=== PATIENT | female | born 1980 | race Caucasian/White ===

== ENCOUNTER 2024-11-27 20:15 | Emergency (ER) | payer OTHER, SELFPAY ==
--- NOTE | ~2024-11-27 | XR_ITS ---
EXAMINATION: XR chest 2V DATE: 11/27/2024 21:19 INDICATION: Shortness of breath. TECHNIQUE: Frontal and lateral views of the chest were obtained. COMPARISON: None. FINDINGS: There is mild atelectasis in left lower lung zone. No pleural effusion or pneumothorax. The heart size is normal. Surgical clips in the right upper quadrant are likely from cholecystectomy. IMPRESSION: 1. Mild atelectasis in left lower lung zone. Reviewed, dictated and finalized at location A. AT [facility]
[2024-11-27 20:20] VITALS: BP 179/100; PULSE 105; RESP 19; TEMP 36.2; O2SAT 99
--- NOTE | 2024-11-27 20:20 | ECG_ITS ---
Test Date: 2024-11-27 20:26:46 Measurements Intervals [place] Rate: 95 P: 40 GA: 163 QRS: 29 QRSD: 84 T: 39 QT: 342 QTc: 431 Interpretive Statements SINUS RHYTHM NORMAL ECG No previous ECG available for comparison Electronically Signed On 11-28-2024 07:03:46 TYPER by Jay Cotton D.O.
[2024-11-27 20:54] LABS: Basophils Absolute Auto 0.1 K/mm3 (0.0-0.1); Basophils Percent Auto 0.6 % (0.2-1.2); Eosinophils Absolute Auto 0.1 K/mm3 (0-0.3); Eosinophils Percent Auto 1.6 % (0-4.4); Hematocrit 34.7 % (37.0-47.0); Hemoglobin 10.5 g/dL (12.0-15.0); Immature Granulocyte Absolute 0.02 K/mm3 (0.00-0.031); Immature Granulocyte Percent A 0.2 % (0-0.5); Lymphocytes Absolute Auto 2.64 K/mm3 (0.9-3.2); Mean Corpuscular HGB Conc 30.3 g/dl (32-36); Mean Corpuscular Hemoglobin 23.3 pg (26-34); Mean Corpuscular Volume 77.1 fl (80-100); Mean Platelet Volume 9.9 fl (7.4-10.4); Monocytes Absolute Auto 0.6 K/mm3 (0.1-0.6); Monocytes Percent Auto 6.7 % (2.6-8.5); Neutrophils Absolute Auto 4.9 K/mm3 (1.3-6.7); Neutrophils Percent Auto 58.9 % (45.5-73.1); Platelet Count Result 261 k/mm3 (150-375); White Blood Count 8.2 K/mm3 (4.5-10.0)
[2024-11-27 21:07] LABS: Alanine Aminotransferase 18 U/L (6-35); Albumin Level 4.2 g/dL (3.5-5.1); Alkaline Phosphatase 113 U/L (38-126); Anion Gap 8 mmol/L (4-12); Aspartate Amino Transferase 19 U/L (14-36); Bilirubin,Total 0.4 mg/dL (0.2-1.3); Blood Urea Nitrogen 12 mg/dL (7-17); Calcium 9.5 mg/dL (8.4-10.2); Carbon Dioxide 28 mmol/L (22-30); Chloride 104 mmol/L (98-107); Estimated CRCL calculation 87 ml/min; Estimated Glomerular Filt Rate > 60; Glucose 127 mg/dL (65-110); Potassium 3.8 mmol/L (3.4-5.0); Sodium 140 mmol/L (137-145)
[2024-11-27 22:06] LABS: NT Pro B Type Natriuretic Pept 35 pg/mL (19.9-100)
[2024-11-27 22:24] VITALS: BP 156/90; PULSE 101; RESP 16; O2SAT 98
[2024-11-27 23:43] LABS: Influenza A QL RT-PCR Negative (Negative); Influenza B QL RT-PCR Negative (Negative); RSV RNA, RT-PCR Negative (Negative); SARS-CoV-2 RNA PCR Negative (Negative)
--- NOTE | 2024-11-28 00:15 | PC.NURSE ---
Report received from WALI Sauer. Assumed care of patient at this time.
--- NOTE | 2024-11-28 00:35 | ED.GENADULT ---
HPI - General Adult General Chief complaint: Shortness of Breath/Dyspnea Stated complaint: SOB Time Seen by Provider: 11/27/24 23:52 History of Present Illness HPI narrative: Patient is a 44-year-old female who presents emergency department this evening with multiple complaints. Patient states that for the past week she has been having a dry cough, shortness of breath, and noticed some lower extremity swelling. Patient is also complaining of hypertension and states that her blood pressure has been running high which is unusual for her. She admits that her blood pressure medication was recently adjusted, increased and she has been monitoring her blood pressure at home as instructed by her PCP, checking it twice daily. Currently denying any chest pain. Patient also denies any history of heart failure. No additional symptoms or concerns at this time. Related Data Allergies Allergy/AdvReac Type Severity Reaction Status Date / Time No Known Allergies Allergy Verified 11/27/24 20:20 Review of Systems Review of Systems: All systems are reviewed and are negative unless stated otherwise in the HPI. Exam Narrative: General: Alert, awake, afebrile, in no acute distress, obese. HEENT: PERRL, no rhinorrhea, no post nasal drip, oropharynx clear. Neck: Trachea midline, no JVD, no lymphadenopathy. Cardiovascular: Regular rate and rhythm, no murmurs, rubs or gallops, 1+ bilateral lower extremity pitting edema. Respiratory: Clear to auscultation bilaterally, no tachypnea, no wheezing, no rhonchi, no rubs, no respiratory distress. Abdomen: Soft, nontender, nondistended, no rebound, no guarding, no peritoneal signs. Musculoskeletal: No joint swelling or deformity, normal muscle tone. Skin: No rashes or petechia, no signs of infection. Psychiatric: Alert and oriented, normal behavior and judgment for situation. Neurological: Alert and oriented to person, place, and time. Follows all commands. No focal deficits, speech is clear and fluent. Course Vital Signs Vital signs: Vital Signs Temperature 97.1 F L 11/27/24 20:20 Pulse Rate 105 H 11/27/24 20:20 Respiratory Rate 19 11/27/24 20:20 Blood Pressure 179/100 H 11/27/24 20:20 Pulse Oximetry 99 11/27/24 20:20 Oxygen Delivery Room Air 11/27/24 20:20 Temperature 97.1 F L 11/27/24 20:20 Pulse Rate 101 H 11/27/24 22:24 Respiratory Rate 16 11/27/24 22:24 Blood Pressure 156/90 H 11/27/24 22:24 Pulse Oximetry 98 11/27/24 22:24 Oxygen Delivery Room Air 11/27/24 20:20 Medical Decision Making MDM Narrative Medical decision making narrative: The patient was evaluated by myself in the emergency department. History is obtained from patient who is an independent historian and physical exam was performed. External medical records were reviewed at this time. IV was established and pertinent tests were ordered. EKG was obtained which revealed sinus rhythm rate of 95 beats per minute. No ST changes, T wave inversions or evidence of acute ischemia. EKG was independently interpreted by me and is currently pending official cardiology read. Laboratory results obtained revealing no acute process. BNP was obtained and noted to be normal at 35. At this time patient was informed of these findings at bedside and recommended to wear compression stockings as this may help with her lower extremity edema as well as following up with her primary care physician and patient is agreeable. Imaging studies obtained included CXR which was independently interpreted by me revealing no acute cardiopulmonary process, which is pending final radiology interpretation. Differential diagnosis considerations include heart failure, lymphedema, DVT, venous insufficiency, acute viral syndrome, infectious process such as pneumonia. Comorbidities impacting this visit include history of hypertension. I have evaluated and discussed social determinants of health with the patient that could potentially impact subsequent diagnosis and treatment plans. On repeat assessment of the patient, reevaluation revealed that the patient is doing well and is in no acute distress. Patient symptoms remained stable since she arrived to our emergency department. Repeat vital signs were all reviewed and noted to be stable. Differential diagnosis and treatment plan were discussed with the patient at bedside. Patient agrees with discussion and after shared medical decision making agrees with discharge. All questions were answered to the patient's satisfaction. Patient will follow up with her PCP in 3-5 days. Patient was provided with strict return precautions and instructed to return to the emergency department if any new or worsening symptoms develop. The patient was discharged in stable condition. Vital Signs Vital Signs: Vital Signs Temperature 97.1 F L 11/27/24 20:20 Pulse Rate 105 H 11/27/24 20:20 Respiratory Rate 19 11/27/24 20:20 Blood Pressure 179/100 H 11/27/24 20:20 Pulse Oximetry 99 11/27/24 20:20 Oxygen Delivery Room Air 11/27/24 20:20 Temperature 97.1 F L 11/27/24 20:20 Pulse Rate 101 H 11/27/24 22:24 Respiratory Rate 16 11/27/24 22:24 Blood Pressure 156/90 H 11/27/24 22:24 Pulse Oximetry 98 11/27/24 22:24 Oxygen Delivery Room Air 11/27/24 20:20 Lab Data 11/27/24 20:45 11/27/24 20:45 Labs: Lab Results 11/27/24 11/27/24 Range/Units 20:45 23:02 WBC 8.2 (4.5-10.0) K/mm3 RBC 4.50 (4.2-5.4) M/mm3 Hgb 10.5 L (12.0-15.0) g/dL Hct 34.7 L (37.0-47.0) % MCV 77.1 L (80-100) fl MCH 23.3 L (26-34) pg MCHC 30.3 L (32-36) g/dl RDW 16.0 H (11.5-14.5) % Plt Count 261 (150-375) k/mm3 MPV 9.9 (7.4-10.4) fl Immature Gran % (Auto) 0.2 (0-0.5) % Neut % (Auto) 58.9 (45.5-73.1) % Lymph % (Auto) 32.0 (18.3-44.2) % Shackelford % (Auto) 6.7 (2.6-8.5) % Eos % (Auto) 1.6 (0-4.4) % Baso % (Auto) 0.6 (0.2-1.2) % Lymph # (Auto) 2.64 (0.9-3.2) K/mm3 [place]ackelford # (Auto) 0.6 (0.1-0.6) K/mm3 Eos # (Auto) 0.1 (0-0.3) K/mm3 Baso # (Auto) 0.1 (0.0-0.1) K/mm3 Abs Immat Gran (auto) 0.02 (0.00-0.031) K/mm3 Absolute Neuts (auto) 4.9 (1.3-6.7) K/mm3 Absolute Nucleated RBC 0.000 (0.0-0.012) K/mm3 Nucleated RBC % 0.0 (0.0-0.2) % Sodium 140 (137-145) mmol/L Potassium 3.8 (3.4-5.0) mmol/L Chloride 104 (98-107) mmol/L Carbon Dioxide 28 (22-30) mmol/L Anion Gap 8 (4-12) mmol/L BUN 12 (7-17) mg/dL Creatinine 0.89 (0.7-1.0) mg/dL Estim Creat Clear Calc 87 ml/min Estimated GFR > 60 (59 - ) Glucose 127 H (65-110) mg/dL Calcium 9.5 (8.4-10.2) mg/dL Total Bilirubin 0.4 (0.2-1.3) mg/dL AST 19 (14-36) U/L ALT 18 (6-35) U/L Alkaline Phosphatase 113 (38-126) U/L NT-Pro-B Natriuret Pep 35 (19.9-100) pg/mL Total Protein 7.0 (6.3-8.2) g/dL Albumin 4.2 (3.5-5.1) g/dL Influenza A (RT-PCR) Negative (Negative) Influenza B (RT-PCR) Negative (Negative) RSV (RT-PCR) Negative (Negative) SARS-CoV-2 RNA (RT-PCR) Negative (Negative) Discharge Plan Discharge Clinical Impression: Shortness of breath, URI (upper respiratory infection), Swelling of lower extremity Patient Disposition: Home, Self-Care Condition: Stable Instructions: Antibiotic Form, Upper Respiratory Infection (DC), Leg Edema (ED) Additional Instructions: Please follow-up with your family doctor within the next 3-5 days. You were recommended to try compression stocks to see if that helps with your lower extremity edema. Your family doctor may order an ultrasound of your lower extremity to rule out a DVT although this is unlikely given the bilateral nature of your symptoms. You were instructed to continue monitoring your blood pressure at home specially since her medication was recently adjusted. Return to the ED if any new or worsening symptoms develop. Patient Language: Greenlandic Follow-up/Referrals: Wil Nichols MD [Physician] - 3 Days UNKNOWN,DOCTOR [Primary Care Provider] - Time of Disposition: 00:34
[2024-11-28 00:48] VITALS: BP 153/89; PULSE 87; RESP 18; O2SAT 98
--- OUTSIDE RECORDS SUMMARY | 2024-11-28 00:50 | XMS_ITS ---
Author Organization [facility] Planning Address [address] [place] [id number] Care Team Providers Care Wrap Yarn Sorter Name Role Phone Maupin, Sydney Primary Care Provider [phone] REASON FOR VISIT medication refills Medications Medication SIG (Take, Route, Frequency, Duration) Notes Start Date End Date Status oxyBUTYnin Chloride ER 15 MG 1 tablet Orally every 12 hours for 30 days Active Elmiron 100 MG 1 capsule on an empt y stomach Orally every 8 hours for 30 days Active Valtrex 1 GM 1 tablet Orally Once a day for 30 days Active Problems Problem Type SNOMED Code ICD Code Onset Dates Problem Status W/U Status Risk Notes Problem Interstitial cystitis (622118600) Interstitial cystitis (N30.10) Active confirmed Encounters Encounter Location Date Provider Diagnosis [address] [phone] 07/03/2023 Sydney Martínez Herpes simplex B00.9 ; Urinary incontinence R32 and Interstitial cystitis N30.10 Assessments Encounter Date Diagnosis (ICD Code) Assessment Notes Treatment Notes Treatment Clinical Notes Section Notes 07/03/2023 Herpes simplex (ICD-10 - B00.9) 07/03/2023 Urinary incontinence (ICD-10 - R32) 07/03/2023 Interstitial cystitis (ICD-10 - N30.10) Plan Of Treatment Medication Medication Name Sig Start Date Stop Date Notes oxyBUTYnin Chloride ER 15 MG 1 tablet Or ally every 12 hours for 30 days Elmiron 100 MG 1 capsule on an empt y stomach Orally every 8 hours for 30 days Valtrex 1 GM 1 tablet Orally Once a day for 30 days Progress Notes * Michelle BRIGGS RDOB: 2 (42 yo F)Acc No.[id number]:07/03/2023 Patient: Michelle Ware :1980 A ge:42 Y S ex:Female Address:[address] [place] [id number] * Refills Refill Elmiron Capsule, 100 MG, Orally, 90 Capsule, 1 capsule on an empty stomach, every 8 hours, 30 days, Refills=5 Refill Valtrex Tablet, 1 GM, Orally, 30 Tablet, 1 tablet, Once a day, 30 days, Refills=5 Refill oxyBUTYnin Chloride ER Tablet Extended Release 24 Hour, 15 MG, Orally, 60 Tablet, 1 tablet, every 12 hours, 30 days, Refills=5 Subjective: * Chief Complaints: * M edication refills * Medical History: * Surgical History: * Hospitalization/Major Diagno stic Procedure: * Medications: Objective: Assessment: * Assessment: 1. U rinary incontinence - R32 2 . H erpes simplex - B00.9 (Primary) 3 . I nterstitial cystitis - N30.10 Plan: * Treatment: 2. U rinary incontinence Refill Elmiron Capsule, 100 MG, 1 capsule on an empty stomach, Orally, every 8 hours, 30 days, 90 Capsule, Refills 5; R efill oxyBUTYnin Chloride ER Tablet Extended Release 24 Hour, 15 MG, 1 tablet, Orally, every 12 hours, 30 days, 60 Tablet, Refills 5. * Procedure Codes: * true * Date: Generated for Jonnie koroma/Jose/Noemismitting on: 0 11/28/2024 12:50 AM DIVIDING MACHINE OPERATOR
--- OUTSIDE RECORDS SUMMARY | 2024-11-28 00:50 | XMS_ITS | Clinical Summary ---
Author Organization [facility] Address [address] [place] [id number] Care Team Providers Care Coating And Baking Operator Name Role Phone Telma Noel BLOCK MACHINE OPERATOR-C Primary Care Provider [phone] Allergies Active Allergy Reactions Criticality Noted Date Comments Noah Inhibitors Cough Medium 02/24/2014 Metronidazole Nausea And Vomiting 06/28/2024 Medications Medication Sig Dispensed Refills Start Date End Date Status aripiprazole (ABILIFY) 30 MG tablet Take 0.5 tablets (15 mg) by mouth daily Active estradiol (ESTRACE) 1 MG tablet Take 1 tablet (1 mg) by mouth daily Active estradiol (ESTRACE) 2 MG tablet TK ONE T PO ONCE DAILY Active oxyBUTYnin (DITROPAN-XL) 10 MG CR tablet TK 1 T PO ONCE D Active progesterone (PROMETRIUM) 100 MG capsule Take 1 capsule (100 mg) by mouth at bedtime Active valACYclovir (VALTREX) 1000 mg tablet Take 1 tablet (1,000 mg) by mouth daily Active valACYclovir (VALTREX) 500 MG tablet TK 1 T PO Q 24 H Active DULoxetine (CYMBALTA) 60 MG capsule Take 2 capsules (120 mg) by mouth daily Active busPIRone (BUSPAR) 15 MG tablet Take 1 tablet (15 mg) by mouth 2 times daily Active esomeprazole (NEXIUM) 20 MG capsule Take 1 capsule (20 mg) by mouth 2 times daily 60 capsule 2 5 01/18/20 25 Active amphetamine-dextr oamphetamine (ADDERALL) 20 MG tabletIndications :Attention deficit hyperactivity disorder (ADHD), predominantly inattentive type Take 1 tablet (20 mg) by mouth 2 times daily for 30 days 60 tablet 5 12/06/19 25 Active metoprolol succinate (TOPROL XL) 50 MG XL tabletIndications :Hypertension, unspecified type Take 1 tablet (50 mg) by mouth at bedtime for 30 days 30 tablet 5 12/23/19 25 Active amphetamine-dextr oamphetamine (ADDERALL) 20 MG tablet Take 1 tablet (20 mg) by mouth 2 times daily 11/05/19 25 Discontinued(Reo rder) ibuprofen (MOTRIN) 800 MG tablet 1 tablet with food or milk as needed Orally every 8 hrs for 5 days 11/15/19 25 Discontinued hydrOXYzine (VISTARIL) 25 MG capsule 1-2 capsule as needed Orally every 8 hrs 8 11/15/19 25 Discontinued Vitamin D, Ergocalciferol, [address] UNIT capsuleIndication s:Vitamin D Deficiency Take 1 capsule (50,000 Units) by mouth every 7 days Indications: Vitamin D Deficiency 5 capsule 2 4 11/08/19 25 cyanocobalamin 1000 MCG/ML injection Inject 1 mL (1,000 mcg) into the muscle every 30 days 1 mL 2 4 11/08/19 25 metoprolol tartrate (LOPRESSOR) 25 MG tabletIndications :Tachycardia,Anxi ety Take 0.5 tablets (12.5 mg) by mouth 2 times daily 30 tablet 2 4 11/15/19 25 Discontinued amoxicillin-clavu lanate (AUGMENTIN) 875-125 MG per tabletIndications :Acute Otitis Media Take 1 tablet by mouth 2 times daily for 5 days Indications: Acute Infection of the Middle Ear 10 tablet 5 11/10/19 25 metoprolol tartrate (LOPRESSOR) 25 MG tablet Take 0.5 tablets (12.5 mg) by mouth 2 times daily 11/22/19 25 Discontinued(Dis continued by MD) Hospital, Clinic, or Other Facility Administered Medication Ordered Dose Route Frequency Start Date End Date Status ondansetron (ZOFRAN) injection 4 mgIndications:Nausea 4 mg IM ONCE 11/15/2024 11/15/2024 Ende d Active Problems Problem Noted Date Diagnosed Date Sleep apnea-like behavior 09/17/2024 Mixed anxiety and depressive disorder 08/09/2024 Sacroiliac joint pain 08/09/2024 Attention deficit hyperactivity disorder (ADHD) 06/01/2024 Dyspnea on exertion 04/07/2024 Tachycardia 04/06/2024 High thyroid stimulating hormone (TSH) level Prediabetes 03/31/2024 Apnea 08/06/2019 Chronic interstitial cystitis 08/06/2019 Cobalamin deficiency 08/06/2019 Essential hypertension 08/06/2019 Fatigue 08/06/2019 Gastroesophageal reflux disease 08/06/2019 Genital herpes simplex 08/06/2019 Overview (08/09/2024): on Valacyclovir 500mg QD; follows with OBGYN Dr. Jauregui Malaise and fatigue 08/06/2019 Migraine 08/06/2019 Obesity 08/06/2019 Postmenopausal state 08/06/2019 Overview (08/09/2024): on Estradiol 1mg QDl; follows with OBNAE Jauregui Rheumatoid factor positive 08/06/2019 Skin sensation disturbance 08/06/2019 Vitamin D deficiency 08/06/2019 Encounters Date Type Department Care Team Description 11/22/2024 Orders Only [address] [phone] Telma Noel FNP-C Hypertension, unspecified type (Primary Dx) 11/20/2024 5:38 AM MACHINE II CUTTER - 11/20/2024 7:09 AM [facility] Emergency [facility] Emergency Department [address] [place] [address] Cesar Vaca MD Arm pain, musculoskeletal, right (Primary Dx); Elevated blood pressure reading Discharge Disposition: AMA 11/15/2024 9:45 AM MACHINE II CUTTER Office Visit [address] [phone] Telma Noel FNP-C Essential hypertension (Primary Dx); Tachycardia; Nausea; Fatigue, unspecified type 11/05/2024 9:15 AM MACHINE II CUTTER Office Visit [address] [phone] Telma oNel FNP-C At increased risk for exposure to influenza virus (Primary Dx); Non-recurrent acute serous otitis media of right ear; Upper respiratory infection, viral; Shortness of breath; Ear pain, bilateral; Cough, unspecified type 11/05/2024 Orders Only [facility] [address] [place] [phone] Telma Noel FNP-C Attention deficit hyperactivity disorder (ADHD), predominantly inattentive type (Primary Dx) 10/18/2024 Refill [facility] [address] [place] [phone] Allegra Silva APRN Medication Refill from Last 3 Months Immunizations Name Administration Dates Next Due DTP Immunization, IM 04/26/1987,01/01/19 84,04/24/1982,[birth year] Influenza =>65yo, High Dose, Preservative Free 06/14/2013 Influenza Quadrivalent, Pres ervative Free 07/09/2018 Influenza Split Virus 07/31/2015, 014,06/14/2013,2011,06/20/2011 Influenza Split Virus Preser vative Free 07/30/2017,06/27/2016,07/30/2015 MMR 05/09/1992,02/06/1983 OPV 04/26/1987, 4,04/24/1982,1981,1981 TD (Adult), Adsorbed 08/04/1997 Social History Tobacco Use Types Packs/Day Years Used Date Smoking Tobacco: Never Passive Smoke Exposure: Never Smokeless Tobacco: Never Tobacco Cessation:Counseling Given: Yes Alcohol Use Standard Drinks/Week Comments Not Currently 0 (1 standard drink = 0.6 oz pur e alcohol) [facility] Utilities Answer Date Recorded In the past 12 months has e Lollipuff, gas, oil, or water Rosalind threatened to shut off services in your home? No 11/20/2024 Humiliation, Afraid, Rape, and Kick questionnair e Answer Date Recorded Within the last year, have y ou been afraid of your partner or ex-partner? No 11/20/2024 Within the last year, have y ou been humiliated or emotionally abused in other ways by your partner or ex-partner? No Within the last year, have y ou been kicked, hit, slapped, or otherwise physically hurt by your partner or ex-partner? No 11/20/2024 Within the last year, have y ou been raped or forced to have any kind of sexual activity by your partner or ex-partner? No 11/20/2024 PHQ-2 Answer Date Recorded PHQ-2 Score 0 11/15/2024 Hunger Vital Sign Answer Date Recorded Within the past 12 months, y ou worried that your food would run out before you got the money to buy more. Never true 11/20/19 25 Within the past 12 months, t he food you bought just didn't last and you didn't have money to get more. Never true 11/20/2024 PRAPARE - Transportation Answer Date Re corded In the past 12 months, has l ack of transportation kept you from medical appointments or from getting medications? No 11/06 In the past 12 months, has l ack of transportation kept you from meetings, work, or from getting things needed for daily living? No 11/20/2024 Housing Stability Vital Sign Answer Jamison e Recorded In the last 12 months, was t here a time when you were not able to pay the mortgage or rent on time? No 11/20/2024 Number of Times Moved in the Last Year Not on fi le 11/20/2024 At any time in the past 12 m [facility], were you homeless or living in a fpc (including now)? No 11/20/2024 Alcohol Use Answer Date Recorded Frequency of Alcohol Consumption Not on file 05/29/2024 Average Number of Drinks Not on file 024 Frequency of Binge Drinking Not on file 05/07 Alcohol Use Status Not Currently 05/29/2024 Average alcohol consumption Not on file 05/07 Sex and Gender Information Value Date Recorded Sex Assigned at Not on file Gender Identity Not on file Sexual Orientation Not on file Last Filed Vital Signs Vital Sign Reading Time Taken Comments Blood Pressure 157/117 11/20/2024 5:07 AM MACHINE II CUTTER Pulse 91 11/20/2024 5:07 AM MACHINE II CUTTER Temperature 36.7 C (98 F) 11/20/2024 5:07 AM MACHINE II CUTTER Respiratory Rate 17 11/20/2024 5:07 AM MACHINE II CUTTER Oxygen Saturation 97% 11/20/2024 5:07 AM MACHINE II CUTTER Inhaled Oxygen Concentration - - Weight 124.7 kg (275 lb) 11/20/2024 5:07 AM MACHINE II CUTTER Height 154.9 cm (5' 1 ) 11/20/2024 5:07 AM MACHINE II CUTTER Body Mass Index 51.96 11/20/2024 5:07 AM MACHINE II CUTTER Plan of Treatment Health Maintenance Due Date Last Done Comments Influenza Vaccine 02/02/2025 07/09/2018, , 06/27/2016, Additional history exists Postponed from 05/06/2024 (Patient defers for now but may consider at later date) YEARLY WELLNESS EXAM 04/01/2025 04/01/2024 BMI Above/Below Normal Parameters 11/05/2025 11/05/2024 BREAST CANCER SCREENING 11/05/2025 Post poned from 2021 (Patient defers for now but may consider at later date) CERVICAL CANCER SCREENING 11/05/2025 Po stponed from 2002 (Patient defers for now but may consider at later date) HEPATITIS B VACCINES (1 of 3 - 19+ 3-dose series) 11/05/2025 Postponed from 2000 (Patient defers for now but may consider at later date) Hepatitis C Screening ages 18 to 79 once 11/05/2025 Postponed from 1981 (Patient defers for now but may consider at later date) DEPRESSION SCREENING 11/15/2025 11/15/2024, 08/09/20 24 Diabetes Screening 08/09/2027 08/09/2024, 03/30/2024 Zoster Vaccine (Recombinant Vaccine) (1 of 2) 2031 MMR VACCINES Discontinued 05/09/1992, 02/06/1983 ADULT TETANUS Discontinued 08/04/1997 COVID-19 Immunization Discontinued HEPATITIS A VACCINES Aged Out No long er eligible based on patient's age to complete this topic HIB VACCINES Aged Out No longer eligi ble based on patient's age to complete this topic HIV Screening Discontinued HPV VACCINES Aged Out No longer eligi ble based on patient's age to complete this topic IPV VACCINES Aged Out No longer eligi ble based on patient's age to complete this topic MENINGOCOCCAL VACCINE Aged Out No keshav teresa eligible based on patient's age to complete this topic Pneumococcal Vaccine: Peds(0 to 5 Years) & At-Risk Patients (6 to 64 Years) Aged Out No longer eligible based on patient's age to complete this topic ROTAVIRUS VACCINES Aged Out No longer eligible based on patient's age to complete this topic Varicella Vaccine Discontinued Procedures Procedure Name Priority Date/Time Associated Diagnosis Comments POCT INFLUENZA A/B Routine 11/05/2024 9: 43 AM MACHINE II CUTTER Shortness of breath Ear pain, bilateral Cough, unspecified type HEMOGLOBIN A1C Routine 08/09/2024 1:00 PM MACHINE II CUTTER Elevated glucose from Last 3 Months or Most Recently Relevant to Health Maintenance Results * POCT INFLUENZA A/B (11/05/2024 9:43 AM MACHINE II CUTTER) Influenza A Ab negative [facility] Influenza B Ab negative [facility] 11/05/2024 9:43 AM MACHINE II CUTTER Telma Noel BLOCK MACHINE OPERATOR-C POINT OF CARE TEST O RDERABLES [facility] [address] [place] [address], [facility] * (ABNORMAL) HEMOGLOBIN A1C (08/09/2024 1:00 PM MACHINE II CUTTER) Hemoglobin A1C 6.0 4 - 6 % [facility] Estimated Average Glucose 126(H) 68 - 114 MG/DL [facility] Blood 08/09/2024 1:00 PM MACHINE II CUTTER 08/11/2024 1:11 PM MACHINE II CUTTER Telma Noel BLOCK MACHINE OPERATOR-C CHEMISTRY ORDERABLES [facility] [address] [phone] from Last 3 Months or Most Recently Relevant to Health Maintenance Care Teams Coating And Baking Operator Relationship Specialty Start Date End Date Telma Noel FNP-C [address] [place], [place] [id number] PCP - General Nurse Practitioner-Family 08/23/24
--- OUTSIDE RECORDS SUMMARY | 2024-11-28 00:50 | XMS_ITS | Encounter Summary ---
Author Organization [facility] Address [address] [place] [address] Care Team Providers Care Fire Patrol Name Role Phone Love Shahana BARREL BUILDER-[facility] Primary Care Provider + Telma Noel BARREL BUILDER-[facility] Primary Care Provider [phone] Haley Valadez MD Unavailable [phone] Reason for Visit * Reason Onset Date Comments MEDICATION REFILL 05/20/2024 Encounter Details Date Type Department Care Team (Late st Contact Info) Description 05/20/2024 Refill [facility] [address] [place] [address] Adam Joe[facility] [address] [place] [address] MEDICATION REFILL Social History Tobacco Use Types Packs/Day Years Used Date Smoking Tobacco: Never Smokeless Tobacco: Never Alcohol Use Standard Drinks/Week Comments No 0 (1 standard drink = 0.6 oz pur e alcohol) PHQ-2 Answer Date Recorded PHQ2 TOTAL SCORE 0 07/28/2022 Sex and Gender Information Value Date Recorded Sex Assigned at Not on file Gender Identity Not on file Sexual Orientation Not on file documented as of this encounter Functional Status Functional Status Response Date of Assess ment Is person deaf or have serious hearing difficult y? No 05/13/2019 Is person blind or have serious difficulty seein g? No 05/13/2019 Does person have serious dif ficulty walking/climbing stairs? No 05/13/2019 Does person have difficulty dressing/bathing? No 05/13/2019 Does person have difficulty doing errands alone? No 05/13/2019 Cognitive Status Response Date of Assess ent Does person have difficulty concentrating/remembering/making decisions? No 05/13/2019 documented as of this encounter Plan of Treatment Upcoming Encounters Date Type Department Care Team (Late st Contact Info) Description 12/07/2024 2:30 PM MODEL MAKER SCALE Office Visit [facility] - Family Medicine [address] [place] [address] Haley Valadez MD [address] [place] [address] Kelsie Huffman DO [address] [place] [address] 12/15/2024 4:20 PM CDT Office Visit [facility] [address] [place] [address] Adam Joe, BARREL BUILDER-[employer] [address] [place] [address] 12/24/2024 8:00 AM CDT Appointment [facility] - Respiratory Therapy [address] [place], [place] [address] Haley Valadez MD [address] [place] [address] 12/24/2024 9:00 AM CDT Appointment [facility] Respiratory Therapy [address] [place], [place] [id number] Haley Valadez MD [address] [place] [address] 12/24/2024 10:30 AM CDT Appointment [facility] - CT Scan [address] [place] [address] Haley Valadez MD [address] [place] [address] 04/19/2025 10:30 AM CDT Office Visit [facility] V[facility] [address] [facility], [address] [place] [address] Aidan Mckeon MD [address] [facility] [address] [place] [address] documented as of this encounter Visit Diagnoses Diagnosis Major depression documented in this encounter Care Teams Fire Patrol Relationship Specialty Start Date End Date Shahana Aleman APRN-KILN CAR UNLOADER [address], [address] [place] [phone] PCP - General Nurse Practitioner Family 05/05/1909/09/24 Telma Noel APRN-CNP [address] [place] [address] PCP - General Nurse Practitioner Family 09/10/24 Haley Valadez MD [address] [place] [address] Physician Pulmonary Disease 09/17/24 documented as of this encounter
--- OUTSIDE RECORDS SUMMARY | 2024-11-28 00:50 | XMS_ITS | Encounter Summary ---
Author Organization [facility] Address [address] [place] [address] Care Team Providers Care Political Science Professor Name Role Phone Love Shahana LOCK CORNER MACHINE OPERATOR-[facility] Primary Care Provider + Telma Noel LOCK CORNER MACHINE OPERATOR-[facility] Primary Care Provider [phone] Haley Valadez MD Unavailable [phone] Encounter Details Date Type Department Care Team (Late st Contact Info) Description 06/01/2024 Telephone [facility] Behavioral Health [address] [place] [address] Adam Joe, [facility] [address] [place] [address] Social History Tobacco Use Types Packs/Day Years [...] No 05/13/2019 Cognitive Status Response Date of Assessm ent Does person have difficulty concentrating/remembering/making decisions? No 05/13/2019 documented as of this encounter Miscellaneous Notes * Telephone Encounter - Valentina Osei RN - 06/01/2024 10:05 AM CDT Michelle voiced understanding. Will call to see if any cancellations periodically. documented in this encounter Plan of Treatment Upcoming Encounters Date Type Department Care Team (Late st Contact Info) Description 12/07/2024 2:30 PM MOTIVATIONAL SPEAKER Office Visit [facility] - Family Medicine [address] [place] [phone] Haley Valadez MD 1 [place] [phone] Kelsie Huffman DO [address] [place] [address] 12/15/2024 4:20 PM CDT Office Visit [facility] Behavioral Health 2 [place] [address] Adam Jeo, LOCK CORNER MACHINE OPERATOR-FORMING AND ASSEMBLING SUPERVISOR [address] [place] [address] 12/24/2024 8:00 AM CDT Appointment [facility] Respiratory Therapy 1 [place], [place] [address] Haley Valadez MD [address] [place] [address] 12/24/2024 9:00 AM CDT Appointment [facility] Respiratory Therapy 1 [place], [place] [id number] Haley Valadez MD [address] [place] [address] 12/24/2024 10:30 AM CDT Appointment [facility] - CT Scan 1 [place] [address] Haley Valadez MD [address] [place] [address] 04/19/2025 10:30 AM CDT Office Visit [facility] Vascular Care [address] [facility] [place] [address] Aidan Mckeon MD [address] [facility] [address] [place] [address] documented as of this encounter Visit Diagnoses Not on filedocumented in this encounter Care Teams Political Science Professor Relationship Specialty Start Date End Date Shahana Aleman APRN-CNP [address], [address] [place] [address] PCP - General Nurse Practitioner Family 05/05/1909/09/24 Telma Noel APRN-CNP [address] [place] [address] PCP - General Nurse Practitioner Family 09/10/24 Haley Valadez MD [address] [place] [address] Physician Pulmonary Disease 09/17/24 documented as of this encounter
--- OUTSIDE RECORDS SUMMARY | 2024-11-28 00:50 | XMS_ITS ---
Author Organization [facility] Planning Address [address] [address] [address] [place] [address] Care Team Providers Care Joint Yarner Name Role Phone Sydney Martínez Primary Care Provider Allergies No Known Allergies REASON FOR VISIT Patient presents today for med f/u and flu shot Medications Medication SIG (Take, Route, Frequency, Duration) Notes Start Date End Date Status Invega 9 MG 1 tablet in the morn ing Orally Once a day 01/21/2019 Not-Taking Topamax 25 MG 1 tablet Orally Suze y for 30 days Active Vistaril 25 MG 1-2 capsule as neede d Orally every 8 hrs 06/18/2018 Not-Taking Ibuprofen 800 MG 1 tablet with food o r milk as needed Orally every 8 hrs for 5 days Not-Takin g Hydrocortisone Acetate 1 % 1 application - dispense 1 tube Externally every 12 hours for 14 days 06/02/2023 Not-Taking oxyBUTYnin Chloride ER 15 MG 1 tablet Orally twice daily Active Abilify 30 MG 1/2 tab Orally Once a day Active busPIRone HCl 30 MG 1/2 tab Orally Twice a day for 30 days 08/20/2018 Active Diclofenac Sodium 50 MG 1 tablet Orally every 8 hours as needed for 14 days 05/21/2023 Not-Taking DULoxetine HCl 60 MG 1 capsule Orally On ce a day for 30 days Not-Taking Estradiol 1 MG 1 tablet Orally Once a day Active Valtrex 1 GM 1 tablet Orally Once a day Active Progesterone 100 MG 1 capsule at bedtime Orally Once a day Active Cymbalta 60 MG 1 capsule Orally twi ce daily Active Adderall 20 MG 1 tablet Orally Twic e a day Active Ketorolac Tromethamine 60 MG/2ML 2ml Intramuscular once in office today for 1 days Not-Taking Oseltamivir Phosphate 75 MG 1 capsule Orally every 12 hours for 5 days 06/05/2023 Not-Taking predniSONE 20 MG 1 tablet Orally ever y 12 hours for 5 days 05/21/2023 Not-Taking Elmiron 100 MG 1 capsule on an empt y stomach Orally Three times a day Active Immunizations Vaccine Route Administration Date Status Comme nts Non VFC Fluarix Quad IM Intramuscular 07/03/2023 Administe red Social History Tobacco Use: Social History Observation Description Date Details (start date - stop date) Never Smoker NA - NA Tobacco Use/Smoking Question Answer Notes Are you a nonsmoker DAST-10 (2020 Edition) Question Answer Notes 1. Have you used drugs other than those required for medical reasons? No 2. Do you abuse more than one drug at a time? No 3. Are you always able to st op using drugs when you want to? Yes 4. Have you had blackouts or flashbacks as a result of drug use? No 5. Do you ever feel bad or guilty about your anila g use? No 6. Does your spouse (or pare nts) ever complain about your involvement with drugs? No 7. Have you neglected your f amily because of your use of drugs? No 8. Have you engaged in illeg al activities in order to obtain drugs? No 9. Have you ever experienced withdrawal symptoms (felt sick) when you stopped taking drugs? No 10. Have you had medical pro blems as a result of your drug use (e.g., memory loss, hepatitis, convulsions, bleeding etc.)? No Results: 0 Interpretation of Score: No problems reported Section Notes: Biological mother and adopti ve father were main caretakers throughout childhood. Good relationship with mother. Really good relationship with dad. Biological father has had no involvement in her life. 1 older brother, 1 younger brother, 1 younger sister. in 2008. Father of children are not involved in her children's lives. Pattern of involvement in relationships with significant others who are unfaithful to her. Pt. currently in relationship that she considers to be off and on. He is unfaithful to her but remains in the relationship despite stating he is bad for her. Problems Problem Type SNOMED Code ICD Code Onset Dates Problem Status W/U Status Risk Notes Problem Urinary incontinence (518973501) Urinary incontinence (R32) Active confirmed Vital Signs Temperature 97.1 degrees Fahrenheit 07/03/20 23 Blood pressure systolic 132 mm Hg 07/03/20 23 Blood pressure diastolic 80 mm Hg 023 Heart Rate 101 /min 07/03/2023 Respiratory Rate 20 /min 07/03/2023 Height 61.75 in 07/03/2023 Weight 248 lbs 07/03/2023 BMI 45.72 kg/m2 07/03/2023 Oximetry 95 % 07/03/2023 Height-cm 156.85 cm 07/03/2023 Weight-kg 112.49 kg 07/03/2023 Encounters Encounter Location Date Provider Diagnosis [address] [facility] [place] [address] 07/03/2023 Sydney Martínez Encounter for immunization Z23 ; Urinary incontinence R32 and BMI 45.0-49.9, adult Z68.42 Assessments Encounter Date Diagnosis (ICD Code) Assessment Notes Treatment Notes Treatment Clinical Notes Section Notes 07/03/2023 Encounter for immunization (ICD-10 - Z23) 07/03/2023 Urinary incontinence (ICD-10 - R32) Medications refilled I am not able to manage hormones so she will need to continue to see her GUTTER INSTALLER for this Discussed plan of care with patient, and she verbalized understanding Followup in 6 months. 07/03/2023 BMI 45.0-49.9, adult (ICD-10 - Z68.42) Plan Of Treatment Treatment Notes Assessment Notes Urinary incontinence Medications refilled I am not able to manage hormones so she will need to continue to see her GUTTER INSTALLER for this Discussed plan of care with patient, and she verbalized understanding Followup in 6 months. Next Appt Details Follow Up: 6 months, Reason: f/u chronic conditions Progress Notes * Michelle BRIGGS RDOB: 2 (42 yo F)Acc No.[id number]:07/03/2023 Progress Notes Patient: Yohannes munoz Michelle García Provider: OBIE Gomez :1980 A ge:42 Y S ex:Female Date:07/03/2023 Address:[address] [id number] Check Out:11:06 AM BATTER OUT Subjective: * Chief Complaints: * P atient presents today for med f/u and flu shot * HPI: D epression Screening: PHQ-2 (2015 Edition) L ittle interest or pleasure in doing things??Not at all F eeling down, depressed, or hopeless? N ot at all T otal Score 0 F abdulaziz Questionnaire: Denies : Is the patient sick (with an illness other than a cold)?. Denies : Fever greater than 100 degrees F in last 24 hours?.? Denies : Allergic to Chicken, eggs, feathers, dander or Thimerosal?. Denies : List food and medication allergies:. Denies : Patient ever had convulsions or neurological problems?. Denies : Has patient had reaction to influenza dose or hx of GBS?. Denies : or plan to become ?. I understand the possible side effects of influenza vaccine.?Yes. I consent to receiving the influenza vaccine. Y es. C onstitutional: Historian: Yohannes zarate. Patient presents today for medication refills. States she sees psychiatrist for mental health medications, and she sees GUTTER INSTALLER for hormones. * ROS: G eneral/Constitutional: Patient denies f atigue, fever, headache, body aches. ? R espiratory: Patient denies c ough, shortness of breath, wheezing. ? C ardiovascular: Patient denies c hest pain, dizziness, palpitations. ? G astrointestinal: Patient denies c hronic constipation, vomiting, abdominal pain, diarrhea, nausea. G enitourinary: Patient complaining of u rinary incontinence. ? S kin: Patient denies i tching, rash. N eurologic: Patient denies d izziness. * Medical History: * Surgical History: G allbladder 2013Tonsillectomy 3rd gradeHYSTERECTOMY(05562) 09/2014 * Hospitalization/Major Diagno stic Procedure: P sychiatric hospitalizations - [facility] in [facility] 2002Hysterectomy at [facility] 09/2014[facility] for anxiety/depression 05/2018Gallbladder removed at [address] 05/24/2018 * Family History: F ather: alive, family history unknown . M other: alive, thyroid disease. M aternal Grand Mother: thyroid disease. S iblings: family history unknown . * Social History: P [facility] Comprehensive Health Assessment : D o you have any social/cultural characteristics? S ocial Characteristics: Y es H ighest level of education: S [employer] C oncerns with daily living situations: N one S upport from family/friends: Y es P articipation in community activities: Y es C ultural Characteristics: N o C ommunication Barriers Are: N one Household/Enviromental Risk Factors A ny Patient/Family Concerns : Y es M ental Health Issues A nxiety, Bipolar Disorder, Depression S ubstance/Alcohol Abuse N one Assessment of Health Literacy U nderstands how to take medication Y es U nderstands risks/side effects of medication?Yes U nderstands Diagnosis and Treatment Plan Y es I s the patient able to afford their medication Y es D oes patient have an Advanced Directive? N o D ate Last Health Assessment Completed : 0 07/03/2023 T obacco Use: T obacco Use/Smoking A re you a n onsmoker D AST Form: D AST-10 (2020 Edition) 1 . Have you used drugs other than those required for medical reasons? N o 2 . Do you abuse more than one drug at a time??No 3 . Are you always able to stop using drugs when you want to? Y es 4 . Have you had blackouts or flashbacks as a result of drug use? N o 5 . Do you ever feel bad or guilty about your drug use? N o 6 . Does your spouse (or parents) ever complain about your involvement with drugs? N o 7 . Have you neglected your family because of your use of drugs? N o 8 . Have you engaged in illegal activities in order to obtain drugs? N o 9 . Have you ever experienced withdrawal symptoms (felt sick) when you stopped taking drugs? N o 1 0. Have you had medical problems as a result of your drug use (e.g., memory loss, hepatitis, convulsions, bleeding etc.)? N o R esults: 0 I nterpretation of Score: N o problems reported B iological mother and adoptive father were main caretakers throughout childhood. Good relationship with mother. Really good relationship with dad. Biological father has had no involvement in her life. 1 older brother, 1 younger brother, 1 younger sister. in 2008. Father of children are not involved in her children's lives. Pattern of involvement in relationships with significant others who are unfaithful to her. Pt. currently in relationship that she considers to be off and on. He is unfaithful to her but remains in the relationship despite stating he is bad for her. * Medications: T akingAbilify 30 MG Tablet 1/2 tab Orally Once a day Adderall 20 MG Tablet 1 tablet Orally Twice a day busPIRone HCl 30 MG Tablet 1/2 tab Orally Twice a day Cymbalta 60 MG Capsule Delayed Release Particles 1 capsule Orally twice daily Elmiron 100 MG Capsule 1 capsule on an empty stomach Orally Three times a day Estradiol 1 MG Tablet 1 tablet Orally Once a day oxyBUTYnin Chloride ER 15 MG Tablet Extended Release 24 Hour 1 tablet Orally twice daily Progesterone 100 MG Capsule 1 capsule at bedtime Orally Once a day Topamax 25 MG Tablet 1 tablet Orally Daily Valtrex 1 GM Tablet 1 tablet Orally Once a day Taking Abilify 30 MG Tablet 1/2 tab Orally Once a day Taking Adderall 20 MG Tablet 1 tablet Orally Twice a day Taking busPIRone HCl 30 MG Tablet 1/2 tab Orally Twice a day Taking Cymbalta 60 MG Capsule Delayed Release Particles 1 capsule Orally twice daily Taking Elmiron 100 MG Capsule 1 capsule on an empty stomach Orally Three times a day Taking Estradiol 1 MG Tablet 1 tablet Orally Once a day Taking oxyBUTYnin Chloride ER 15 MG Tablet Extended Release 24 Hour 1 tablet Orally twice daily Taking Progesterone 100 MG Capsule 1 capsule at bedtime Orally Once a day Taking Topamax 25 MG Tablet 1 tablet Orally Daily Taking Valtrex 1 GM Tablet 1 tablet Orally Once a day Not-Taking/PRNDiclofenac Sodium 50 MG Tablet Delayed Release 1 tablet Orally every 8 hours as needed DULoxetine HCl 60 MG Capsule Delayed Release Particles 1 capsule Orally Once a day Hydrocortisone Acetate 1 % Ointment 1 application - dispense 1 tube Externally every 12 hours Ibuprofen 800 MG Tablet 1 tablet with food or milk as needed Orally every 8 hrs Invega 9 MG Tablet Extended Release 24 Hour 1 tablet in the morning Orally Once a day Ketorolac Tromethamine 60 MG/2ML Solution 2ml Intramuscular once in office today Oseltamivir Phosphate 75 MG Capsule 1 capsule Orally every 12 hours predniSONE 20 MG Tablet 1 tablet Orally every 12 hours Vistaril 25 MG Capsule 1-2 capsule as needed Orally every 8 hrs Medication List reviewed and reconciled with the patientNot- Taking/PRN Diclofenac Sodium 50 MG Tablet Delayed Release 1 tablet Orally every 8 hours as needed Not-Taking/PRN DULoxetine HCl 60 MG Capsule Delayed Release Particles 1 capsule Orally Once a day Not-Taking/PRN Hydrocortisone Acetate 1 % Ointment 1 application - dispense 1 tube Externally every 12 hours Not-Taking/PRN Ibuprofen 800 MG Tablet 1 tablet with food or milk as needed Orally every 8 hrs Not-Taking/PRN Invega 9 MG Tablet Extended Release 24 Hour 1 tablet in the morning Orally Once a day Not-Taking/PRN Ketorolac Tromethamine 60 MG/2ML Solution 2ml Intramuscular once in office today Not-Taking/PRN Oseltamivir Phosphate 75 MG Capsule 1 capsule Orally every 12 hours Not-Taking/PRN predniSONE 20 MG Tablet 1 tablet Orally every 12 hours Not-Taking/PRN Vistaril 25 MG Capsule 1-2 capsule as needed Orally every 8 hrs Medication List reviewed and reconciled with the patient * Allergies: N .K.D.A.no[Allergies Verified] Objective: * Vitals: T emp:97.1F, HR:101/min, BP: 143/99 mm Hg,Repeat:132/80mm Hg, HT: 61.75 in, WT:248lbs, BMI:45.72Index, RR:20/min, Oxygen sat %:95%, Ht-cm: 156.85 cm, Wt-k.49 kg. * Examination: G eneral Examination: GENERAL APPEARANCE: alert, well hydrated, in no distress.? ORAL CAVITY: m ucosa moist. SKIN: warm and dry, good turgor, no rashes, no suspicious lesions. HEART: S1, S2 normal, regular rate and rhythm. LUNGS: c lear to auscultation bilaterally, good air movement, no wheezes, rales, rhonchi. ABDOMEN: bowel sounds present, soft, nontender, nondistended. PERIPHERAL PULSES: normal, 2+ radial. DENTAL EXAM: Assessment: * Assessment: 1. E ncounter for immunization - Z23 2 . U rinary incontinence - R32 (Primary) 3 .?BMI 45.0-49.9, adult - Z68.42 Plan: * Treatment: * Immunizations: Non VFC Fluarix Quad (Route: Intramuscular) given by Carmel Gresham LPN on Left Deltoid (Encounter for immunization) * Procedure Codes: 9 0686 Non VFC Fluarix [id number] IMMUNIZATION ADMIN * Preventive Medicine: CARE MANAGEMENT: P ROVIDER CARE PLAN: Does this patient require care plan management? N o Individual care plan provided: Y es Take meds as prescribed Care plan updated : PCM Preventive/Chronic Due : [facility]: Due for PAP: Y es hysterectomy in the past Due for Mammogram: Y es paperwork given for patient to schedule mammogram Due for Flu Vaccination: Y es done in Jun 2023 Due for Oral Health Exam Y es performed in the office Abnormal BMI Follow Up Y es counseled Depression Screening Due Y es done Counseling: C are goal follow-up plan: Exercise Counseling Provided- Y es Nutrition/Dietary Counseling provided?Yes BMI management provided Y es Above Normal BMI Follow-up G iving encouragement to exercise Oral health education provided : Y es Date : * Follow Up: 6 months (Reason: f/u chronic conditions) * Billing Information: * Visit Code: 99478 OFFICEOUTPATIENT VISIT, EST. * Procedure Codes: 76031 Non VFC Fluarix Quad. 10821 IMMUNIZATION ADMIN. * Sign off status: Completed Visit Status: C HK (Check Out) true * Provider: OBIE Gomez Date: 07/03/2023 Generated for Jonnie koroma/Jose/Carlyitting on: 11/28/2024 12:50 AM BATTER OUT History and Physical Notes * HPI (History of Present Illness) Category Sub-Category Detail Notes Category Not es Constitutional Historian: Self Patient prese nts today for medication refills. States she sees psychiatrist for mental health medications, and she sees GUTTER INSTALLER for hormones. Flu Questionnaire Is the patient sick (with an illness other than a cold)? Fever greater than 100 degrees F in last 24 hours? Allergic to Chicken, eggs, feathers, tamara kiara or Thimerosal? List food and medication allergies: Patient ever had convulsions or neurolog ical problems? Has patient had reaction to influenza do se or hx of GBS? I understand the possible side effects o f influenza vaccine. Yes I consent to receiving the influenza vac cine. Yes or plan to become ? Depression Screening PHQ-2 (2015 Edition) Little interest or pleasure in doing things?: Not at all Feeling down, depressed, or hopeless?: N ot at all Total Score: 0 Examination Category Sub-Category Detail Notes Category Not es General Examination GENERAL APPEARANCE: alert, w ell hydrated, in no distress EARS: NOSE: THROAT: NECK/THYROID: HEART: S1, S2 normal, regul ar rate and rhythm LUNGS: clear to auscultatio n bilaterally, good air movement, no wheezes, rales, rhonchi ABDOMEN: bowel sounds present , soft, nontender, nondistended SKIN: warm and dry,good tu rgor,no rashes, no suspicious lesions PERIPHERAL PULSES: normal, 2+ radial PSYCH: ORAL CAVITY: mucosa moist DENTAL EXAM: Active untreated decay:: No Referral to dentist needed:: No Currently on medication that affects the mouth:: No
--- OUTSIDE RECORDS SUMMARY | 2024-11-28 00:51 | XMS_ITS | Clinical Summary ---
Author Organization [facility] Address [address] [place] [id number] Care Team Providers Care Reaming Press Operator Name Role Phone Unavailable Primary Care Provider Unavailabl e Social History Tobacco Use Types Packs/Day Years Used Date Smoking Tobacco: Never Assessed Comments Unknown Sex and Gender Information Value Date Recorded Sex Assigned at Not on file Legal Sex Female 9:21 PM CDT Gender Identity Not on file Sexual Orientation Not on file Plan of Treatment Health Maintenance Due Date Last Done Comments Mammogram 1981 Pap Smear 1981 MMR Vaccines (1 of 1 - Stand juan manuel series) 1982 DTaP,Tdap,and Td Vaccines (1 - Tdap) 1988 Varicella Vaccines (1 of 2 - 13+ 2-dose series) 1994 Hepatitis B Vaccines (1 of 3 - 19+ 3-dose series) 2000 COVID-19 Vaccine ( - 2023-2 5 season) 2024 Influenza Vaccine (#1) 2024 RSV Vaccines and 60 Years or Older (1 - 1-dose 75+ series) 2056 AMB Pneumococcal 0-64 yrs Aged Out No longer eligible based on patient's age to complete this topic HIB Vaccines Aged Out No longer eligi ble based on patient's age to complete this topic HPV Vaccines Aged Out No longer eligi ble based on patient's age to complete this topic Hepatitis A Vaccines Aged Out No long er eligible based on patient's age to complete this topic IPV Vaccines Aged Out No longer eligi ble based on patient's age to complete this topic Meningococcal ACWY Vaccine Aged Out N o longer eligible based on patient's age to complete this topic Meningococcal B Vaccine Aged Out No l onger eligible based on patient's age to complete this topic RSV Vaccines <20 Months Aged Out No l onger eligible based on patient's age to complete this topic
--- OUTSIDE RECORDS SUMMARY | 2024-11-28 00:51 | XMS_ITS ---
Author Organization [facility] Planning Address [address] [address] [address] [place] [address] Care Team Providers Care Farm Management Teacher Name Role Phone Sydney Martínez Primary Care Provider Allergies No Known Allergies REASON FOR VISIT PT presents to the clinic with Headache, cough Medications Medication SIG (Take, Route, Frequency, Duration) Notes Start Date End Date Status Vistaril 25 MG 1-2 capsule as neede d Orally every 8 hrs 06/18/2018 Not-Taking Invega 9 MG 1 tablet in the morn ing Orally Once a day 01/21/2019 Not-Taking Oseltamivir Phosphate 75 MG 1 capsule Orally every 12 hours for 5 days 06/05/2023 Not-Taking predniSONE 20 MG 1 tablet Orally ever y 12 hours for 5 days 05/21/2023 Not-Taking Ketorolac Tromethamine 60 MG/2ML 2ml Intramuscular once in office today for 1 days Not-Taking Valtrex 1 GM 1 tablet Orally Once a day Active Diclofenac Sodium 50 MG 1 tablet Orally every 8 hours as needed for 14 days 05/21/2023 Not-Taking Ibuprofen 800 MG 1 tablet with food o r milk as needed Orally every 8 hrs for 5 days Not-Takin g DULoxetine HCl 60 MG 1 capsule Orally On ce a day for 30 days Not-Taking Hydrocortisone Acetate 1 % 1 application - dispense 1 tube Externally every 12 hours for 14 days 06/02/2023 Not-Taking Progesterone 100 MG 1 capsule at bedtime Orally Once a day Active Topamax 25 MG 1 tablet Orally Suze y for 30 days Active Elmiron 100 MG 1 capsule on an empt y stomach Orally Three times a day Active Estradiol 1 MG 1 tablet Orally Once a day Active oxyBUTYnin Chloride ER 15 MG 1 tablet Orally twice daily Active busPIRone HCl 30 MG 1/2 tab Orally Twice a day for 30 days 08/20/2018 Active Cymbalta 60 MG 1 capsule Orally twi ce daily Active Abilify 30 MG 1/2 tab Orally Once a day Active Adderall 20 MG 1 tablet Orally Twic e a day Active Social History Tobacco Use: Social History Observation Description Date Details (start date - stop date) Never Smoker NA - NA Tobacco Use/Smoking Question Answer Notes Are you a nonsmoker Alcohol Screen (Audit-C) Question Answer Notes Did you have a drink containing alcohol in the p ast year? No Points 0 Interpretation Negative Tobacco use other than smoking: Question Answer Notes Are you an other tobacco user? No DAST Question Answer Notes Total Score: 0 Interpretation: No problems reported DAST-10 (2020 Edition) Question Answer Notes 1. [...] despite stating he is bad for her. Vital Signs Temperature 96.1 degrees Fahrenheit 09/17/20 23 Blood pressure systolic 125 mm Hg 09/17/20 Blood pressure diastolic 85 mm Hg 023 Heart Rate 89 /min 09/17/2023 Respiratory Rate 20 /min 09/17/2023 Height 61.75 in 09/17/2023 Weight 255 lbs 09/17/2023 BMI 47.01 kg/m2 09/17/2023 Oximetry 96 % 09/17/2023 Height-cm 156.85 cm 09/17/2023 Weight-kg 115.67 kg 09/17/2023 Encounters Encounter Location Date Provider Diagnosis [facility] [address] [place] [address] 09/17/2023 Sydney Martínez Upper respiratory infection J06.9 Assessments Encounter Date Diagnosis (ICD Code) Assessment Notes Treatment Notes Treatment Clinical Notes Section Notes 09/17/2023 Upper respiratory infection (ICD-10 - J06.9) You have an upper respiratory infection which is most likely viral at this time. An antibiotic will not help at this time. Viruses typically last 10-14 days. Push PO fluids Get plenty of rest You can take Tylenol and/or Ibuprofen for fevers, aches, pains You may also take Zyrtec (an antihistamine) and Flonase nasal spray (a steroid nasal spray) to help with your sinus problems and post nasal drainage which is contributing to your cough, sore throat, congestion, and ear pain. You may also take over the counter cough medications like Robitussin. Vicks vapor rub to chest may be helpful for cough. Honey is helpful for sore throat and cough. Salt water gargles will be helpful for sore throat as well as throat lozenges and/or Cephacol spray. You will need to change your toothbrush. Do not share drinks with others. Good hand hygiene to avoid spreading germs to other. Run cool mist humidifer in your home. Discussed plan of care with patient, and patient verbalized understanding. Follow up within 1 week if symptoms worsen or do not improve. Go to the ER immediately if having difficulty swallowing, difficulty breathing, chest pain, fevers above 103 you are having difficulty controlling with Tylenol and/or Ibuprofen, not taking food or fluids well, unable to keep food or fluids down, going more than 6 hours without urinating. 09/17/2023 Other Plan Of Treatment Treatment Notes Assessment Notes Upper respiratory infection You have an upper respiratory infection which is most likely viral at this time. An antibiotic will not help at this time. Viruses typically last 10-14 days. Push PO fluids Get plenty of rest You can take Tylenol and/or Ibuprofen for fevers, aches, pains You may also take Zyrtec (an antihistamine) and Flonase nasal spray (a steroid nasal spray) to help with your sinus problems and post nasal drainage which is contributing to your cough, sore throat, congestion, and ear pain. You may also take over the counter cough medications like Robitussin. Vicks vapor rub to chest may be helpful for cough. Honey is helpful for sore throat and cough. Salt water gargles will be helpful for sore throat as well as throat lozenges and/or Cephacol spray. You will need to change your toothbrush. Do not share drinks with others. Good hand hygiene to avoid spreading germs to other. Run cool mist humidifer in your home. Discussed plan of care with patient, and patient verbalized understanding. Follow up within 1 week if symptoms worsen or do not improve. Go to the ER immediately if having difficulty swallowing, difficulty breathing, chest pain, fevers above 103 you are having difficulty controlling with Tylenol and/or Ibuprofen, not taking food or fluids well, unable to keep food or fluids down, going more than 6 hours without urinating. Next Appt Details Follow Up: 1 week if needed, Reason: f/u URI symptoms Progress Notes * Michelle BRIGGS RDOB: 2 (42 yo F)Acc No.[id number]:09/17/2023 Patient: Yohannes Michelle TOMLINSON Provider: OBIE Pike :1980 A ge:42 Y S ex:Female Date:09/17/2023 Address:[address] [place], [place] [id number] Check Out:12:05 PM PHARMACEUTICAL LABORATORY TECHNICIAN Subjective: * Chief Complaints: * P T presents to the clinic with Headache, cough * HPI: C onstitutional: Historian: Yohannes zarate. Patient present stoday for cough, headache, congestion that started this morning. Having body aches as well. Denies fevers. * ROS: G eneral/Constitutional: Patient denies c hills, fatigue, fever, lightheadedness.?Patient complaining of b linda aches. O phthalmologic: Patient denies b lurred vision, eye pain, discharge, loss of vision. E NT: Patient denies d ecreased hearing, difficulty swallowing.?Patient complaining of e ar pain, sinus pain, sore throat, nasal congestion. ? R espiratory: Patient denies shortness of breath, wheezing. P atient complaining of c ough. D enies A sthma. C ardiovascular: Patient denies p alpitations, dizziness, chest pain. ? G astrointestinal: Patient denies a bdominal pain, constipation, diarrhea, nausea,, vomiting. S kin: Patient denies i tching, rash. * Medical History: * Surgical History: G allbladder 2013Tonsillectomy 3rd gradeHYSTERECTOMY([id number]) 09/2014 * Hospitalization/[facility] Diagno stic [facility]: [facility] 2002[facility]sterectomy at [facility] 09/2014[facility] for anxiety/depression 05/2018Gallbladder removed at [address] 05/24/2018 * Family History: F ather: alive, family history unknown . M other: alive, thyroid disease. M aternal Grand Mother: thyroid disease. S iblings: family history unknown . * Social History: P [facility] Comprehensive Health Assessment : D o you have any social/cultural characteristics? S ocial Characteristics: Y es H ighest level of education: S [employer] C oncerns with daily living situations: N one S upport from family/friends: Y bianca P articipation in community activities: Y es [...] Use/Smoking A re you a n onsmoker Tobacco use other than smoking A re you an other tobacco user? N o D AST Form: D AST-10 (2020 Edition) [...] nterpretation of Score: N o problems reported D rugs/Alcohol: A lcohol Screen (Audit-C) D id you have a drink containing alcohol in the past year? N o P oints 0 I nterpretation N egative Caffeine I ntake: m ore than 4 cups per day Tea DAST T otal Score: 0 I nterpretation: N o problems reported M iscellaneous: C affeine: 2-3 cups per day. School Name/Grade Level: Some college. Children: 2 children, 10y/o and 7y/o. Domestic violence: none. Exercise: twice a week. Housing: homeowner. Legal problems: none. Living with: 2 children, but spends most of the time at her mother's house. Marital status: divorce once. Natural support system: mother, co-workers. Occupation: Works full-time, [employer] motor coach chauffeur. Sexual abuse: none. S elf-Management: E r Visit/Hospitalization: No . Pap Testing: Place of last pap smear:[facility] 2018, Not Applicable, Patient had a hysterectomy. Patient Care Team/Self Referrals: No . B iological mother and adoptive father were [...] N .K.D.A.no[Allergies Verified] Objective: * Vitals: T emp:96.1F, HR:89/min, BP:125/85mm Hg, HT: 61.75 in, WT:255lbs, BMI:47.01Index, RR:20/min, Oxygen sat %:96%, Ht-cm: 156.85 cm, Wt-k.67 kg. * Examination: G eneral Examination: GENERAL APPEARANCE: i n no acute distress, well developed, well nourished. HEAD: n ormocephalic, atraumatic. EYES: p upils equal, round, reactive to light and accommodation, conjunctiva clear. EARS: B OTH EARS, tympanic membrane dull. NOSE: n jaelyn patent. ORAL CAVITY: m ucosa moist. THROAT: t onsils not enlarged, erythemic, no exudate, ? post-nasal discharge present. NECK/THYROID: n lexi supple, full range of motion, no cervical lymphadenopathy. SKIN: good turgor, warm and dry , no rashes. HEART: n o murmurs, regular rate and rhythm, S1, S2 normal.? LUNGS: c lear to auscultation bilaterally, no wheezes, rales, rhonchi, good air movement. ABDOMEN: n ormal, bowel sounds present, soft, nontender, nondistended, no guarding or rigidity. DENTAL EXAM: Assessment: * Assessment: 1. U pper respiratory infection - J06.9 (Primary) Plan: * Treatment: Value Reference Range S ARS-CoV+SARS-CoV-2 (COVID-19) Ag [Presence] Not Detected * I nfluenza A virus Ag [Presence] in Nasopharynx by Rapid immunoassay Negative * I nfluenza B virus Ag [Presence] in Nasopharynx by Rapid immunoassay Negative ?LAB: Rapid Strep (Ordered for 09/17/2023) Notes:You have an upper respiratory infection which is most likely viral at this time. An antibiotic willnot help at this time. Viruses typically last 10-14 days. Push PO fluids Get plenty of rest You can take Tylenol and/or Ibuprofen for fevers, aches, pains You may also take Zyrtec (an antihistamine) and Flonase nasal spray (a steroid nasal spray) to helpwith your sinus problems and post nasal drainage which is contributing to your cough, sore throat, congestion, and ear pain. You may also take over the counter cough medications like Robitussin. Vicks vapor rub to chest may be helpful for cough. Honey is helpful for sore throat and cough. Salt water gargles will be helpful for sore throat as well as throat lozenges and/or Cephacol spray. You will need to change your toothbrush. Do not share drinks with others. Good hand hygiene to avoid spreading germs to other. Run cool mist humidifer in your home. Discussed plan of care with patient, and patient verbalized understanding. Follow up within 1 week if symptoms worsen or do not improve.Go to the ER immediately if having difficulty swallowing, difficulty breathing, chest pain, fevers above 103 you are having difficulty controlling with Tylenol and/or Ibuprofen, not taking food or fluids well, unable to keep food or fluids down, going more than 6 hours without urinating.?? * Procedure Codes: * Preventive Medicine: CARE MANAGEMENT: P ROVIDER CARE PLAN: Does this patient require care plan management? N o Individual care plan provided: Y es Take meds as prescribed Care plan updated : [facility] Preventive/Chronic Due : [facility]: Due for PAP: Y es hysterectomy in [...] Y es Date : * Follow Up: 1 week if needed (Reason: f/u URI symptoms) * Billing Information: * Visit Code: [id number] OFFICEOUTPATIENT VISIT, EST. * Procedure Codes: * MACEUTICAL LABORATORY TECHNICIAN Sign off status: Completed Visit Status: C HK (Check Out) true * Provider: OBIE Pike Date: 11/18/2022 Generated for Jonnie koroma/Jose/Carlyitting on: 0 11/28/2024 12:50 AM PHARMACEUTICAL LABORATORY TECHNICIAN History and Physical Notes * HPI (History of Present Illness) Category Sub-Category Detail Notes Category Not es Constitutional Historian: Self Patient prese for cough, headache, congestion that started this morning. Having body aches as well. Denies fevers. Examination Category Sub-Category Detail Notes Category Not es General Examination GENERAL APPEARANCE: in no ac absentee-shawnee distress, well developed, well nourished HEAD: normocephalic, atrau matic EYES: pupils equal, round, reactive to light and accommodation, conjunctiva clear EARS: BOTH EARS, tympanic membrane dull NOSE: nares patent THROAT: tonsils not enlarged , erythemic, no exudate, post-nasal discharge present NECK/THYROID: neck supple, full ra nge of motion, no cervical lymphadenopathy HEART: no murmurs, regular rate and rhythm, S1, S2 normal LUNGS: clear to auscultatio n bilaterally, no wheezes, rales, rhonchi, good air movement ABDOMEN: normal, bowel sounds present, soft, nontender, nondistended, no guarding or rigidity SKIN: good turgor, warm an d dry , no rashes ORAL CAVITY: mucosa moist DENTAL EXAM: Active untreated decay:: No Referral to dentist needed:: No Currently on medication that affects the mouth:: No
--- OUTSIDE RECORDS SUMMARY | 2024-11-28 00:51 | XMS_ITS | Patient Health Summary ---
Author Organization [facility] Address [address] [place] [address] Care Team Providers Care Check Embosser Name Role Phone BertTateTelmabernice PEOPLES-SUKI Primary Care Provider [phone] Haley Valadez MD Unavailable [phone] Note from [facility],non-owned Affiliates and Associated Physician Practices is amultiple site organization consisting of ambulatory clinics and hospital sitesin [place], [place], [place] and [place]. This disclosure is being madepursuant to the Care Everywhere program and may not contain all information available regarding this patient. Last updated 18.[facility] Allergies * Noah Inhibitors(Cough) -Medium Criticality * Metronidazole(Nausea and/or Vomiting) Medications * Be aware that medications may not be up to date on this document. Alwaysverify current medications with the patient. * ValACYclovir HCl (VALTREX PO) 1 tablet * oxybutynin (DITROPAN) 5 MG tablet Take 1 (one) tablet by mouth 2 times daily * estradiol (ESTRACE) 1 MG tablet Take 1 (one) tablet by mouth once daily * DULoxetine (Cymbalta) 60 MG capsule 1 (one) capsule 2 times daily * ARIPiprazole (Abilify) 15 MG tablet(Started 06/28/2024) Take 1 (one) tablet by mouth once daily Reasons: Major Depressive Disorder 5 refills by 06/28/2025 * busPIRone (Buspar) 15 MG tablet(Started 06/28/2024) Take 1 (one) tablet by mouth 2 times daily Reasons: Anxiety Disorder 5 refills by 06/28/2025 * esomeprazole (NexIUM) 20 MG capsule(Started 06/25/2024) Take 1 (one) capsule by mouth 2 times daily * metFORMIN ER 24hr (Glucophage XR) 500 MG tablet(Started 03/31/2024) Take 1 (one) tablet by mouth once daily * metoprolol succinate XL 24hr (Toprol XL) 50 MG tablet(Started 06/02/2024) Take 1 (one) tablet by mouth once daily * Progesterone 100 MG capsule Take 1 (one) capsule by mouth at bedtime * cyanocobalamin (Vitamin B-12) injection(Started 08/10/2024) INJECT ONE ML INTRAMUSCULARLY every 30 DAYS Active Problems Problem Noted Date Diagnosed Date Sleep apnea-like behavior 09/17/2024 Dyspnea on exertion 04/07/2024 Dysfunctional uterine bleeding 08/06/2019 Vaginitis and vulvovaginitis 08/06/2019 Chronic interstitial cystitis 08/06/2019 Chronic maxillary sinusitis 08/06/2019 Cobalamin deficiency 08/06/2019 Dysuria 08/06/2019 Essential hypertension 08/06/2019 Fatigue 08/06/2019 Gastroesophageal reflux disease 08/06/2019 Genital herpes simplex 08/06/2019 Malaise and fatigue 08/06/2019 Migraine 08/06/2019 Multiple joint pain 08/06/2019 Backache 08/06/2019 Headache 08/06/2019 Neck pain 08/06/2019 Obesity 08/06/2019 Palpitations 08/06/2019 Paronychia of finger 08/06/2019 Postmenopausal state 08/06/2019 Premenstrual tension syndrome 08/06/2019 Retention of urine 08/06/2019 Rheumatoid factor positive 08/06/2019 Skin sensation disturbance 08/06/2019 Trichomonal vulvovaginitis 08/06/2019 Urethral abscess 08/06/2019 Urge incontinence of urine 08/06/2019 Urinary tract infectious disease 08/06/2019 Vitamin D deficiency 08/06/2019 Resolved Problems Problem Noted Date Diagnosed Date Resolved Date Sacroiliac joint pain 08/09/20242023 Attention deficit hyperactiv ity disorder (ADHD) 06/01/2024 09/07/2024 Tachycardia 04/06/2024 09/07/2024 High thyroid stimulating hormone (TSH) level 09/07/2024 Prediabetes 03/31/2024 09/07/2024 Acute upper respiratory infection 08/06/2019 08/20/2019 Anxiety 08/06/2019 02/20/2023 Apnea 08/06/2019 09/17/2024 Acute maxillary sinusitis 08/06/2019 Major depression, single episode 08/06/2019 02/20/2023 Mixed anxiety and depressive disorder 08/06/2019 02/20/2023 Mixed bipolar I disorder 08/06/201907/2022 Moderate recurrent major depression 08/06/2019 02/20/2023 Otitis media 08/06/2019 10/15/2024 Pharyngitis 08/06/2019 08/20/2019 Severe episode of recurrent major depressive disorder, without psychotic features 05/10/2019 Immunizations * INFLUENZA VACCINE, TRIV. (AFLURIA, FLUZONE TRIVALENT; 6MO+) (IIV3)(Given 07/31/2015) * DTP, HISTORIC VACCINE(Given 04/26/1987, 01/02/1984, 04/24/1982, 02/09/1982, 1981) * FLU VACCINE TRI IIV3 SPLIT IM (FLUVIRIN)(Given 06/15/2014, 06/14/2013, 07/20/2012, 06/20/2011) * INFLUENZA VACCINE, QUADR. (FLUZONE; FLULAVAL; FLUARIX; AFLURIA QUADRIVALENT; 6MO+), 0.5 ML (IIV4)(Given 07/09/2018) * INFLUENZA VACCINE, TRIV. (FLUZONE; FLULAVAL; FLUARIX; AFLURIA TRIVALENT; 6MO+), 0.5 ML (IIV3)(Given 07/29/2017, 06/27/2016, 07/30/2015) * MMR VACCINE(Given 05/09/1992, 02/06/1983) * MODERNA SARS-COV-2 COVID-19 VACCINE 0.25ML(Given 10/29/2021) * POLIO OPV(Given 04/26/1987, 01/02/1984, 04/24/1982, 02/09/1982, 1981) * TD (AGE 8-ADULT)(Given 08/04/1997) Social History Tobacco Use Types Packs/Day Years Used Date Smoking Tobacco: Never Smokeless Tobacco: Never Tobacco Cessation:Counseling Given: Not Answered Alcohol Use Standard Drinks/Week Comments No 0 (1 standard drink = 0.6 oz pur e alcohol) PHQ-2 Answer Date Recorded PHQ2 TOTAL SCORE 0 07/28/2022 Sex and Gender Information Value Date Recorded Sex Assigned at Not on file Gender Identity Not on file Sexual Orientation Not on file Last Filed Vital Signs Vital Sign Reading Time Taken Comments Blood Pressure 117/82 11/15/2024 5:01 PM BEHAVIORAL SCIENCE CHAIR Pulse 84 11/15/2024 5:15 PM BEHAVIORAL SCIENCE CHAIR Temperature 36.7 C (98 F) 11/15/2024 1:51 PM BEHAVIORAL SCIENCE CHAIR Respiratory Rate 17 11/15/2024 5:15 PM BEHAVIORAL SCIENCE CHAIR Oxygen Saturation 100% 11/15/2024 5:15 PM BEHAVIORAL SCIENCE CHAIR Inhaled Oxygen Concentration 100% 06/24/2018 1 :33 PM CDT Weight 122.5 kg (270 lb) 11/15/2024 1:51 PM BEHAVIORAL SCIENCE CHAIR Height 152.4 cm (5') 11/15/2024 1:51 PM BEHAVIORAL SCIENCE CHAIR Body Mass Index 52.73 11/15/2024 1:51 PM BEHAVIORAL SCIENCE CHAIR Procedures * TROPONIN-I HIGH SENSITIVE REFLEX 1HOUR(Performed 11/15/2024) * EKG 12-LEAD(Performed 11/15/2024) Performed for Chest pain, unspecified type * TROPONIN-I HIGH SENSITIVE BASELINE + 1HR(Performed 11/15/2024) * COMPREHENSIVE METABOLIC PANEL(Performed 11/15/2024) * CBC W AUTO DIFFERENTIAL(Performed 11/15/2024) * NM MYOCARD PERF REST STRESS(Performed 10/07/2024) Performed for Shortness of breath, Tachycardia * STRESS TEST(Performed 10/07/2024) Performed for Shortness of breath, Tachycardia * ECHO COMPLETE(Performed 10/07/2024) Performed for Shortness of breath, Tachycardia * HOLTER MONITOR(Performed 09/19/2024) Performed for Shortness of breath, Tachycardia * EKG 12-LEAD(Performed 09/10/2024) Performed for Shortness of breath, Dizziness, Tachycardia, Chronic hypertension * COMPREHENSIVE METABOLIC PANEL(Performed 02/19/2023) Performed for High risk medications (not anticoagulants) long-term use * CBC W AUTO DIFFERENTIAL(Performed 02/19/2023) Performed for High risk medications (not anticoagulants) long-term use * TSH(Performed 02/19/2023) Performed for High risk medications (not anticoagulants) long-term use * LIPID PROFILE(Performed 02/19/2023) Performed for High risk medications (not anticoagulants) long-term use * HEMOGLOBIN A1C(Performed 02/19/2023) Performed for High risk medications (not anticoagulants) long-term use * STREP A SCREEN - POINT OF CARE (AMB) SMGS(Performed 07/28/2022) Performed for Acute pharyngitis, unspecified etiology * SARS-COV-2 (COVID-19) IN HOUSE(Performed 07/06/2021) Performed for Exposure to SARS-associated coronavirus * SARS-COV-2 (COVID-19) PANEL (SOIL)(Performed 07/06/2021) Performed for Exposure to SARS-associated coronavirus * LIPID PROFILE(Performed 11/03/2020) Performed for Routine general medical examination at a health care facility * TSH(Performed 11/03/2020) Performed for Routine general medical examination at a health care facility * COMPREHENSIVE METABOLIC PANEL(Performed 11/03/2020) Performed for Routine general medical examination at a health care facility * CBC W AUTO DIFFERENTIAL(Performed 11/03/2020) Performed for Routine general medical examination at a health care facility * SARS-COV-2 (COVID-19) IN HOUSE(Performed 09/05/2020) Performed for Exposure to SARS-associated coronavirus * SARS-COV-2 (COVID-19) PANEL (SOIL)(Performed 09/05/2020) Performed for Exposure to SARS-associated coronavirus * SARS-COV-2 (COVID-19) IN HOUSE(Performed 06/08/2020) Performed for Exposure to SARS-associated coronavirus * CULTURE URINE(Performed 08/06/2019) Performed for Urinary frequency, Pelvic pain in female, Recurrent UTI * URINALYSIS - POCT (IP) BEAKER INTERFACE(Performed 08/06/2019) Performed for Urinary frequency * URINALYSIS - POCT (IP) NOTIFICATION(Performed 08/06/2019) Performed for Urinary frequency * FINE NEEDLE ASPIRATION THYROID (ILL)(Performed 06/23/2019) Performed for Thyroid nodule * HEMOGLOBIN A1C(Performed 05/12/2019) * LIPID PROFILE(Performed 05/12/2019) * ALCOHOL ETHYL BLOOD(Performed 05/09/2019) * SALICYLATE LEVEL BLOOD(Performed 05/09/2019) * ACETAMINOPHEN LEVEL(Performed 05/09/2019) * TSH REFLEX FREE T4(Performed 05/09/2019) * COMPREHENSIVE METABOLIC PANEL(Performed 05/09/2019) * CBC W AUTO DIFFERENTIAL(Performed 05/09/2019) * DRUG ABUSE URINE SCREEN 10(Performed 05/09/2019) * URINALYSIS REFLEX MICROSCOPIC REFLEX CULTURE(Performed 05/09/2019) * HCG URINE QUALITATIVE(Performed 05/09/2019) * T4 FREE(Performed 05/05/2019) Performed for Thyrotoxicosis w/o crisis * T3 FREE(Performed 05/05/2019) Performed for Thyrotoxicosis w/o crisis * TSH(Performed 05/05/2019) Performed for Thyrotoxicosis w/o crisis * THYROID STIMULATING IMMUNOGLOBULIN (TSI)(Performed 02/09/2019) Performed for Thyrotoxicosis w/o crisis * T3 FREE(Performed 02/09/2019) Performed for Thyrotoxicosis w/o crisis * T4 FREE(Performed 02/09/2019) Performed for Thyrotoxicosis w/o crisis * TSH(Performed 02/09/2019) Performed for Thyrotoxicosis w/o crisis * CT ABDOMEN PELVIS WWO CONTRAST(Performed 06/24/2018) Performed for Abdominal pain, generalized * HCG URINE QUALITATIVE - POCT (IP) BEAKER - ILL(Performed 06/24/2018) * URINALYSIS REFLEX MICROSCOPIC REFLEX CULTURE(Performed 06/24/2018) * LIPASE BLOOD(Performed 06/24/2018) * COMPREHENSIVE METABOLIC PANEL(Performed 06/24/2018) * CBC W AUTO DIFFERENTIAL(Performed 06/24/2018) * TROPONIN I(Performed 04/23/2018) * EKG 12-LEAD(Performed 04/23/2018) Performed for Other chest pain, SOB (shortness of breath), Palpitations * TSH(Performed 04/23/2018) * COMPREHENSIVE METABOLIC PANEL(Performed 04/23/2018) * D-DIMER(Performed 04/23/2018) * CBC W AUTO DIFFERENTIAL(Performed 04/23/2018) * TROPONIN I(Performed 04/23/2018) * XR CHEST 2VW(Performed 04/23/2018) Performed for Other chest pain, SOB (shortness of breath), Palpitations * DRUG ABUSE URINE SCREEN 10(Performed 04/23/2018) * URINALYSIS REFLEX MICROSCOPIC REFLEX CULTURE(Performed 04/23/2018) * EKG 12-LEAD(Performed 03/25/2017) Performed for Acute gastritis without hemorrhage, unspecified gastritis type * URINALYSIS REFLEX MICROSCOPIC REFLEX CULTURE(Performed 03/25/2017) * TROPONIN I(Performed 03/25/2017) * AMYLASE BLOOD(Performed 03/25/2017) * LIPASE BLOOD(Performed 03/25/2017) * COMPREHENSIVE METABOLIC PANEL(Performed 03/25/2017) * CBC W AUTO DIFFERENTIAL(Performed 03/25/2017) * COMPREHENSIVE METABOLIC PANEL(Performed 08/10/2015) Performed for Headache(784.0), Viral syndrome * CBC W AUTO DIFFERENTIAL(Performed 08/10/2015) Performed for Headache(784.0), Viral syndrome * ACETAMINOPHEN LEVEL(Performed 05/01/2015) * TSH(Performed 05/01/2015) * SALICYLATE LEVEL BLOOD(Performed 05/01/2015) * ALCOHOL ETHYL BLOOD(Performed 05/01/2015) * COMPREHENSIVE METABOLIC PANEL(Performed 05/01/2015) * CBC W AUTO DIFFERENTIAL(Performed 05/01/2015) * TROPONIN I(Performed 05/01/2015) * XR CHEST 2VW(Performed 05/01/2015) Performed for Acute chest pain * DRUG ABUSE URINE SCREEN 10(Performed 05/01/2015) * URINALYSIS REFLEX TO MICROSCOPIC NO CULTURE(Performed 05/01/2015) * EKG 12-LEAD(Performed 05/01/2015) Performed for Acute chest pain * CARDIAC RHYTHM STRIP ORDER(Performed 09/27/2014) * COMPREHENSIVE METABOLIC PANEL(Performed 09/20/2014) Performed for Endometriosis * CBC W AUTO DIFFERENTIAL(Performed 09/20/2014) Performed for Endometriosis * GROSS + MICRO EXAM (ILL)(Performed 09/19/2014) * CYSTOSCOPY (FLEXIBLE/RIGID)(Performed 09/19/2014) Performed for Endometriosis, Chronic interstitial cystitis * ROBOTIC ASSISTED HYSTERECTOMY TOTAL(Performed 09/19/2014) Performed for Endometriosis, Chronic interstitial cystitis * TYPE + SCREEN PANEL(Performed 09/13/2014) Performed for Preoperative examination, unspecified * HCG BLOOD QUALITATIVE(Performed 09/13/2014) Performed for Preoperative examination, unspecified * COMPREHENSIVE METABOLIC PANEL(Performed 09/13/2014) Performed for Preoperative examination, unspecified * CBC W AUTO DIFFERENTIAL(Performed 09/13/2014) Performed for Preoperative examination, unspecified * GROSS + MICRO EXAM(Performed 05/11/2009) * GROSS + MICRO EXAM(Performed 10/14/2007) * GROSS + MICRO EXAM(Performed 10/09/2006) * GROSS + MICRO EXAM(Performed 08/23/2005) * GROSS + MICRO EXAM(Performed 06/05/2005) * GROSS + MICRO EXAM(Performed 07/04/2004) * GROSS + MICRO EXAM(Performed 10/14/2002) * GROSS + MICRO EXAM(Performed 06/09/2001) Results * TROPONIN-I HIGH SENSITIVE REFLEX 1HOUR (11/15/2024 4:45 PM BEHAVIORAL SCIENCE CHAIR) Pathologist [facility] Troponin I High Sensitive <3 <=14 ng/L 11/15/2024 5:20 PM BEHAVIORAL SCIENCE CHAIR [facility] Delta Troponin I HS 11/15/2024 5:20 PM BEHAVIORAL SCIENCE CHAIR [facility] Comment:Result exceeds linea rity range. A delta value is unable to be calculated. Blood BLOOD SPECIMEN / Unknown Venipuncture / Unknown 11/15/2024 4:45 PM BEHAVIORAL SCIENCE CHAIR 11/15/2024 4:50 PM BEHAVIORAL SCIENCE CHAIR Nesha AGUERO LAB - CERTIFICATION AND SELECTION SPECIALIST RY ORDERABLES [facility] [address] * EKG 12-LEAD (11/15/2024 3:46 PM BEHAVIORAL SCIENCE CHAIR) Only the most recent of5 resultswithin the time period is included. Pathologist [facility] Ventricular Rate 89 BPM [facility] Atrial Rate 89 BPM [facility] P-R Interval 156 ms [facility] QRS Duration ms 80 ms [facility] Q-T Interval ms 378 ms [facility] QTC Calculation (Bezet) 459 ms [facility] Calculated P Mercer 42 degrees [facility] Calculated R Mercer 32 degrees [facility] Calculated T Mercer 29 degrees [facility] Interpretation EKG Normal sinus rhythm Normal ECG When compared with ECG of 23-APR-2018 22:07, No significant change was found Confirmed by MD EMETERIO, GWEN ([id number]) on 11/18/2024 3:55:41 PM [facility] 11/15/2024 3:46 PM BEHAVIORAL SCIENCE CHAIR 11/18/2024 3:55 PM BEHAVIORAL SCIENCE CHAIR Nesha AGUERO ECG ORDERABLE S [facility] * TROPONIN-I HIGH SENSITIVE BASELINE + 1HR (11/15/2024 3:38 PM BEHAVIORAL SCIENCE CHAIR) [facility] Troponin I High Sensitive <3 <=14 ng/L 11/15/2024 4:08 PM BEHAVIORAL SCIENCE CHAIR [facility] Blood BLOOD SPECIMEN / Unknown Venipuncture / Unknown 11/15/2024 3:38 PM BEHAVIORAL SCIENCE CHAIR 11/15/2024 3:43 PM BEHAVIORAL SCIENCE CHAIR Nesha Crump APRN-SUKI LAB - CERTIFICATION AND SELECTION SPECIALIST RY ORDERABLES [facility] [address] * (ABNORMAL) CBC W AUTO DIFFERENTIAL (11/15/2024 3:38 PM BEHAVIORAL SCIENCE CHAIR) Only the most recent of11 resultswithin the time period is included. [facility] WBC 8.0 4.0 - 10.7 x10E9/L 11/15/2024 3:48 PM BEHAVIORAL SCIENCE CHAIR [facility] RBC Count 4.75 3.90 - 5.20 x10E12/L 11/15/2024 3:48 PM BEHAVIORAL SCIENCE CHAIR [facility] Hemoglobin 11.3(L) 11.9 - 15.8 g/dL 11/15/2024 3:48 PM BEHAVIORAL SCIENCE CHAIR [facility] Hematocrit 36.7 34.8 - 46.1 % 11/15/2024 3:48 PM BEHAVIORAL SCIENCE CHAIR [facility] MCV 77.3(L) 80.0 - 98.0 fL 11/15/2024 3:48 PM BEHAVIORAL SCIENCE CHAIR [facility] MCH 23.8(L) 26.7 - 33.6 pg 11/15/2024 3:48 PM BEHAVIORAL SCIENCE CHAIR [facility] MCHC 30.8(L) 31.7 - 36.3 g/dL 11/15/2024 3:48 PM BEHAVIORAL SCIENCE CHAIR [facility] RDW-CV 15.7(H) 11.3 - 14.8 % 11/15/2024 3:48 PM BEHAVIORAL SCIENCE CHAIR [facility] Platelet Count 281 150 - 420 x10E9/L 11/15/2024 3:48 PM BEHAVIORAL SCIENCE CHAIR [facility] MPV 9.7 7.8 - 11.4 fL 11/15/2024 3:48 PM BEHAVIORAL SCIENCE CHAIR [facility] Neutrophil % 61.2 41.0 - 74.0 % 11/15/2024 3:48 PM [facility] Lymphocyte % 30.5 17.0 - 47.0 % 11/15/2024 3:48 PM [facility] Monocyte % 6.0 3.0 - 11.0 % 11/15/2024 3:48 PM [facility] Eosinophil % 1.5 0.0 - 7.0 % 11/15/2024 3:48 PM [facility] Basophil % 0.4 0.0 - 1.6 % 11/15/2024 3:48 PM [facility] Immature Granulocytes % 0.4 0.0 - 1.0 % 11/15/2024 3:48 PM [facility] Neutrophil Absolute 4.91 1.60 - 7.50 x10E9/L 11/15/2024 3:48 PM [facility] Lymphocyte Absolute 2.45 1.00 - 4.40 x10E9/L 11/15/2024 3:48 PM [facility] Monocyte Absolute 0.48 0.15 - 1.00 x10E9/L 11/15/2024 3:48 PM [facility] Eosinophil Absolute 0.12 0.00 - 0.60 x10E9/L 11/15/2024 3:48 PM [facility] Basophil Absolute 0.03 0.00 - 0.13 x10E9/L 11/15/2024 3:48 PM [facility] Blood BLOOD SPECIMEN / Unknown Venipuncture / Unknown 11/15/2024 3:38 PM BEHAVIORAL SCIENCE CHAIR 11/15/2024 3:43 PM BEHAVIORAL SCIENCE CHAIR Nesha Crump CHEMICAL TANK WORKER-SURVEILLANCE INVESTIGATOR LAB - HEMATOL OGY ORDERABLES [facility] [address] [place], [place] [address] * (ABNORMAL) COMPREHENSIVE METABOLIC PANEL (11/15/2024 3:38 PM BEHAVIORAL SCIENCE CHAIR) Only the most recent of11 resultswithin the time period is included. [facility] Glucose 98 70 - 125 mg/dL 11/15/2024 4:08 PM [facility] Sodium 140 136 - 145 mmol/L 11/15/2024 4:08 PM [facility] Potassium 4.0 3.4 - 5.1 mmol/L 11/15/2024 4:08 PM [facility] Chloride 106 98 - 107 mmol/L 11/15/2024 4:08 PM [facility] CO2 27 22 - 29 mmol/L 11/15/2024 4:08 PM [facility] Calcium 9.88 8.4 - 10.2 mg/dL 11/15/2024 4:08 PM [facility] Anion Gap 7 6 - 16 mmol/L 11/15/2024 4:08 PM [facility] BUN 8.1(L) 9.8 - 20.1 mg/dL 11/15/2024 4:08 PM [facility] Creatinine 0.96 0.57 - 1.11 mg/dL 11/15/2024 4:08 PM [facility] Alkaline Phosphatase 111 40 - 150 U/L 11/15/2024 4:08 PM [facility] ALT 11 <=55 U/L 11/15/2024 4:08 PM [facility] AST 14 5 - 34 U/L 11/15/2024 4:08 PM [facility] Protein Total 7.2 6.4 - 8.3 gm/dL 11/15/2024 4:08 PM [facility] Albumin 3.6 3.4 - 4.8 gm/dL 11/15/2024 4:08 PM [facility] Globulin Total 3.6 2.6 - 4.0 gm/dL 11/15/2024 4:08 PM [facility] Albumin/Globulin Ratio 1.0 0.9 - 1.6 11/15/2024 4:08 PM [facility] Bilirubin Total 0.2 0.2 - 1.2 mg/dL 11/15/2024 4:08 PM [facility] eGFR 75(L) >90 mL/min/1.7 3m2 11/15/2024 4:08 PM [facility] Comment:The GFR result was c alculated using the updated CKD-EPI Creatinine Equation (2020). Blood BLOOD SPECIMEN / Unknown Venipuncture / Unknown 11/15/2024 3:38 PM BEHAVIORAL SCIENCE CHAIR 11/15/2024 3:43 PM BEHAVIORAL SCIENCE CHAIR Nesha Crump RICHELLE-SURVEILLANCE INVESTIGATOR LAB - CERTIFICATION AND SELECTION SPECIALIST RY ORDERABLES [facility] [address] [place] [address], [facility] * NM MYOCARD PERF REST STRESS (10/07/2024 12:29 PM BEHAVIORAL SCIENCE CHAIR) Anatomical Region Laterality Modality Chest Nuclear Medicine 10/07/2024 1:02 PM BEHAVIORAL SCIENCE CHAIR Impressions 2024 6:09 AM BEHAVIORAL SCIENCE CHAIR IMPRESSION: Normal myocardial perfusion scan. > Interpreting Provider: Marti Nava MD on 2024 6:09 AM Narrative 2024 6:09 AM BEHAVIORAL SCIENCE CHAIR PROCEDURE: NM MYOCARD PERF REST STRESS, DATE/TIME OF EXAM: 10/07/2024 12:29 PM, LOCATION [facility] INDICATION: R06.02: Shortness of breath R00.0: Tachycardia, unspecified ADDITIONAL CLINICAL INFORMATION: Ordering Provider Reason For Exam: Technologist Note: Additional: COMPARISON: None. RADIOPHARMACEUTICAL: Tc 99m Sestamibi 33.32 mCi administered at stress. Technetium 99m Sestamibi 9.85 mCi IV administered at rest. FINDINGS: Image quality is excellent without significant motion or adjacent bowel activity. There are no stress induced perfusion defects. There are no fixed perfusion defects. The left ventricular ejection fraction is normal at 71%. There are no regional wall motion abnormalities. Procedure Note Marti Nava MD - 2024 PROCEDURE: NM MYOCARD PERF REST STRESS, DATE/TIME OF EXAM: 2:29 PM, LOCATION [facility] INDICATION: R06.02: Shortness of breath R00.0: Tachycardia, unspecified ADDITIONAL CLINICAL INFORMATION: Ordering Provider Reason For Exam: Technologist Note: Additional: COMPARISON: None. RADIOPHARMACEUTICAL: Tc 99m Sestamibi 33.32 mCi administered at stress. Technetium 99m Sestamibi 9.85 mCi IV administered at rest. FINDINGS: Image quality is excellent without significant motion or adjacent bowel activity. There are no stress induced perfusion defects. There are no fixed perfusion defects. The left ventricular ejection fraction is normal at 71%. There are no regional wall motion abnormalities. IMPRESSION: Normal myocardial perfusion scan. > Interpreting Provider: Marti Nava MD on 2024 6:09 AM Gwen Mckeon MD NM ORDERABLES * STRESS TEST Treadmill (10/07/2024 11:48 AM BEHAVIORAL SCIENCE CHAIR) Predicted METS 9.2 METS SSM C V FUJI PACS Target HR 151 bpm SSM CV FUJ I PACS Max Age Predicted HR 178 bpm [facility] CV FUJI PACS ST Depression (mm) 0 mm S[facility] CV FUJI PACS Recovery ST Depression (mm) 0 mm SSM CV FUJI PACS Baseline HR 94 bpm SSM CV F UJI PACS Stress peak HR 118 bpm SSM C V FUJI PACS Max HR Percent 66 % SSM C V FUJI PACS Baseline BP 146/91 mmHg SSM CV F UJI PACS Post peak BP 172/111 mmHg SSM CV FUJI PACS Target HR Percent 78 % SSM CV FUJI PACS Anatomical Region Laterality Modality Ultrasound Narrative 2024 1:03 PM BEHAVIORAL SCIENCE CHAIR Stress: A pharmacological stress test was performed using regadenoson (0.4 mg). The patient reported nausea during the stress test. ECG: The ECG was negative for ischemia. Nuclear images reported under separate cover. No CP or pressure Stress Findings A pharmacological stress test was performed using regadenoson (0.4 mg). The patient reported nausea during the stress test. The patient reached the end of the protocol. A peak heart rate of 118 bpm (66% of max predicted heart rate) was achieved. Blood pressure demonstrated a hypertensive response and heart rate demonstrated a normal response to stress. The patient's resting blood pressure was 146/91 mmHg. The patient's peak stress blood pressure was 172/111 mmHg. ECG Resting ECG: Normal. Normal sinus rhythm. Stress ECG: No clinically relevant ST-segment deviation. Exhibits no arrhythmias. Recovery ECG: No clinically relevant ST-segment deviation. Exhibits no arrhythmias. The ECG was negative for ischemia. Nuclear images reported under separate cover. Gwen Mckeon MD CARDIAC SERVICES CUP ID * ECHO COMPLETE (10/07/2024 10:10 AM BEHAVIORAL SCIENCE CHAIR) LV EDV A2C 100 ml SSM CV FU JI PACS LV EDV A4C 82.2 ml SSM CV FU JI PACS LV ESV A2C 38.9 ml SSM CV FU JI PACS LV ESV A4C 29.3 ml SSM CV FU JI PACS IVSd 2D 0.8 cm SSM CV FUJ I PACS LVIDd 3.8 cm SSM CV FUJ I PACS LVIDs 2.8 cm SSM CV FUJ I PACS LVOT diam 2 cm SSM CV FUJ I PACS LVOT pk adam 111 cm/s SSM CV F UJI PACS LVPWd 0.8 cm SSM CV FUJ I PACS MV E' lateral adam 9.03 cm/s SSM CV FUJI PACS LV A2C EF 61.1 % SSM CV FUJ I PACS LV A4C EF 64.355 % SSM CV FUJ I PACS LV biplane EF 62.641 % SSM CV FUJI PACS LA vol BP 41.4 ml SSM CV FUJ I PACS LA size 2.6 cm SSM CV FUJ I PACS LA vol index 0.019 l/m SSM CV FUJI PACS AV pk adam 132 cm/s SSM CV FUJ I PACS Ascending aorta 2.9 cm SSM CV FUJI PACS IVC Diam Expiration 1.9 cm SSM CV FUJI PACS MV A pk adam 84 cm/s SSM CV F UJI PACS MV E pk adam 89.5 cm/s SSM CV F UJI PACS TAPSE 2.56 cm SSM CV FUJ I PACS TR pk adam 248 cm/s SSM CV FUJ I PACS Myocardial strain charge 2 unitless SSM CV FUJI [facility] Laterality Modality Ultrasound 10/07/2024 9:44 AM BEHAVIORAL SCIENCE CHAIR Narrative 10/20/2024 9:50 AM BEHAVIORAL SCIENCE CHAIR Summary * Left ventricular systolic function is normal with an estimated ejection fraction of 55-60% by visual estimate. * Right ventricle is normal in size with normal systolic function. * Aortic valve is not well visualized and possibly trileaflet with no stenosis, and no regurgitation. * Mitral valve is normal, with no stenosis, and trace regurgitation. Patient Info Name: Michelle Briggs Age: 43 years : 1980 Gender: Female Ht: 61 in Wt: 226 lb BSA: 2.16 m2 HR: 61 bpm BP: 140 / 79 mmHg Exam Date: 10/07/2024 9:44 AM Patient Status: O/P Study Site: [facility] Primary Location: [facility] EStudy Info Exam Type: ECHO COMPLETE Indications R06.02 - Shortness of breath R00.0 - Tachycardia Procedure(s) * A complete 2D, color Doppler, spectral Doppler, and M-Mode transthoracic echocardiogram was performed. Staff Referring Physician: Gwen Mckeon Ordering Provider: Gwen Mckeon Attending Physician: Gwen Mckeon Professional Development Director: Lilia Camacho [facility] Left Ventricle Left ventricle is normal in size, with normal systolic function, wall motion is normal, and diastolic function is normal. There is no increased left ventricular wall thickness. Left ventricular systolic function is normal with an estimated ejection fraction of 55-60% by visual estimate. Right Ventricle The right ventricle is normal in size. Right ventricular systolic function is normal. Left Atrium The left atrium is normal in size with a left atrial volume index of 19 ml/m2 by BP MOD. Right Atrium The right atrium is normal in size. Atrial Septum Interatrial septum not well visualized. Aortic Valve Aortic valve is not well visualized and possibly trileaflet with no stenosis, and no regurgitation. Pulmonic Valve The pulmonic valve is not well visualized. Mitral Valve Mitral valve is normal, with no stenosis, and trace regurgitation. Tricuspid Valve The pulmonary artery systolic pressure is normal, 33 mmHg. Tricuspid valve is not well visualized, with no stenosis, and trace regurgitation. Inferior Vena Cava The inferior vena cava is normal in size (< 2.1 cm). There is < 50% collapse of the IVC upon inspiration with an estimated right atrial pressure of 8 mmHg. Pulmonary Veins Pulmonary veins are not well visualized. Pericardium/Pleural There is no pericardial effusion. Aorta The aortic root at the sinus of Valsalva is normal in size. The ascending aorta is normal in size. Measurements Left Ventricular Outflow Tract Name Value Normal LVOT 2D LVOT Diameter 2.0 cm LVOT Area 3.1 cm2 LVOT Doppler LVOT Peak Velocity 1.1 m/s LVOT Peak Gradient 5 mmHg Mitral Valve Name Value Normal MV Doppler MV PHT 56 ms MV Area (PHT) 3.93 cm2 4.00-5.00 MV Diastolic Function MV E Peak Velocity 0.9 m/sec MV A Peak Velocity 0.8 m/sec MV E/A 1.1 MV Decel Time (PW) 190 ms MV Annular TDI MV Septal e' Velocity 8 cm/s >=8 MV E/e' (Septal) 11 <=8 MV Lateral e' Velocity 9 cm/s >=10 MV E/e' (Lateral) 10 <=8 MV e' Average 9 cm/s MV E/e' (Average) 10 Tricuspid Valve Name Value Normal TV Regurgitation Doppler TR Peak Velocity 2.5 m/s TR Peak Gradient 25 mmHg Estimated PAP/RSVP RA Pressure 8 mmHg <=5 PA Systolic Pressure 33 mmHg <35 RV Systolic Pressure 33 mmHg <36 Aorta Name Value Normal Ascending Aorta Ao Root Diameter (2D) 2.6 cm Ao Root Diam Index (2D) 1.2 cm/m2 Asc Ao Diameter 2.9 cm 1.9-3.5 Asc Ao Diameter Index 1.3 cm/m2 1.0-2.2 Venous Name Value Normal IVC/SVC IVC Diameter 1.9 cm <=2.1 Aortic Valve Name Value Normal AV Doppler AV Peak Velocity 1.32 m/s AV Peak Gradient 7 mmHg AV Area (Cont Eq Adam) 2.64 cm2 AV DI (Adam) 0.84 AV Regurgitation 2D LVOT Area 3.14 cm2 Ventricles Name Value Normal LV Dimensions 2D/MM IVS Diastolic Thickness (2D) 0.8 cm 0.6-0.9 LVID Diastole (2D) 3.8 cm 3.8-5.2 LVPW Diastolic Thickness (2D) 0.8 cm 0.6-0.9 LVID Systole (2D) 2.8 cm 2.2-3.5 LV Mass (2D Cubed) 86 g 67-162 LV Mass Index (2D Cubed) 40 g/m2 43-95 Relative Wall Thickness (2D) 0.42 <=0.42 LV Fractional Shortening/Ejection Fraction 2D/MM LV Fractional Shortening (2D) 24 % 27-45 LV EF (2D Teicholz) 52 % 54-74 LV Diastolic Volume (4C MOD) 82 ml LV EF (4C MOD) 64 % LV Diastolic Volume (2C MOD) 100 ml LV EF (2C MOD) 61 % LV Diastolic Volume (BP MOD) 98 ml 46-106 LV Diastolic Volume Index (BP MOD) 45 ml/m2 29-61 LV Systolic Volume (BP MOD) 37 ml 14-42 LV Systolic Volume Index (BP MOD) 17 ml/m2 8-24 LV EF (BP MOD) 63 % 54-74 LV Diastolic Length (4C) 7.6 cm LV Systolic Length (4C) 6.2 cm LV Stroke Volume (4C MOD) 53 ml RV Dimensions 2D/MM TAPSE 2.6 cm >=1.7 Atria Name Value Normal LA Dimensions LA Dimension (2D) 2.6 cm 2.7-3.8 LA Dimen Index (2D) 1.2 cm/m2 LA Volume (BP MOD) 41 ml LA Volume Index (BP MOD) 19 ml/m2 16-34 Report Signatures Finalized by Gwen Mckeon on 10/20/2024 09:50 AM Procedure Note Gwen Mckeon MD - 10/20/2024 Summary * Left ventricular systolic function is normal with an estimatedejection fraction of 55-60% by visual estimate. * Right ventricle is normal in size with normal systolic function. * Aortic valve is not well visualized and possibly trileaflet with no stenosis, and no regurgitation. * Mitral valve is normal, with no stenosis, and trace regurgitation. Patient Info Name: Michelle Briggs Age: 43 years : 1980 Gender: Female Ht: 61 in Wt: 226 lb BSA: 2.16 m2 HR: 61 bpm BP: 140 / 79 mmHg Exam Date: 10/07/2024 9:44 AM Patient Status: O/P Study Site: [facility] Primary Location: [facility] EStudy Info Exam Type: ECHO COMPLETE Indications R06.02 - Shortness of breath R00.0 - Tachycardia Procedure(s) * A complete 2D, color Doppler, spectral Doppler, and M-Modetransthoracic echocardiogram was performed. Staff Referring Physician: Gwen Mckeon Ordering Provider: Gwen Mckeon Attending Physician: Gwen Mckeon Professional Development Director: Lilia Camacho [facility] Left Ventricle Left ventricle is normal in size, with normal systolic function, wallmotion is normal, and diastolic function is normal. There is no increased left ventricular wall thickness. Left ventricular systolic function is normalwith an estimated ejection fraction of 55-60% by visual estimate. Right Ventricle The right ventricle is normal in size. Right ventricular systolicfunction is normal. Left Atrium The left atrium is normal in size with a left atrial volume index of19 ml/m2 by BP MOD. Right Atrium The right atrium is normal in size. Atrial Septum Interatrial septum not well visualized. Aortic Valve Aortic valve is not well visualized and possibly trileaflet with no stenosis, and no regurgitation. Pulmonic Valve The pulmonic valve is not well visualized. Mitral Valve Mitral valve is normal, with no stenosis, and trace regurgitation. Tricuspid Valve The pulmonary artery systolic pressure is normal, 33 mmHg. Tricuspidvalve is not well visualized, with no stenosis, and trace regurgitation. Inferior Vena Cava The inferior vena cava is normal in size (< 2.1 cm). There is < 50%collapse of the IVC upon inspiration with an estimated right atrial pressure of 8mmHg. Pulmonary Veins Pulmonary veins are not well visualized. Pericardium/Pleural There is no pericardial effusion. Aorta The aortic root at the sinus of Valsalva is normal in size. Theascending aorta is normal in size. Measurements Left Ventricular Outflow Tract Name Value Normal LVOT 2D LVOT Diameter 2.0 cm LVOT Area 3.1 cm2 LVOT Doppler LVOT Peak Velocity 1.1 m/s LVOT Peak Gradient 5 mmHg Mitral Valve Name Value Normal MV Doppler MV PHT 56 ms MV Area (PHT) 3.93 cm2 4.00-5.00 MV Diastolic Function MV E Peak Velocity 0.9 m/sec MV A Peak Velocity 0.8 m/sec MV E/A 1.1 MV Decel Time (PW) 190 ms MV Annular TDI MV Septal e' Velocity 8 cm/s >=8 MV E/e' (Septal) 11 <=8 MV Lateral e' Velocity 9 cm/s >=10 MV E/e' (Lateral) 10 <=8 MV e' Average 9 cm/s MV E/e' (Average) 10 Tricuspid Valve Name Value Normal TV Regurgitation Doppler TR Peak Velocity 2.5 m/s TR Peak Gradient 25 mmHg Estimated PAP/RSVP RA Pressure 8 mmHg <=5 PA Systolic Pressure 33 mmHg <35 RV Systolic Pressure 33 mmHg <36 Aorta Name Value Normal Ascending Aorta Ao Root Diameter (2D) 2.6 cm Ao Root Diam Index (2D) 1.2 cm/m2 Asc Ao Diameter 2.9 cm 1.9-3.5 Asc Ao Diameter Index 1.3 cm/m2 1.0-2.2 Venous Name Value Normal IVC/SVC IVC Diameter 1.9 cm <=2.1 Aortic Valve Name Value Normal AV Doppler AV Peak Velocity 1.32 m/s AV Peak Gradient 7 mmHg AV Area (Cont Eq Adam) 2.64 cm2 AV DI (Adam) 0.84 AV Regurgitation 2D LVOT Area 3.14 cm2 Ventricles Name Value Normal LV Dimensions 2D/MM IVS Diastolic Thickness (2D) 0.8 cm 0.6-0.9 LVID Diastole (2D) 3.8 cm 3.8-5.2 LVPW Diastolic Thickness (2D) 0.8 cm 0.6-0.9 LVID Systole (2D) 2.8 cm 2.2-3.5 LV Mass (2D Cubed) 86 g 67-162 LV Mass Index (2D Cubed) 40 g/m2 43-95 Relative Wall Thickness (2D) 0.42 <=0.42 LV Fractional Shortening/Ejection Fraction 2D/MM LV Fractional Shortening (2D) 24 % 27-45 LV EF (2D Teichlona) 52 % 54-74 LV Diastolic Volume (4C MOD) 82 ml LV EF (4C MOD) 64 % LV Diastolic Volume (2C MOD) 100 ml LV EF (2C MOD) 61 % LV Diastolic Volume (BP MOD) 98 ml 46-106 LV Diastolic Volume Index (BP MOD) 45 ml/m2 29-61 LV Systolic Volume (BP MOD) 37 ml 14-42 LV Systolic Volume Index (BP MOD) 17 ml/m2 8-24 LV EF (BP MOD) 63 % 54-74 LV Diastolic Length (4C) 7.6 cm LV Systolic Length (4C) 6.2 cm LV Stroke Volume (4C MOD) 53 ml RV Dimensions 2D/MM TAPSE 2.6 cm >=1.7 Atria Name Value Normal LA Dimensions LA Dimension (2D) 2.6 cm 2.7-3.8 LA Dimen Index (2D) 1.2 cm/m2 LA Volume (BP MOD) 41 ml LA Volume Index (BP MOD) 19 ml/m2 16-34 Report Signatures Finalized by Gwen Mckeon on 10/20/2024 09:50 AM Gwen Mckeon MD ECHO CUPID * HOLTER MONITOR (09/19/2024) Gwen Mckeon MD CARDIAC SERVICES ORD ERABLES * HEMOGLOBIN A1C (02/19/2023 12:14 PM CDT) Only the most recent of2 resultswithin the time period is included. Hemoglobin A1c 5.4 4.2 - 5.6 % 02/19/2023 6:57 PM CDT [facility] Estimated Average Glucose 108 mg/dL 02/19/2023 6:57 PM CDT [facility] Blood BLOOD SPECIMEN WITH EDTA / Unknown Venipuncture / Unknown 02/19/2023 12:14 PM CDT 02/19/2023 12:14 PM CDT Narrative [facility] - 02/19/2023 6:57 PM CDT HbA1c Interpretation: Normal: < 5.7% Pre-diabetes: 5.7-6.4% Diabetes: Equal to or greater than 6.5% Test results diagnostic of diabetes should be repeated for confirmation. Treatment target values recommended by ADA and other clinical organizations should be used to evaluate metabolic control in patients. This test should not replace glucose testing for patients with Type 1 diabetes, pediatric patients, or women. Falsely low HbA1c results may be observed in patients with clinical conditions that shorten erythrocyte life span or decrease mean erythrocyte age such as the presence of unstable hemoglobin variants, elevated hemoglobin F level or other causes of hemolytic anemia. HbA1c may not accurately reflect glycemic control when clinical conditions that affect erythrocyte survival are present. Severe Iron deficiency anemia may yield falsely high results. Hemoglobin A1c assay should not be used to diagnose or monitor diabetes in patients with malignancy, recent blood transfusion, chronic kidney or liver disease. This method may yield falsely low results when hemoglobin (HbF) exceeds 5% in the specimen. The [employer] assay for the measurement of HbA1c is a National Glycohemoglobin Standardization Program (NGSP) certified method. Adam Joe CHEMICAL TANK WORKER-SURVEILLANCE INVESTIGATOR LAB - CHEMISTR Y ORDERABLES Performing Organization Address City/State/[facility] Co de Phone Number [facility] [address] * TSH (02/19/2023 12:14 PM CDT) Only the most recent of6 resultswithin the time period is included. TSH 2.2809 0.35 - 4.94 uIU/mL 02/19/2023 7:38 PM CDT [facility] Blood BLOOD SPECIMEN / Unknown Venipuncture / Unknown 02/19/2023 12:14 PM CDT 02/19/2023 12:14 PM CDT Adam Garcia Heath CHEMICAL TANK WORKER-SURVEILLANCE INVESTIGATOR LAB - CHEMISTR Y ORDERABLES [facility] [address] [place] [address], [facility] * (ABNORMAL) LIPID PROFILE (02/19/2023 12:14 PM CDT) Only the most recent of3 resultswithin the time period is included. Cholesterol 201(H) <200 mg/dL 02/19/2023 7:13 PM CDT [facility] Triglycerides 104 <150 mg/dL 02/19/2023 7:13 PM CDT [facility] HDL Cholesterol 52 >40 mg/dL 3 7:13 PM CDT [facility] Chol HDL Ratio 3.9 1.0 - 6.0 02/19/2023 7:13 PM CDT [facility] LDL Calculated 128 65 - 130 mg/dL 02/19/2023 7:13 PM CDT [facility] VLDL Calculated 21 <=30 mg/dL 3 7:13 PM CDT [facility] Blood BLOOD SPECIMEN / Unknown Venipuncture / Unknown 02/19/2023 12:14 PM CDT 02/19/2023 12:14 PM CDT Narrative [facility] - 02/19/2023 7:13 PM CDT Lipid Profile Comment: CHOLESTEROL LEVEL..................CLINICAL INTERPRETATION LESS THAN 200 MG/DL..............................DESIRABLE 200-239 MG/DL..............................BORDERLINE HIGH GREATER THAN 240 MG/DL................................HIGH LDL-CHOLESTEROL LEVEL..............CLINICAL INTERPRETATION LESS THAN 100 MG/DL................................OPTIMAL 100-129 MG/DL.................................NEAR OPTIMAL GREATER THAN 160 MG/DL...........................HIGH RISK HDL RISK LEVEL GREATER THEN 60 MG/DL............................DECREASED 40-60 MG/DL........................................AVERAGE LESS THAN 40 MG/DL...............................INCREASED TRIGLYCERIDE LEVEL..................CLINICAL INTERPRETATION LESS THAN 150 MG/DL...............................DESIRABLE 150-199 MG/DL...............................BORDERLINE HIGH 200-499 MG/DL..........................................HIGH GREATER THAN 500..................................VERY HIGH THE NATIONAL CHOLESTEROL EDUCATION PROGRAM HAS SET THE ABOVE GUIDELINES (REFERANCE VALUES) FOR CHOLESTEROL AND HDL. RISK ASSOCIATED WITH CHOLESTEROL/HDL RATIOS RISK....................MALE RATIO.............FEMALE RATIO 1/2 AVERAGE.................<3.4.......................<3.3 LOW RISK.................... 4.0 ...................... 3.8 AVERAGE..................... 5.0 ...................... 4.5 2X AVERAGE.................. 9.5 ...................... 7.0 3X AVERAGE...................>23........................>11 Adam Joe CHEMICAL TANK WORKER-SURVEILLANCE INVESTIGATOR LAB - CHEMISTR Y ORDERABLES Performing Organization Address City/[facility] Co de Phone Number [facility] [address] [place] [address] * STREP A SCREEN - POINT OF CARE (AMB) [facility] (07/28/2022 9:13 AM CDT) [facility] Strep A Rapid POCT Negative Negative [facility] Strep A Rapid Screen Internal Control POCT Absent [facility] Throat ENTIRE THROAT (SURFACE REGION OF NECK) / Unknown 07/28/2022 9:13 AM CDT Bartolo HERR LAB - POINT OF CARE ORDERABLES Performing Organization Address City/[facility] Co de Phone Number [facility] [address] [phone] * SARS-COV-2 (COVID-19) INTERNAL (07/06/2021 12:57 PM CDT) Only the most recent of3 resultswithin the time period is included. [facility] COVID-19 PCR Not detected Not detected 07/07/2021 6:21 AM CDT [facility] Microbiology SPECIMEN FROM NASOPHARYNGEAL STRUCTURE / Unknown Collection / Unknown 07/06/2021 12:57 PM CDT 07/06/2021 12:57 PM CDT Narrative [facility] - 07/07/2021 6:21 AM CDT This nucleic acid amplification assay performance was validated by [facility]. This test has been authorized by the Food and Drug administration (FDA)under an Emergency Use Authorization (EUA). This test has been validated in accordance with the FDA's guidance document Policy for Diagnostic Testing in Laboratories Certified to perform High Complexity Testing under CLIA prior to Emergency Use Authorization for Coronavirus Disease-2019 during the Public Health Emergency issued on December 04, 2019. FDA independent review of this validation is pending. This test is only authorized for the duration of time the declaration that circumstances exist justifying the authorization of emergency use of in vitro diagnostic tests for detection of SARS-CoV-2 virus and/or diagnosis of COVID-19 infection under section 564(b)(1) of the Act, 21 U.S.C 360bbb-3 (b)(1), unless the authorization is terminated or revoked sooner. Fact Sheets for this EUA assay are available upon request. Licha Cadet DO LAB - MICROBIOLO GY ORDERABLES [facility] [address] [place] [phone] * CULTURE URINE (08/06/2019 4:44 PM CDT) Culture Urine No growth day 2 TESSIE 08/08/2019 6:53 AM [facility] Urine URINE SPECIMEN OBTAINED BY CLEAN CATCH PROCEDURE / Unknown Collection / Unknown 08/06/2019 4:44 PM CDT 08/06/2019 4:44 PM CDT Merle Kruse APRN-SURVEILLANCE INVESTIGATOR LAB - MICROBIOLOGY ORDERABLES [facility] [address] * (ABNORMAL) URINALYSIS - POCT (IP) BEAKER INTERFACE (08/06/2019 4:27 PM CDT) Color UA POCT Yellow Straw, Yellow, Light Yellow 08/06/2019 4:22 PM CDT [facility] Clarity UA POCT Cloudy(A) Clear 9 4:22 PM CDT [facility] Specific [place] UA POCT >=1.030 1.005 - 1.030 08/06/2019 4:22 PM CDT [facility] pH UA POCT 5.5 5.0 - 8.5 pH 08/06/2019 4:22 PM CDT [facility] Protein UA POCT Negative Negative 9 4:22 PM CDT [facility] Blood UA POCT Negative Negative, Trace-lysed, Trace-intact 08/06/2019 4:22 PM CDT [facility] Leukocyte UA POCT Negative Negative 08/06/2019 4:22 PM CDT [facility] Nitrite UA POCT Negative Negative 9 4:22 PM CDT [facility] Glucose UA POCT Negative Negative 9 4:22 PM CDT [facility] Ketone UA POCT Negative Negative 08/06/2019 4:22 PM CDT [facility] Bilirubin UA POCT 1+(A) Negative 08/06/2019 4:22 PM CDT [facility] Urobilinogen UA POCT 0.2 0.2 - 1.0 EU/dL 08/06/2019 4:22 PM CDT [facility] Urine URINE / Unknown 08/06/2019 4 :27 PM CDT 08/06/2019 4:22 PM CDT [facility] Provider1 LAB - POINT OF CARE ORDERABLES [facility] [address] [place], [place] [id number] * URINALYSIS - POCT (IP) NOTIFICATION (08/06/2019 4:19 PM CDT) Comment Notification Label Only - See Separate Report 08/06/2019 5:30 PM CDT [facility] Urine URINE / Unknown 08/06/2019 4 :19 PM CDT 08/06/2019 4:19 PM CDT Jing Ayala CHEMICAL TANK WORKER-SURVEILLANCE INVESTIGATOR LAB - URINALYSI S ORDERABLES [facility] [address] * FINE NEEDLE ASPIRATION THYROID (ILL) (06/23/2019 3:15 PM CDT) Final Diagnosis THYROID, LEFT MID, FNA (1-3 PASSES) CYTOLOGY: - SPECIMEN ADEQUACY: ADEQUATE - BENIGN COLLOID NODULE TR/na 06/25/2019 9:27 AM [facility] Clinical History 1.8 x 0.9 x 1.8 cm, solid single nodule. INTRAOPERATIVE PATHOLOGIC DIAGNOSIS: LEFT MID THYROID, ULTRASOUND FINE NEEDLE ASPIRATION, PASSES #1-3: ADEQUATE. Interpreted by Lara Bai at 1530 hours. Verbally reported to Dr. Dee on site. 06/25/2019 9:27 AM [facility] Gross Description Received are 3 Diff-Quik and 3 Pap stained slides for cytologic evaluation. 06/25/2019 9:27 AM [facility] Disclaimer The performance characteristics of all immunohistochemical and indirect immunofluorescence stains (if any) cited in this report were determined by the Histopathology Laboratory of [facility]. Some of these tests were developed by our own laboratory and have not been cleared or approved by the US Food and Drug Administration. The FDA does not require this test to go through premarket FDA review. These tests are used for clinical purposes. They should not be regarded as investigational or for research. This laboratory is certified under the Clinical Laboratory Improvement Amendments (CLIA) as qualified to perform high complexity clinical laboratory testing. This case was interpreted by the [facility] Department of Pathology. When applicable, select reference laboratory testing is performed at the [facility] Pathology [facility], [address] [place] [id number]. 06/25/2019 9:27 AM [facility] Case Report Fine Needle Aspiration Report Case: [id number] Authorizing Provider: Jean Dee MD Collected: 06/23/2019 03:15 PM Ordering Location: [facility] Received: 06/23/2019 03:43 PM Pathologist: Benjamin Nowak MD Specimen: Needle Aspirate, Left mid thyroid 06/25/2019 9:27 AM CDT [facility] Embedded Images 06/25/2019 9:27 AM CDT AM [facility] Pathology/Cytolo gy FINE NEEDLE ASPIRATION BIOPSY - ACTION / Unknown 06/23/2019 3:15 PM CDT 06/23/2019 3:43 PM CDT Jean Dee MD LAB - PATHOLOGY/CYTO LOGY ORDERABLES [facility] [address] * TSH REFLEX FREE T4 (05/09/2019 8:35 PM CDT) TSH 3.8859 0.35 - 4.94 uIU/mL 05/09/2019 9:27 PM CDT [facility] Blood BLOOD SPECIMEN / Unknown Venipuncture / Unknown 05/09/2019 8:35 PM CDT 05/09/2019 8:39 PM CDT Kong Hernández MD LAB - CHEMISTRY DANIA CARSON Performing Organization Address City/[facility]/ZIP Co de Phone Number [facility] [address] * ALCOHOL ETHYL BLOOD (05/09/2019 8:35 PM CDT) Only the most recent of2 resultswithin the time period is included. Ethanol <10.00 <10 mg/dL 05/09/2019 9:08 PM CDT [facility] Blood BLOOD SPECIMEN / Unknown Venipuncture / Unknown 05/09/2019 8:35 PM CDT 05/09/2019 8:39 PM CDT Narrative [facility] - 05/09/2019 9:08 PM CDT For Medical Use Only Kong Hernández MD LAB - CHEMISTRY DANIA CARSON Performing Organization Address [facility] Co de Phone Number [facility] [address] * (ABNORMAL) SALICYLATE LEVEL BLOOD (05/09/2019 8:35 PM CDT) Only the most recent of2 resultswithin the time period is included. Salicylate <5.0(L) 15.0 - 30.0 mg/dL 05/09/2019 9:08 PM CDT [facility] Blood BLOOD SPECIMEN / Unknown Venipuncture / Unknown 05/09/2019 8:35 PM CDT 05/09/2019 8:39 PM CDT Kong Hernández MD LAB - CHEMISTRY DANIA CARSON Performing Organization Address [facility] de Phone Number [facility] [address] * (ABNORMAL) ACETAMINOPHEN LEVEL (05/09/2019 8:35 PM CDT) Only the most recent of2 resultswithin the time period is included. Acetaminophen <0.6(L) 10.0 - 30.0 ug/mL 05/09/2019 9:08 PM CDT [facility] Blood BLOOD SPECIMEN / Unknown Venipuncture / Unknown 05/09/2019 8:35 PM CDT 05/09/2019 8:39 PM CDT Narrative [facility] - 05/09/2019 9:08 PM CDT Significantly reduced Acetaminophen recovery has been demonstrated in situations where testing has been performed immediately after introduction of N- acetylcysteine (NAC). Kong Hernández MD LAB - CHEMISTRY DANIA CARSON Performing Organization Address [facility] Co de Phone Number [facility] [address] * DRUG ABUSE URINE SCREEN 10 (05/09/2019 7:48 PM CDT) Only the most recent of3 resultswithin the time period is included. Amphetamines Screen Urine Negative Negative 05/09/2019 8:20 PM CDT [facility] Barbiturates Screen Urine Negative Negative 05/09/2019 8:20 PM CDT [facility] Benzodiazepines Screen Urine Negative Negative 05/09/2019 8:20 PM CDT [facility] Cannabinoids Screen Urine Negative Negative 05/09/2019 8:20 PM CDT [facility] Cocaine Screen Urine Negative Negative 05/09/2019 8:20 PM CDT [facility] Methadone Screen Urine Negative Negative 05/09/2019 8:20 PM CDT [facility] Opiate Screen Urine Negative Negative 05/09 8:20 PM CDT [facility] Phencyclidine Screen Urine Negative Negative 05/09/2019 8:20 PM CDT [facility] Tricyclics Screen Urine Negative Negative 05/09/2019 8:20 PM CDT [facility] Methamphetamine Screen Urine Negative Negative 05/09/2019 8:20 PM CDT [facility] Buprenorphine Screen Urine Negative Negative 05/09/2019 8:20 PM CDT [facility] Oxycodone Screen Urine Negative Negative 05/09/2019 8:20 PM CDT [facility] Propoxyphene Screen Urine Negative Negative 05/09/2019 8:20 PM CDT [facility] Urine URINE / Unknown Collection / Unknown 05/09/2019 7:48 PM CDT 05/09/2019 8:07 PM CDT Narrative [facility] - 05/09/2019 8:20 PM CDT This is a presumptive/unconfirmed test for medical treatment purposes only. Clinical consideration and professional judgment should be applied when using presumptive results. If confirmatory testing, such as gas chromatography-mass spectrometry (GC/MS), of any positive results of this test is required, please notify the laboratory within 7 days of collection. This test is intended only for monitoring or management of patients. It is not intended for use in job-related and/or legal-related purposes. The cutoff value for each analyte is: Barbiturates.....200 ng/mL Benzodiazepines......150 ng/mL Cocaine..........150 ng/mL Opiates..............100 ng/mL Phencyclidine.....25 ng/mL Tricyclics...........300 ng/mL Cannabinoid.......50 ng/mL Amphetamines.........500 ng/mL Methadone........200 ng/mL Methamphetamines.....500 ng/mL Buprenorphine.....10 ng/mL Oxycodone............100 ng/mL Propoxyphene.....300 ng/mL Kong Hernández MD LAB - URINE CHEMISTR Y ORDERABLES [facility] [address] [place], [place] [address] * (ABNORMAL) URINALYSIS REFLEX MICROSCOPIC REFLEX CULTURE (05/09/2019 7:48 PM CDT) Only the most recent of4 resultswithin the time period is included. Color UA Yellow Straw, Yellow 05/09/2019 8:12 PM CDT [facility] Clarity UA Cloudy(A) Clear 05/09/2019 8:12 PM CDT [facility] Glucose UA Negative Negative 05/09/2019 8:12 PM CDT [facility] Bilirubin UA Negative Negative 05/09/2019 8:12 PM CDT [facility] Ketone UA Negative Negative 05/09/2019 8:12 PM CDT [facility] Specific [place] UA 1.024 1.005 - 1.030 05/09/2019 8:12 PM CDT [facility] Blood UA Negative Negative 05/09/2019 8:12 PM CDT [facility] pH UA 5.0 5.0 - 8.0 pH 05/09/2019 8:12 PM CDT [facility] Protein UA Negative Negative 05/09/2019 8:12 PM CDT [facility] Urobilinogen UA Negative Negative mg/dL 05/09/2019 8:12 PM CDT [facility] Nitrite UA Negative Negative 05/09/2019 8:12 PM CDT [facility] Leukocyte UA Negative Negative 05/09/2019 8:12 PM CDT [facility] Urine Microscopy Urine microscopy not indicated 05/09/2019 8:12 PM CDT [facility] Reflex Status Culture not indicated 05/09/2019 8:12 PM CDT [facility] Urine URINE SPECIMEN OBTAINED BY CLEAN CATCH PROCEDURE / Unknown Collection / Unknown 05/09/2019 7:48 PM CDT 05/09/2019 8:07 PM CDT Narrative [facility] - 05/09/2019 8:12 PM CDT Kong Hernández MD LAB - URINALYSIS ORD DELORES Performing Organization Address [facility] Co de Phone Number [facility] [address] * HCG URINE QUALITATIVE (05/09/2019 7:48 PM CDT) hCG Qualitative Urine Negative Negative 05/09/2019 8:12 PM CDT [facility] Specific [place] UA 1.024 1.005 - 1.030 05/09/2019 8:12 PM CDT [facility] Urine URINE / Unknown Collection / Unknown 05/09/2019 7:48 PM CDT 05/09/2019 8:07 PM CDT Kong Hernández MD LAB - URINALYSIS ORD DELORES Performing Organization Address [facility] Phone Number [facility] [address] * T3 FREE (05/05/2019 1:08 PM CDT) Only the most recent of2 resultswithin the time period is included. Pathologist [facility] T3 Free 2.6 2.4 - 4.2 pg/mL 05/07/2019 9:25 PM CDT [facility] ([facility]) Comment: REFERENCE INTERVAL: Triiodothyronine, Free (Free T3) Access complete set of age- and/or gender-specific reference intervals for this test in the [facility] Test Directory ([facility]). Performed by [employer], [address] [place] [address],[place] [address] [email or web address], Gurwinder Howard MD, Lab. Director Blood BLOOD SPECIMEN / Unknown Lab Venipuncture / Unknown 05/05/2019 1:08 PM CDT 05/05/2019 1:23 PM CDT Jean Dee MD LAB - CHEMISTRY DANIA CARSON Performing Organization Address [facility] Co de Phone Number [facility]) [address] [place] [address], [facility] * T4 FREE (05/05/2019 1:08 PM CDT) Only the most recent of2 resultswithin the time period is included. T4 Free 0.79 0.71 - 1.48 ng/dL 05/05/2019 2:02 PM CDT [facility] Blood BLOOD SPECIMEN / Unknown Lab Venipuncture / Unknown 05/05/2019 1:08 PM CDT 05/05/2019 1:23 PM CDT Jean Dee MD LAB - CHEMISTRY DANIA CARSON Performing Organization Address [facility] de Phone Number [facility] [address] * THYROID STIMULATING IMMUNOGLOBULIN (TSI) (02/09/2019 10:44 AM CDT) Pathologist [facility] Thyroid Stimulating Immunoglobulin 95 <=122 % 02/14/2019 11:32 AM CDT [facility] ([facility]) Comment: INTERPRETIVE INFORMATION: Thyroid Stimulating Immunoglobulin Negative - 122 percent basal activity or less Positive - 123 percent basal activity or greater Positive results (123 percent or greater) are consistent with Graves disease but do not always correlate with the presence and severity of hyperthyroidism. Antibodies to the thyroid stimulating hormone receptor (TSHR) may be stimulating, blocking, or neutral. Stimulating antibodies mimic the action of TSH and may cause hyperthyroidism (Graves disease). This test determines the net effect of all TSHR antibody types present in the serum specimen. Test developed and characteristics determined by [employer]. See Compliance Statement B: [employer] Performed by [employer] [facility] [employer], [address] [place] [address] [email or web address], Gurwinder Howard MD, Lab. Director Blood BLOOD SPECIMEN / Unknown Venipuncture / Unknown 02/09/2019 10:44 AM CDT 02/09/2019 10:52 AM CDT Jean Dee MD LAB - CHEMISTRY DANIA CARSON Performing Organization Address City/[facility] Co de Phone Number [facility] ([facility]) [address] [place] [address], [facility] * CT ABDOMEN AND PELVIS W [place] IV CONT [id number] (06/24/2018 5:24 PM CDT) Anatomical Region Laterality Modality Abdomen, Pelvis Computed Tomogra phy 06/24/2018 5:27 PM CDT Impressions 06/24/2018 5:42 PM CDT 1. No fistulization extending from the rectum. 2. Surgical changes including hysterectomy and cholecystectomy and possible appendectomy. No gross acute abnormality. Edited by Yen Armstrong on 06/24/2018 5:36 PM Narrative 06/24/2018 5:42 PM CDT IMAGING STUDIES: CT ABDOMEN PELVIS WWO CONTRAST DATE: 06/24/2018 5:24 PM HISTORY: Abnormal physical exam earlier same date with possible right-sided vaginal wall defect with concern for possible rectovaginal fistulization. COMPARISON: No comparisons. CONTRAST: 89 mL Isovue-300 IV contrast administered. Pre and arterial phase images obtained as well as 5 and 10 minute directed images through the lower pelvis following the administration of rectal contrast as well. A small amount of oral contrast also administered. Radiation dose reduction technique was utilized. FINDINGS: The lower chest appears normal. In the abdomen and pelvis, cholecystectomy clips noted. Liver, pancreas, spleen, stomach, aorta, adrenal glands, kidneys, visualized ureters, and urinary bladder appear normal. On delayed supine and right lateral decubitus images extending out to 10 minutes postrectal contrast administration, no fistulization observed. The bowel gas pattern is nonobstructive with no free air or free fluid. Patient status post hysterectomy. The appendix is not seen but no grossly inflamed appendix present. No definite lymphadenopathy. A tiny 10 mm size umbilical hernia present with only herniated omental fat. Bones and extraperitoneal soft tissues appear intact. Procedure Note Brent Coronado MD - 06/24/2018 IMAGING STUDIES: CT ABDOMEN PELVIS WWO CONTRAST DATE: 06/24/2018 5:24 PM HISTORY: Abnormal physical exam earlier same date with possible right-sided vaginal wall defect with concern for possible rectovaginal fistulization. COMPARISON: No comparisons. CONTRAST: 89 mL Isovue-300 IV contrast administered. Pre and arterial phase images obtained as well as 5 and 10 minute directed images through the lower pelvis following the administration of rectal contrast as well. A small amount of oral contrast also administered. Radiation dose reduction technique was utilized. FINDINGS: The lower chest appears normal. In the abdomen and pelvis, cholecystectomy clips noted. Liver, pancreas, spleen, stomach, aorta, adrenal glands, kidneys, visualized ureters, and urinary bladder appear normal. On delayed supine and right lateral decubitus images extending out to 10 minutes postrectal contrast administration, no fistulization observed. The bowel gas pattern is nonobstructive with no free air or free fluid. Patient status post hysterectomy. The appendix is not seen but no grossly inflamed appendix present. No definite lymphadenopathy. A tiny 10 mm size umbilical hernia present with only herniated omental fat. Bones and extraperitoneal soft tissues appear intact. IMPRESSION 1. No fistulization extending from the rectum. 2. Surgical changes including hysterectomy and cholecystectomy and possible appendectomy. No gross acute abnormality. Edited by Yen Armstrong on 06/24/2018 5:[address] ORDERABLES * HCG URINE QUALITATIVE - POCT (IP) BEAKER - ILL (06/24/2018 4:05 PM CDT) Pathologist [facility] HCG Qual Urine Negative Negative [facility] Lot # [id number] [facility] Expiration Date 2019-12-04 [facility] QC Verified Yes Yes [facility] Urine URINE / Unknown 06/24/2018 4 :05 PM CDT Bartolo HERR LAB - POINT OF CARE ORDERABLES [facility] [address] [place], [place] [address] * LIPASE BLOOD (06/24/2018 3:32 PM CDT) Only the most recent of2 resultswithin the time period is included. Pathologist [facility] Lipase 17 8 - 78 U/L 06/24/2018 4:00 PM CDT [facility] Blood BLOOD SPECIMEN / Unknown Venipuncture / Unknown 06/24/2018 3:32 PM CDT 06/24/2018 3:40 PM CDT Bartolo HERR LAB - CHEMISTRY DANIA CARSON Performing Organization Address [facility]/ZIP Co de Phone Number [facility] [address] * TROPONIN I (04/23/2018 11:05 PM CDT) Only the most recent of4 resultswithin the time period is included. Troponin I <0.012 <=0.049 ng/mL 04/23/2018 11:40 PM CDT [facility] Blood BLOOD SPECIMEN / Unknown Venipuncture / Unknown 04/23/2018 11:05 PM CDT 04/23/2018 11:09 PM CDT Narrative [facility] - 04/23/2018 11:40 PM CDT Note: Diagnosis of myocardial infarction requires symptoms of ischemia or EKG changes of ischemia and Troponin I >99th percentile of normal with <10% coefficient of variation (CV) (0.05 ng/mL) Troponin should be drawn on initial assessment and 3-6 hours later as clinically indicated. Any condition resulting in myocardial cell damage can increase cardiac troponin levels. In addition to myocardial infarction, these include but are not limited to congestive heart failure, arrhythmia, myocarditis, and non-cardiac related causes such as pulmonary embolism, renal failure and sepsis. Phyllis Prater APRN-SURVEILLANCE INVESTIGATOR LAB - CHEMISTRY ORDERABLES Performing Organization Address [facility] Co de Phone Number [facility] [address] * D-DIMER (04/23/2018 9:18 PM CDT) D-Dimer 0.19 <0.5 mg/L FEU 04/23/2018 9:49 PM CDT [facility] Blood BLOOD SPECIMEN / Unknown Venipuncture / Unknown 04/23/2018 9:18 PM CDT 04/23/2018 9:32 PM CDT Narrative [facility] - 04/23/2018 9:49 PM CDT D-Dimer Note - [employer] D-Dimer assay should only be used in conjunction with an appropriate algorithm for diagnosis of deep vein thrombosis (DVT)/ venous thromboembolism (PE) and must be interpreted in combination with clinical probability. D-Dimer results of <0.50 mg/L FEU (exclusion cut-off level) is only useful to exclude diagnosis of DVT/PE in patients with low to moderate pretest probability. A very low percentage of patients with a distal venous thromboembolism (VTE) may yield a D- Dimer result below the cut-off value. An elevated D-Dimer result may indicate disseminated intravascular coagulation (DIC) in the appropriate clinical setting. Phyllis AGUERO LAB - COAGULATIO N ORDERABLES [facility] [address] [place] [address], [facility] * XR CHEST PA AND LATERAL (04/23/2018 8:58 PM CDT) Only the most recent of2 resultswithin the time period is included. Anatomical Region Laterality Modality Chest Radiographic Annamarie ging 04/24/2018 6:26 AM CDT Impressions 04/24/2018 6:26 AM CDT HISTORY: Other chest pain. COMPARISON: No comparison. FINDINGS: Two views of the chest show no evidence of pulmonary disease. The heart and mediastinum are within normal limits. The diaphragms are smooth and the costophrenic angles are clear. The lungs are radiographically clear. Bony thorax is normal. Prior cholecystectomy. IMPRESSION: The chest is within normal limits. Narrative 04/24/2018 6:26 AM CDT PROCEDURE: XR CHEST 2VW 04/24/2018 6:26 AM FINDINGS AND Procedure Note Marti Nava MD - 04/24/2018 PROCEDURE: XR CHEST 2VW 04/24/2018 6:26 AM FINDINGS AND IMPRESSION HISTORY: Other chest pain. COMPARISON: No comparison. FINDINGS: Two views of the chest show no evidence of pulmonary disease. The heart and mediastinum are within normal limits. The diaphragms are smooth and the costophrenic angles are clear. The lungs are radiographically clear. Bony thorax is normal. Prior cholecystectomy. IMPRESSION: The chest is within normal limits. Phyllis AGUERO DIAGNOSTIC IMAGI NG ORDERABLES * AMYLASE BLOOD (03/25/2017 6:55 PM CDT) Amylase 39 25 - 125 U/L 03/25/2017 8:33 PM CDT [facility] Blood BLOOD SPECIMEN / Unknown 03/25/2017 6:55 PM CDT 03/25/2017 7:02 PM CDT Larry Gonzalez MD LAB - CHEMISTRY DANIA CARSON [facility] [address] * URINALYSIS ROUTINE AUTO (05/01/2015 12:30 PM CDT) Color UA Yellow 05/01/2015 1:17 PM CDT [facility] Clarity UA Clear 05/01/2015 1:17 PM CDT [facility] Specific [place] UA 1.010 1.005 - 1.030 05/01/2015 1:17 PM CDT [facility] pH UA 6.0 5.0 - 8.0 pH 05/01/2015 1:17 PM CDT [facility] Protein UA Negative Negative 05/01/2015 1:17 PM CDT [facility] Blood UA Negative Negative 05/01/2015 1:17 PM CDT [facility] Leukocyte UA Negative Negative 05/01/2015 1:17 PM CDT [facility] Nitrite UA Negative Negative 05/01/2015 1:17 PM CDT [facility] Glucose UA Negative Negative 05/01/2015 1:17 PM CDT [facility] Ketone UA Negative Negative 05/01/2015 1:17 PM CDT [facility] Bilirubin UA Negative Negative 05/01/2015 1:17 PM CDT [facility] Urobilinogen UA 0.2 0.2 - 1.0 EU/dL 05/01/2015 1:17 PM CDT [facility] Urine Microscopy Urine microscopy not indicated 05/01/2015 1:17 PM CDT [facility] Urine URINE SPECIMEN OBTAINED BY CLEAN CATCH PROCEDURE / Unknown Collection / Unknown 05/01/2015 12:30 PM CDT 05/01/2015 12:45 PM CDT Merle Kruse CHEMICAL TANK WORKER-SUKI LAB - URINALYSIS OR DERABLES [facility] [address] [place] [address], [facility] * CARDIAC RHYTHM STRIP ORDER (09/27/2014 9:25 AM BEHAVIORAL SCIENCE CHAIR) Narrative 09/27/2014 9:25 AM BEHAVIORAL SCIENCE CHAIR Ordered by an unspecified provider. Scanned Document CARDIAC SERVICES ORD ERABLES * GROSS + MICRO EXAM (ILL) (09/19/2014 1:17 PM BEHAVIORAL SCIENCE CHAIR) Case Report Surgical Pathology Report Case: [id number] Authorizing Provider: Alan Jauregui MD Collected: 09/19/2014 01:17 PM Ordering Location: [facility] Received: 09/19/2014 02:41 PM Pathologist: Alan Beard MD Specimen: Uterus w BSO, uterus bilateral tubes and ovaries and cervix 09/20/2014 12:14 PM BEHAVIORAL SCIENCE CHAIR [facility] Final Diagnosis UTERUS, 71 GRAMS, LAPAROSCOPIC TOTAL HYSTERECTOMY: - CERVIX WITH SQUAMOUS METAPLASIA AND NABOTHIAN CYSTS. - ENDOMETRIUM WITH CHANGES OF PRIOR ABLATION. - MYOMETRIUM WITHOUT GROSS OR HISTOLOGIC ABNORMALITY. - SEROSA WITHOUT GROSS OR HISTOLOGIC ABNORMALITY. OVARIES AND FALLOPIAN TUBES, BILATERAL SALPINGO-OOPHORE CTOMY: - LEFT OVARY WITH A CENTRALLY HEMORRHAGIC CORPUS LUTEUM CYST, FOLLICULAR CYSTS AND FIBROCORTICAL ADHESIONS. - RIGHT OVARY WITH FOLLICULAR CYSTS AND FIBROCORTICAL ADHESIONS. - BILATERAL FALLOPIAN TUBES WITH CHANGES OF PRIOR INTERRUPTION. - NEGATIVE FOR MALIGNANCY. FARIDEH/monica 09/20/2014 12:14 PM BEHAVIORAL SCIENCE CHAIR [facility] Clinical History Collection Date: 09/19/2014 Preoperative Clinical Diagnosis: Endometriosis, Chronic interstitial cystitis. Operative Procedure: ROBOTIC ASSISTED LAPAROSCOPIC HYSTERECTOMY TOTAL, with bilateral salpingo-oophere ctomy, cystoscopy. Specimen Submitted: Uterus bilateral tubes and ovaries and cervix. Physician: Dr. Alan Jauregui 09/20/2014 12:14 PM BEHAVIORAL SCIENCE CHAIR [facility] Gross Description Received in formalin labeled Michelle Briggs and uterus bilateral tubes and ovaries and cervix , is a uterus with attached cervix and bilateral adnexa. The 71 gram uterus with attached cervix is 7.5 cm in height and 4.7 x 3.7 cm in greatest fundal dimensions. The cervix is 3.9 x 3.7 cm with a 1 cm os. The uterine serosa is pink-hardwick and unremarkable. When opened along lateral resection margins, the endometrial lining is scared and irregular, consistent with prior ablation. Endometrial and endocervical polyps are both absent. Cervical Nabothian cysts are present on sectioning. On sectioning, the uterine wall is up to 1.7 cm in thickness without discreet nodularities or hemorrhagic cystic change. The left fallopian tube contains changes of prior surgical interruption with a serosalized plastic interruption ring present. The tube is 4.5 cm in length and up to 0.7 cm in diameter. Sectioning is unremarkable. The 11 gram left ovary is 3.4 x 2.6 x 2.2 cm in greatest dimensions. On sectioning, the ovary is edematous and contains a centrally hemorrhagic luteal cyst and multiple additional cortical follicular cysts. Papillary areas are not identified. The right fallopian tube also contains a plastic white interruption ring. This tube is 5 cm in length with fimbria and up to 0.7 cm in diameter. Sectioning is unremarkable. The 6 gram right ovary is 2.7 x 2.1 x 1.9 cm in greatest dimensions. Numerous subcapsular follicular cysts are again present. Sections of anterior and posterior cervical transition zone are submitted in cassettes A1 and A2, respectively. Full thickness anterior endomyometrium with serosa is submitted in cassettes A3 and A4 with full thickness posterior tissue in cassettes A5 and A6. Left adnexa is submitted in cassettes A7 and A8 with right adnexa in cassettes A9 and A10. FARIDEH/monica 09/20/2014 12:14 PM BEHAVIORAL SCIENCE CHAIR [facility] Microscopic Description Microscopic examination is performed and substantiates the above diagnosis. 09/20/2014 12:14 PM BEHAVIORAL SCIENCE CHAIR [facility] Testing Performed By Performed by [facility] [address] 09/20/2014 12:14 PM BEHAVIORAL SCIENCE CHAIR [facility] Pathology/Cytolo gy HYSTERECTOMY AND BILATERAL SALPINGO-OOPHORECTOM Y SPECIMEN / Unknown 09/19/2014 1:17 PM BEHAVIORAL SCIENCE CHAIR 09/19/2014 2:41 PM BEHAVIORAL SCIENCE CHAIR Comment:617.9 Alan Jauregui MD LAB - PATHOLOGY/CYTO LOGY ORDERABLES [facility] [address] * TYPE + SCREEN PANEL (09/13/2014 4:12 PM BEHAVIORAL SCIENCE CHAIR) ABO O 09/13/2014 7:03 PM BEHAVIORAL SCIENCE CHAIR [facility] Rh Type Negative 09/13/2014 7:03 PM BEHAVIORAL SCIENCE CHAIR [facility] Antibody Screen Negative 09/13/2014 7:03 PM BEHAVIORAL SCIENCE CHAIR [facility] Miscellaneous samples (specimen) BLOOD SPECIMEN / Unknown 09/13/2014 4:12 PM BEHAVIORAL SCIENCE CHAIR 09/13/2014 4:22 PM BEHAVIORAL SCIENCE CHAIR Alan Jauregui MD LAB - BLOOD BANK ORD ERABLES Performing Organization Address City/[facility]/ZIP Co de Phone Number [facility] [address] * HCG BLOOD QUALITATIVE (09/13/2014 4:12 PM BEHAVIORAL SCIENCE CHAIR) HCG Qual Serum Negative Negative 09/13/2014 5:21 PM BEHAVIORAL SCIENCE CHAIR [facility] Blood BLOOD SPECIMEN / Unknown 09/13/2014 4:12 PM BEHAVIORAL SCIENCE CHAIR 09/13/2014 4:22 PM BEHAVIORAL SCIENCE CHAIR Alan Jauregui MD LAB - CHEMISTRY ORDE RABLES Performing Organization Address City/[facility]/ZIP Co de Phone Number [facility] [address] * GROSS + MICRO EXAM (05/11/2009 9:20 AM CDT) Only the most recent of8 resultswithin the time period is included. Result CASE NUMBER [id number] Comment: ORDERING PHYSICIAN LIBBY PRATER SPECIMEN TYPE Needle Biopsy-Left Breast Date of Surgery 05/11/2009 1034 Surgeon Sanjuanita PRATER SPECIMEN SOURCE Left breast biopsy. *Pre Op Dx Lump or mass in left breast. GROSS DESCRIPTION Received in formalin labeled left breast 3 00 needle core biopsy is a specimen consisting of multiple fragments of hardwick and red-brown to yellow needle biopsy segments all about 1 mm in diameter and up to about 7 mm in length. All submitted. Total volume of the specimen is less than 1 cc. Grossed by THOM LEVY M.D. *MICROSCOPIC EXAM Sections of the breast biopsy material show dense nodules composed of fibrous connective tissue. These compress and distort large glandular structures lined by benign epithelial cells. Read by THOM LEVY M.D. DIAGNOSIS BREAST, LEFT, NEEDLE BIOPSY - FIBROADENOMA. RELEASED BY THOM LEVY MD MISCELLANEOUS SAMPLES / Unknown 05/11/2009 9:20 AM CDT 05/11/2009 9:41 AM CDT Historical Provider LAB - PATHOLOGY/C YTOLOGY ORDERABLES Care Teams Check Embosser Relationship Specialty Start Date End Date Telma Noel APRN-SURVEILLANCE INVESTIGATOR [address] [place] [id number] PCP - General Nurse Practitioner Family 09/10/24 Haley Valadez MD [address] [place] [phone] Physician Pulmonary Disease 09/17/24
--- OUTSIDE RECORDS SUMMARY | 2024-11-28 00:51 | XMS_ITS | Referral Summary ---
Author Organization [facility] Address [address] [place] [address] Care Team Providers Care Mule Rider Name Role Phone BertLorenadenise AGUERO Primary Care Provider [phone] Haley Valadez MD Unavailable [phone] Source Comments [facility],non-owned Affiliates and Associated Physician Practices is amultiple site organization consisting of ambulatory clinics and hospital sitesin [place], [place], [place] and [place]. This disclosure is being madepursuant to the Care Everywhere program and may not contain all information available regarding this patient. Last updated 18.[facility] Encounters Date Type Department Care Team Description 11/16/2024 Telephone [facility] Heart & Vascular Care [address], [address] [place] [address] Diandra Gambino, RICHELLE-SUKI Question 11/15/2024 Travel 11/15/2024 3:29 PM HEALTH PROFESSIONAL - 11/15/2024 5:58 PM HEALTH PROFESSIONAL Emergency ER at [facility] [address] [place] [address] Nesha Crump, MORE Chest pain, unspecified type; Elevated blood pressure reading Discharge Disposition: Home or Self Care 11/05/2024 Refill [facility] Behavioral Health [address] [place] [address] Adam Joe, RICHELLE-SUKI Refill Request 10/29/2024 Telephone [facility] - Respiratory Therapy [address] [place] [address] Eve Carlson, TAMMI Preop Question (Pt. Stated, I have not had Covid. ) 10/18/2024 Telephone [facility] & Vascular Care [address], [address] [place] [address] Aidan Mckeon MD [facility] 10/15/2024 9:00 AM HEALTH PROFESSIONAL Office Visit [facility] Heart & Vascular [facility] [address], [facility] [address] [place] [address] Diandra Gambino, FISHING FLOATS ASSEMBLER-AUDIT CONTROL CLERK Shortness of breath (Primary Dx); Tachycardia; Dizziness; Chronic hypertension 10/13/[address] [facility] V[facility] [address], [facility] [address] [place] [address] Aidan Mckeon MD Results 2024 Travel 10/07/2024 8:59 AM HEALTH PROFESSIONAL Hospital Encounter [facility] - Nuclear Medicine [address] [place] [address] Aidan Mckeon MD Discharge Disposition: Home or Self Care 10/07/2024 9:00 AM HEALTH PROFESSIONAL - 10/07/2024 10:59 AM HEALTH PROFESSIONAL Hospital Encounter [facility] Cardiovascular Ultrasound [address] [place] [address] Aidan Mckeon MD Discharge Disposition: Home or Self Care 10/07/2024 11:00 AM HEALTH PROFESSIONAL - 10/07/2024 11:59 PM HEALTH PROFESSIONAL Hospital Encounter [facility] Cardiovascular Ultrasound [address] [place] [address] Aidan Mckeon MD Discharge Disposition: Home or Self Care 10/04/2024 Refill [facility] [address] [place] [address] Adam Joe APRN-AUDIT CONTROL CLERK MEDICATION REFILL 09/20/2024 Telephone [facility] Heart & Vascular [facility] [address], [facility] [address] [place] [address] Aidan Mckeon MD Results 09/20/[address] [facility] [address] [place] [address] Aidan Mckeon MD Shortness of breath; Tachycardia 09/17/[address] [facility] [address] [place] [address] Aidan Mckeon MD Abnormal Ekg 09/17/2024 8:20 AM HEALTH PROFESSIONAL Office Visit [facility] - Pulmonology [address] [place] [address] Haley Valadez MD Dyspnea on exertion (Primary Dx); Sleep apnea-like behavior 09/14/2024 Travel 09/10/[address] [facility] [address] [place] [address] Aidan Mckeon MD Shortness of breath; Dizziness; Tachycardia; Chronic hypertension 09/10/2024 Travel 09/10/2024 11:30 AM HEALTH PROFESSIONAL Office Visit [facility] [address] [place] [address] Aidan Mckeon MD Shortness of breath (Primary Dx); Dizziness; Tachycardia; Chronic hypertension from Last 3 Months Allergies Active Allergy Reactions Criticality Noted Date Comments Noah Inhibitors Cough Medium 02/24/2014 Metronidazole Nausea and/or Vomiting 06/28/2024 Medications * Be aware that medications may not be up to date on this document. Alwaysverify current medications with the patient. Medication Sig Dispensed Refills Start Date End Date Status ValACYclovir HCl (VALTREX PO) 1 tablet Active oxybutynin (DITROPAN) 5 MG tablet Take 1 (one) tablet by mouth 2 times daily Active estradiol (ESTRACE) 1 MG tablet Take 1 (one) tablet by mouth once daily Active DULoxetine (Cymbalta) 60 MG capsule 1 (one) capsule 2 times daily Active ARIPiprazole (Abilify) 15 MG tabletIndication s:Major Depressive Disorder Take 1 (one) tablet by mouth once daily Reasons: Major Depressive Disorder 30 tablet 5 06/28/2024 Active busPIRone (Buspar) 15 MG tabletIndication s:Anxiety Disorder Take 1 (one) tablet by mouth 2 times daily Reasons: Anxiety Disorder 60 tablet 5 06/28/2024 06/28/2025 Active esomeprazole (NexIUM) 20 MG capsule Take 1 (one) capsule by mouth 2 times daily 06/25/2024 Active metFORMIN ER 24hr (Glucophage XR) 500 MG tablet Take 1 (one) tablet by mouth once daily 03/31/2024 Active metoprolol succinate XL 24hr (Toprol XL) 50 MG tablet Take 1 (one) tablet by mouth once daily 06/02/2024 Active Progesterone 100 MG capsule Take 1 (one) capsule by mouth at bedtime Active cyanocobalamin (Vitamin B-12) injection INJECT ONE ML INTRAMUSCULARLY every 30 DAYS 08/10/2024 Active Active Problems Problem Noted Date Diagnosed Date Sleep apnea-like behavior 09/17/2024 Assessment & Plan (09/17/2024 11:06 PM HEALTH PROFESSIONAL): Referral placed to sleep medicine Counseled on weight loss Dyspnea on exertion 04/07/2024 Assessment & Plan (09/17/2024 11:06 PM HEALTH PROFESSIONAL): Overall, symptoms seem to be suggestive of exercise-induced asthma that has significantly gotten worse since her COVID-19 illness. Suspect there is a component of underlying EMMETT playing a role here as well. Certainly her weight is also a contributing factor Requesting complete pulmonary function testing, 6MWT, eosinophil and IgE levels, allergen panel Discussed with her empiric ICS/LABA therapy vs waiting for confirmatory diagnosis on above testing as to not cloud PFTs. Patient rather hold off for now to ensure accurate diagnosis made Referral placed sleep medicine Counseled on weight loss, currently on Ozempic Follow-up back in clinic in 8 weeks for re-evaluation. Depending on above workup and symptoms we will discuss starting maintenance inhaler regimen Dysfunctional uterine bleeding 08/06/2019 Vaginitis and vulvovaginitis 08/06/2019 Chronic interstitial cystitis 08/06/2019 Chronic maxillary sinusitis 08/06/2019 Cobalamin deficiency 08/06/2019 Dysuria 08/06/2019 Essential hypertension 08/06/2019 Fatigue 08/06/2019 Gastroesophageal reflux disease 08/06/2019 Genital herpes simplex 08/06/2019 Overview (09/07/2024): on Valacyclovir 500mg QD; follows with OBGYRochelle Jauregui Malaise and fatigue 08/06/2019 Migraine 08/06/2019 Multiple joint pain 08/06/2019 Backache 08/06/2019 Headache 08/06/2019 Neck pain 08/06/2019 Obesity 08/06/2019 Palpitations 08/06/2019 Paronychia of finger 08/06/2019 Postmenopausal state 08/06/2019 Overview (09/07/2024): on Estradiol 1mg QDl; follows with OBGYN Dr. Jauregui Premenstrual tension syndrome 08/06/2019 Retention of urine [...] 09/07/2024 High thyroid stimulating hormone (TSH) level 4 09/07/2024 Prediabetes 03/31/2024 09/07/2024 Acute upper respiratory infection 08/06/2019 08/20/2019 Anxiety 08/06/2019 02/20/2023 Apnea 08/06/2019 09/17/2024 Acute maxillary sinusitis 08/06/2019 Major depression, single episode 08/06/2019 02/20/2023 Mixed anxiety and depressive disorder 08/06/2019 02/20/2023 Mixed bipolar I disorder 08/06/201907/2022 Moderate recurrent major depression 08/06/2019 02/20/2023 Otitis media 08/06/2019 10/15/2024 Pharyngitis 08/06/2019 08/20/2019 Severe episode of recurrent major depressive disorder, without psychotic features 05/10/2019 Immunizations Name Administration Dates Next Due INFLUENZA VACCINE, TRIV. (AF LURIA, FLUZONE TRIVALENT; 6MO+) (IIV3) 07/31/2015 DTP, HISTORIC VACCINE 04/26/1987, 984,04/24/1982, 982,1981 FLU VACCINE TRI IIV3 SPLIT I M (FLUVIRIN) 06/15/2014,06/14/2013,07/20/2012, 011 INFLUENZA VACCINE, QUADR. (F LUZONE; FLULAVAL; FLUARIX; AFLURIA QUADRIVALENT; 6MO+), 0.5 ML (IIV4) 07/09/2018 INFLUENZA VACCINE, TRIV. (FL UZONE; FLULAVAL; FLUARIX; AFLURIA TRIVALENT; 6MO+), 0.5 ML (IIV3) 07/29/2017,06/27/2016,07/30/2015 MMR VACCINE 05/09/1992,02/06/1983 MODERNA SARS-COV-2 COVID-19 VACCINE 0.25ML 10/29/2021 POLIO OPV 04/26/1987, 4,04/24/1982, 982,1981 TD (AGE 8-ADULT) 08/04/1997 Social History Tobacco Use Types Packs/Day [...] Comments Blood Pressure 117/82 11/15/2024 5:01 PM HEALTH PROFESSIONAL Pulse 84 11/15/2024 5:15 PM HEALTH PROFESSIONAL Temperature 36.7 C (98 F) 11/15/2024 1:51 PM HEALTH PROFESSIONAL Respiratory Rate 17 11/15/2024 5:15 PM HEALTH PROFESSIONAL Oxygen Saturation 100% 11/15/2024 5:15 PM HEALTH PROFESSIONAL Inhaled Oxygen Concentration 100% 06/24/2018 1 :33 PM CDT Weight 122.5 kg (270 lb) 11/15/2024 1:51 PM HEALTH PROFESSIONAL Height 152.4 cm (5') 11/15/2024 1:51 PM HEALTH PROFESSIONAL Body Mass Index 52.73 11/15/2024 1:51 PM HEALTH PROFESSIONAL Functional Status Functional Status Response Date of [...] person have difficulty concentrating/remembering/making decisions? No 05/13/2019 Plan of Treatment Upcoming Encounters Date Type Department Care Team (Late st Contact Info) Description 12/07/2024 2:30 PM HEALTH PROFESSIONAL Office Visit [facility] Medical [facility] - Family Medicine [address] [place] [address] Haley Valadez MD [address] [place] [address] Kelsie Huffman DO [address] [place] [address] 12/15/2024 4:20 PM CDT Office Visit [facility] Behavioral Health [address] [place] [address] Adam Joe, FISHING FLOATS ASSEMBLER-AUDIT CONTROL CLERK [address] [place] [address] 12/24/2024 8:00 AM CDT Appointment [facility] - Respiratory Therapy [address] [place] [address] Haley Valadez MD [address] [place] [phone] 12/24/2024 9:00 AM CDT Appointment [facility] - Respiratory Therapy [address] [place] [address] Haley Valadez MD [address] [place] [phone] 12/24/2024 10:30 AM CDT Appointment [facility] - CT Scan [address] [place], [place] [address] Haley Valadez MD [address] [place] [phone] 04/19/2025 10:30 AM CDT Office Visit [facility] Heart & Vascular Care [address] [place], [place] [address] Aidan Mckeon MD [address] [place] [address] Procedures Procedure Name Priority Date/Time Associated Diagnosis Comments TROPONIN-I HIGH SENSITIVE REFLEX 1HOUR Timed 11/15/2024 4:45 PM HEALTH PROFESSIONAL EKG 12-LEAD STAT 11/15/2024 3:46 PM HEALTH PROFESSIONAL Chest pain, unspecified type TROPONIN-I HIGH SENSITIVE BASELINE + 1HR STAT 11/15/2024 3:38 PM HEALTH PROFESSIONAL COMPREHENSIVE METABOLIC PANEL STAT 11/15/2024 3:38 PM HEALTH PROFESSIONAL CBC W AUTO DIFFERENTIAL STAT 11/15/2024 3:38 PM HEALTH PROFESSIONAL NM MYOCARD PERF REST STRESS Routine 10/07/2024 12:29 PM HEALTH PROFESSIONAL Shortness of breath Tachycardia STRESS TEST Routine 10/07/2024 11:48 AM HEALTH PROFESSIONAL Shortness of breath Tachycardia ECHO COMPLETE Routine 10/07/2024 10:10 AM HEALTH PROFESSIONAL Shortness of breath Tachycardia HOLTER MONITOR Routine 09/19/2024 Shortness of breath Tachycardia EKG 12-LEAD Routine 09/10/2024 Shortness of breath Dizziness Tachycardia Chronic hypertension LIPID PROFILE Routine 02/19/2023 12:14 PM CDT High risk medications (not anticoagulants) long-term use from Last 3 Months or Most Recently Relevant to Health Maintenance Results * TROPONIN-I HIGH SENSITIVE REFLEX 1HOUR (11/15/2024 4:45 PM HEALTH PROFESSIONAL) Pathologist [facility] Troponin I High Sensitive <3 <=14 ng/L 11/15/2024 5:20 PM HEALTH PROFESSIONAL [facility] Delta Troponin I HS 11/15/2024 5:20 PM HEALTH PROFESSIONAL [facility] Comment:Result exceeds linea rity range. A delta value is unable to be calculated. Blood BLOOD SPECIMEN / Unknown Venipuncture / Unknown 11/15/2024 4:45 PM HEALTH PROFESSIONAL 11/15/2024 4:50 PM HEALTH PROFESSIONAL Nesha Denise Crump FISHING FLOATS ASSEMBLER-AUDIT CONTROL CLERK LAB - HOP SEPARATOR RY ORDERABLES Performing Organization Address City/State/[facility] Co de Phone Number [facility] [address] * EKG 12-LEAD (11/15/2024 3:46 PM HEALTH PROFESSIONAL) Only the most recent of2 resultswithin the time period is included. Ventricular Rate 89 BPM [facility] Atrial Rate 89 BPM [facility] P-R Interval 156 ms [facility] QRS Duration ms 80 ms [facility] Q-T Interval ms 378 ms [facility] QTC Calculation (Bezet) 459 ms [facility] Calculated P [place] 42 degrees [facility] Calculated R [place] 32 degrees [facility] Calculated T [place] 29 degrees [facility] Interpretation EKG Normal sinus rhythm Normal ECG When compared with ECG of 23-APR-2018 22:07, No significant change was found Confirmed by MD MCKEON WALTER ([id number]) on 11/18/2024 3:55:41 PM [facility] 11/15/2024 3:46 PM HEALTH PROFESSIONAL 11/18/2024 3:55 PM HEALTH PROFESSIONAL Nesha AGUERO ECG ORDERABLE S Performing Organization Address City/[facility]/ZIP Co de Phone Number [facility] * TROPONIN-I HIGH SENSITIVE BASELINE + 1HR (11/15/2024 3:38 PM HEALTH PROFESSIONAL) [facility] Troponin I High Sensitive <3 <=14 ng/L 11/15/2024 4:08 PM HEALTH PROFESSIONAL [facility] Blood BLOOD SPECIMEN / Unknown Venipuncture / Unknown 11/15/2024 3:38 PM HEALTH PROFESSIONAL 11/15/2024 3:43 PM HEALTH PROFESSIONAL Nesha AGUERO LAB - HOP SEPARATOR RY ORDERABLES Performing Organization Address City/[facility]/ZIP Co de Phone Number [facility] [address] * (ABNORMAL) CBC W AUTO DIFFERENTIAL (11/15/2024 3:38 PM HEALTH PROFESSIONAL) [facility] WBC 8.0 4.0 - 10.7 x10E9/L 11/15/2024 3:48 PM HEALTH PROFESSIONAL [facility] RBC Count 4.75 3.90 - 5.20 x10E12/L 11/15/2024 3:48 PM HEALTH PROFESSIONAL [facility] Hemoglobin 11.3(L) 11.9 - 15.8 g/dL 11/15/2024 3:48 PM HEALTH PROFESSIONAL [facility] Hematocrit 36.7 34.8 - 46.1 % 11/15/2024 3:48 PM HEALTH PROFESSIONAL [facility] MCV 77.3(L) 80.0 - 98.0 fL 11/15/2024 3:48 PM HEALTH PROFESSIONAL [facility] MCH 23.8(L) 26.7 - 33.6 pg 11/15/2024 3:48 PM HEALTH PROFESSIONAL [facility] MCHC 30.8(L) 31.7 - 36.3 g/dL 11/15/2024 3:48 PM [facility] RDW-CV 15.7(H) 11.3 - 14.8 % 11/15/2024 3:48 PM [facility] Platelet Count 281 150 - 420 x10E9/L 11/15/2024 3:48 PM [facility] MPV 9.7 7.8 - 11.4 fL 11/15/2024 3:48 PM [facility] Neutrophil % 61.2 41.0 - 74.0 % 11/15/2024 3:48 PM [facility] Lymphocyte % 30.5 17.0 - 47.0 % 11/15/2024 3:48 PM [facility] Monocyte % 6.0 3.0 - 11.0 % 11/15/2024 3:48 PM [facility] Eosinophil % 1.5 0.0 - 7.0 % 11/15/2024 3:48 PM [facility] Basophil % 0.4 0.0 - 1.6 % 11/15/2024 3:48 PM [facility] Immature Granulocytes % 0.4 0.0 - 1.0 % 11/15/2024 3:48 PM [facility] Neutrophil Absolute 4.91 1.60 - 7.50 x10E9/L 11/15/2024 3:48 PM [facility] Lymphocyte Absolute 2.45 1.00 - 4.40 x10E9/L 11/15/2024 3:48 PM [facility] Monocyte Absolute 0.48 0.15 - 1.00 x10E9/L 11/15/2024 3:48 PM [facility] Eosinophil Absolute 0.12 0.00 - 0.60 x10E9/L 11/15/2024 3:48 PM [facility] Basophil Absolute 0.03 0.00 - 0.13 x10E9/L 11/15/2024 3:48 PM [facility] Blood BLOOD SPECIMEN / Unknown Venipuncture / Unknown 11/15/2024 3:38 PM HEALTH PROFESSIONAL 11/15/2024 3:43 PM HEALTH PROFESSIONAL Nesha Crump FISHING FLOATS ASSEMBLER-AUDIT CONTROL CLERK LAB - HEMATOL OGY ORDERABLES [facility] [address] [place] [address], [place] * (ABNORMAL) COMPREHENSIVE METABOLIC PANEL (11/15/2024 3:38 PM [facility]) [facility] Glucose 98 70 - 125 mg/dL 11/15/2024 4:08 PM [facility] Sodium 140 136 - 145 mmol/L 11/15/2024 4:08 PM [facility] Potassium 4.0 3.4 - 5.1 mmol/L 11/15/2024 4:08 PM [facility] Chloride 106 98 - 107 mmol/L 11/15/2024 4:08 PM [facility] CO2 27 22 - 29 mmol/L 11/15/2024 4:08 PM [facility] Calcium 9.88 8.4 - 10.2 mg/dL 11/15/2024 4:08 PM [facility] Anion Gap 7 6 - 16 mmol/L 11/15/2024 4:08 PM [facility] BUN 8.1(L) 9.8 - 20.1 mg/dL 11/15/2024 4:08 PM [facility] Creatinine 0.96 0.57 - 1.11 mg/dL 11/15/2024 4:08 PM [facility] Alkaline Phosphatase 111 40 - 150 U/L 11/15/2024 4:08 PM [facility] ALT 11 <=55 U/L 11/15/2024 4:08 PM [facility] AST 14 5 - 34 U/L 11/15/2024 4:08 PM [facility] Protein Total 7.2 6.4 - 8.3 gm/dL 11/15/2024 4:08 PM [facility] Albumin 3.6 3.4 - 4.8 gm/dL 11/15/2024 4:08 PM [facility] Globulin Total 3.6 2.6 - 4.0 gm/dL 11/15/2024 4:08 PM [facility] Albumin/Globulin Ratio 1.0 0.9 - 1.6 11/15/2024 4:08 PM [facility] Bilirubin Total 0.2 0.2 - 1.2 mg/dL 11/15/2024 4:08 PM [facility] eGFR 75(L) >90 mL/min/1.7 3m2 11/15/2024 4:08 PM HEALTH PROFESSIONAL [facility] Comment:The GFR result was c alculated using the updated CKD-EPI Creatinine Equation (2020). Blood BLOOD SPECIMEN / Unknown Venipuncture / Unknown 11/15/2024 3:38 PM HEALTH PROFESSIONAL 11/15/2024 3:43 PM HEALTH PROFESSIONAL Nesha Crump FISHING FLOATS ASSEMBLER-AUDIT CONTROL CLERK LAB - HOP SEPARATOR RY ORDERABLES [facility] [address] [place], [place] [address] * NM MYOCARD PERF REST STRESS (10/07/2024 12:29 PM HEALTH PROFESSIONAL) Anatomical Region Laterality Modality Chest Nuclear Medicine 10/07/2024 1:02 PM HEALTH PROFESSIONAL Impressions 2024 6:09 AM HEALTH PROFESSIONAL IMPRESSION: Normal myocardial perfusion scan. > Interpreting Provider: Marti Nava MD on 2024 6:09 AM Narrative 2024 6:09 AM HEALTH PROFESSIONAL PROCEDURE: NM MYOCARD PERF REST STRESS, DATE/TIME OF EXAM: 10/07/2024 12:29 PM, LOCATION [facility] [place] INDICATION: R06.02: Shortness of breath R00.0: Tachycardia, [...] STRESS, DATE/TIME OF EXAM: 2:29 PM, LOCATION [facility] INDICATION: R06.02: Shortness of breath R00.0: Tachycardia, [...] Marti Nava MD on 2024 6:09 AM Aidan Mckeon MD NM ORDERABLES * STRESS TEST Treadmill (10/07/2024 11:48 AM HEALTH PROFESSIONAL) Predicted METS 9.2 METS [facility] V [...] Laterality Modality Ultrasound Narrative 2024 1:03 PM HEALTH PROFESSIONAL Stress: A pharmacological stress test was performed [...] ischemia. Nuclear images reported under separate cover. Aidan Mckeon MD CARDIAC SERVICES CUP ID * ECHO COMPLETE (10/07/2024 10:10 AM HEALTH PROFESSIONAL) LV EDV A2C 100 ml [facility] CV [...] Region Laterality Modality Ultrasound 10/07/2024 9:44 AM HEALTH PROFESSIONAL Narrative 10/20/2024 9:50 AM HEALTH PROFESSIONAL Summary * Left ventricular systolic function is [...] 9:44 AM Patient Status: O/P Study Site: [facility] Primary Location: [facility] EStudy Info Exam Type: ECHO COMPLETE Indications R06.02 - Shortness of breath R00.0 - Tachycardia Procedure(s) * A complete 2D, color Doppler, spectral Doppler, and M-Mode transthoracic echocardiogram was performed. Staff Referring Physician: Aidan Mckeon Ordering Provider: Aidan Mckeon Attending Physician: Aidan Mckeon Door Liner: Lilia Camacho [facility] Left Ventricle Left ventricle is normal in [...] 19 ml/m2 16-34 Report Signatures Finalized by Aidan Mckeon on 10/20/2024 09:50 AM Procedure Note Aidan Mckeon MD - 10/20/2024 Summary * Left [...] 9:44 AM Patient Status: O/P Study Site: [facility] Primary Location: [facility] EStudy Info Exam Type: ECHO COMPLETE Indications R06.02 - Shortness of breath R00.0 - Tachycardia Procedure(s) * A complete 2D, color Doppler, spectral Doppler, and M-Modetransthoracic echocardiogram was performed. Staff Referring Physician: Aidan Mckeon Ordering Provider: Aidan Mckeon Attending Physician: Aidan Mckeon Door Liner: Lilia Camacho [facility] Left Ventricle Left ventricle is normal in [...] (2D) 24 % 27-45 LV EF (2D Teichbhavyaz) 52 % 54-74 LV Diastolic Volume (4C [...] 19 ml/m2 16-34 Report Signatures Finalized by Aidan Mckeon on 10/20/2024 09:50 AM Aidan Mckeon MD ECHO CUPID * HOLTER MONITOR (09/19/2024) Aidan Mckeon MD CARDIAC SERVICES ORD ERABLES * (ABNORMAL) LIPID PROFILE (02/19/2023 12:14 PM CDT) Cholesterol 201(H) <200 mg/dL 02/19/2023 7:13 PM [...] 9.5 ...................... 7.0 3X AVERAGE...................>23........................>11 Adam Joe APRN-AUDIT CONTROL CLERK LAB - CHEMISTR Y ORDERABLES [facility] [address] [place], [place] [address] from Last 3 Months or Most Recently Relevant to Health Maintenance Advance Directives * Full Code (Latest Code Status on File) Date Activated Date Inactivated Comments 05/10/2019 3:58 PM 05/13/2019 11:39 AM * Full Code Date Activated Date Inactivated Comments 09/19/2014 4:44 PM 09/20/2014 1:35 PM Care Teams Mule Rider Relationship Specialty Start Date End Date Telma Noel APRN-CNP [address] [place] [address] PCP - General Nurse Practitioner Family 09/10/24 Haley Valadez MD [address] [place] [id number] Physician Pulmonary Disease 09/17/24
--- OUTSIDE RECORDS SUMMARY | 2024-11-28 00:51 | XMS_ITS | Data Portability ---
Author Organization [place] - [facility] Family Practice Address [address] [place] [address] Care Team Providers Care Computer Systems Design Analyst Name Role Phone PRIMO MILTON Primary Care Provider Assessment Encounter Date Assessment Date Assessment LastModified by Organization Details LastModified Time 04/01/2024 04/01/2024 Vel is a 43 year old female presenting to establish care. Patient is to get labs in 3 months, will call with results and further plan of care. [email or web address] Not available 04/01/2024 16:35:58 05/18/2024 05/18/2024 43 yo female enters with cough, sore throat, shortness of breath with exertion, chest discomfort with deep inspiration for the past 2 days. Patient denies vomiting and reports occasional mild diarrhea. No rashes of any kind. 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. [email or web address] Not available 05/18/2024 10:03:29 Plan of Treatment Reminders Order Date Submit Date Provider Last Modified By Organization Details Last Modified Time Details Appointments None recorded. Lab rapid SARS CoV 2 Ag, QL IA, respiratory specimen 2023 [facility], [address] [place] [address], [id number], 4 10:16:41 rapid flu (A+B) 2023 024 [facility], [address] [place] [address], [phone], 4 10:17:42 Referral None recorded. Procedures None recorded. Surgeries None recorded. Imaging MAMMO, screening, bilateral 2023 024 [facility] (Scheduling), [address], [place], [address], 4 04:27:15 Medication Orders Medrol (Catalino) 4 mg tablets in a dose pack 2023 [facility] [address], [place], [id number], 4 11:22:20 Zithromax Z-Catalino 250 mg tablet 2023 [facility] [address], [address] [place] [address], [id number], 4 11:22:20 Wegovy 0.25 mg/0.5 mL subcutaneou s pen injector 2023 [facility] 1 [facility] [address], [address] [place] [address], [id number], 4 09:16:32 esomeprazol e magnesium 20 mg tablet,amer[place] yed release 2023 T[facility] [address], [address], [place], [id number], 4 11:28:00 Patient TargetsNo targets recorded. Patient Instructions Encounter Date Encounter Id Patient Instructions Last Modified By Organization Details Last Modified Time 04/01/2024 [id number] advance directives: care instructions [email or web address] Not available 04/01/2024 16:51:57 INFLUENZA VACCIN E TD/TDAP PNEUMONIA VACCINE SHINGLES MAMMOGRAM: Last Mammogram __ DEXA SCAN CERVICAL SCREENING/PELVIC EXAMINATION COLORECTAL SCREENING: Last Colonoscopy DEPRESSION SCREENING BMI NUTRITION PHYSICAL ACTIVITY VISION ALCOHOL USE TOBACCO USE LUNG CANCER SCREENING SEXUALLY ACTIVE HEPATITIS C SCREENING GLUCOSE SCREENING LIPID SCREENING [email or web address] Not available 04/01/2024 15:57:53 Reason for Referral None Reported. Results Created Date Observation Date Name Description Value Unit Range Abnormal Flag Note LastModifiedBy Organization Detail LastModifiedTime 01/23/20 19 01/23/2019 vitam in D, 25-hy droxy , total , serum vitamin D, 25-hydroxy 25.1 NG/mL 30.0-1 00.0 low Vitam in D defic iency has been defin ed by the Insti tute of Medic ine and an Endoc rine Socie ty pract ice guide line as a level of serum 25-OH vitam in D less than 20 ng/mL (1,2) . The Endoc rine Socie ty went on to formerly [facility] er defin e vitam in D insuf ficie ncy as a level betwe en 21 and 29 ng/mL (2). 1. IOM (Inst itute of Medic ine). 2009. Kole ry refer ence intak es for calci um and D. Rony urbano [place]: The [facility] [employer] . 2. Surekha page MF, Ricarda sofia [place], Suly off-F mejiaar i ESTRADA, et al. Evalu ation , treat ment, and preve ntion of vitam in D defic iency : an Endoc rine Socie ty clini narciso pract ice guide line. JCEM. 2010; 96(7) :1911 -30. Perfo rmed at: [facility] [place] [address] Lab Direc tor: Nikos green PhD, Phone : [phone] Not Available [facility] (Lab) [address], [place], [address], 01/23/2019 08:14:28 01/23/20 19 01/22/2019 TSH, serum or plasm a TSH (thy stim horm) 0.015 mIU/m L 0.465- 4.68 critical low High doses of Bioti n can cause lower than expec maru value s. Great er than 10% bias may occur . Sugge st recol lecti on of test after the patie nt has disco ntinu ed bioti n for 7-10 days. Not Available [facility] (Lab) [address], [place], [address], 01/22/2019 16:06:48 01/23/20 19 01/22/2019 CMP, serum or plasm a CO2 (carbon dioxide) 26 mmol/ L 22-30 Not Available [facility] (Lab) [address], [place], [address], 01/22/2019 15:36:49 01/23/20 19 01/22/2019 CMP, serum or plasm a sodium (Na) 141 mmol/ L 136-14 5 Not Available [facility] (Lab) [address], [place], [address], 01/22/2019 15:36:49 01/23/20 19 01/22/2019 CMP, serum or plasm a potassium (K) 3.7 mmol/ L 3.5-5. 1 Not Available [facility] (Lab) [address], [place], [address], 01/22/2019 15:36:49 01/23/20 19 01/22/2019 CMP, serum or plasm a chloride 108 mmol/ L 98-107 high Not Available [facility] (Lab) [address], [place], [address], 01/22/2019 15:36:49 01/23/20 19 01/22/2019 CMP, serum or plasm a aniongap 10.7 mmol/ l 10-22 Not Available [facility] (Lab) [address], [place], [address], 01/22/2019 15:36:49 01/23/20 19 01/22/2019 CMP, serum or plasm a urea nitrogen (BUN) 9 mg/dL 7-17 Not Available [facility] (Lab) [address], [place], [address], 01/22/2019 15:36:49 01/23/20 19 01/22/2019 CMP, serum or plasm a creatinine, blood 0.90 mg/dL 0.52-1 .04 Not Available [facility] (Lab) [address], [place], [address], 01/22/2019 15:36:49 01/23/20 19 01/22/2019 CMP, serum or plasm a BUN/crea 10.0 7-25 Not Available [facility] (Lab) [address], [place], [address], 01/22/2019 15:36:49 01/23/2001/22/2019 CMP, serum or plasm a total protein 7.3 g/dL 6.3-8. 2 Not Available [facility] (Lab) [address], [place], [address], 01/22/2019 15:36:49 01/23/2001/22/2019 CMP, serum or plasm a albumin 4.1 g/dL 3.3-5. 0 Not Available [facility] (Lab) [address], [place], [address], 01/22/2019 15:36:49 01/23/2001/22/2019 CMP, serum or plasm a agratio 1.3 0.8-1. 80 Not Available [facility] (Lab) [address], [place], [address], 01/22/2019 15:36:49 01/23/2001/22/2019 CMP, serum or plasm a globulin 3.2 1.4-4. 8 Not Available [facility] (Lab) [address], [place], [address], 01/22/2019 15:36:49 01/23/2001/22/2019 CMP, serum or plasm a calcium,bloo d 9.2 mg/dL 8.4-10 .2 Not Available [facility] (Lab) [address], [place], [address], 01/22/2019 15:36:49 01/23/2001/22/2019 CMP, serum or plasm a bilirubin,to cesar 0.3 mg/dL 0.2-1. 3 Not Available [facility] (Lab) [address] , [place], [address], 01/22/2019 15:36:49 01/23/20 19 01/22/2019 CMP, serum or plasm a AST (SGOT) 14 U/L 14-36 Not Available [facility] (Lab) [address] [facility] [address] , [place], [address], 01/22/2019 15:36:49 01/23/20 19 01/22/2019 CMP, serum or plasm a ALT(SGPT) 23 U/L 13-69 Not Available [facility] (Lab) [address] [facility] [address] , [place], [address], 01/22/2019 15:36:49 01/23/20 19 01/22/2019 CMP, serum or plasm a alkaline phos 107 U/L 38-126 Not Available [facility] (Lab) [address] [facility] [address] , [place], [address], 01/22/2019 15:36:49 01/23/20 19 01/22/2019 CMP, serum or plasm a glucose blood 157 mg/dL 74-106 high Not Available [facility] (Lab) [address] , [place], [address], 01/22/2019 15:36:49 01/23/2001/22/2019 CMP, serum or plasm a est.glomerul ar filtration rate >60 60- Unit of Measu remen t for the Glome rular Filtr ation Rate (GFR) = mL/mi n/1.7 3m2 GFR is calcu lated based on [facility]ni [facility] (Afri can Ameri can or Non-A frica n Ameri can) and Sex from the [facility] shira trati on infor matio n. Refer ence Range s: [place] ge GFR for healt hy Adult s: > 60 mL/mi n/1.7 3m2 Chron ic Kidne y Disea se: 15 - 60 mL/mi n/1.7 3m2 Kidne y Failu re: < 15 mL/mi n/1.7 3m2 GFR is not recom luis d for patie nts great er than 70 years old. Refer ence Range s are not avail able for ages under 18 years . Patie nts <18 years of age will be resul maru with TNP (Test Not Perfo rmed) Not Available [facility] (Lab) [address], [place], [address], 01/22/2019 15:36:49 01/23/20 19 01/22/2019 CBC w/ auto diff MO% 5.3 % 0.0-15 .0 Not Available [facility] (Lab) [address], [place], [address], 01/22/2019 14:51:02 01/23/20 19 01/22/2019 CBC w/ auto diff white blood count 6.7 10*3/ uL 4.8-10 .8 Not Available [facility] (Lab) [address], [place], [address], 01/22/2019 14:51:02 01/23/20 19 01/22/2019 CBC w/ auto diff ne% 65.1 % 37-77 Not Available [facility] (Lab) [address], [place], [address], 01/22/2019 14:51:02 01/23/20 19 01/22/2019 CBC w/ auto diff ly% 26.9 % 24-44 Not Available [facility] (Lab) [address], [place], [address], 01/22/2019 14:51:02 01/23/20 19 01/22/2019 CBC w/ auto diff eo% 1.7 % 0.0-6. 0 Not Available [facility] (Lab) [address], [place], [address], 01/22/2019 14:51:02 04/19/20 19 01/22/2019 CBC w/ auto diff ba% 1.0 % 0.0-2. 0 Not Available [facility] (Lab) [address], [place], [address], 01/22/2019 14:51:02 01/23/20 19 01/22/2019 CBC w/ auto diff ne# 4.4 10*3_ /uL 1.8-7. 9 Not Available [facility] (Lab) [address], [place], [address], 01/22/2019 14:51:02 01/23/20 19 01/22/2019 CBC w/ auto diff ly# 1.8 10*3/ uL 1.1-4. 2 Not Available [facility] (Lab) [address], [place], [address], 01/22/2019 14:51:02 01/23/20 19 01/22/2019 CBC w/ auto diff MO# 0.4 10*3/ uL 0.1-1. 0 Not Available [facility] (Lab) [address], [place], [address], 01/22/2019 14:51:02 01/23/20 19 01/22/2019 CBC w/ auto diff eo# 0.1 10*3/ uL 0.0-0. 5 Not Available [facility] (Lab) [address], [place], [address], 01/22/2019 14:51:02 01/23/20 19 01/22/2019 CBC w/ auto diff ba# 0.1 10*3/ uL 0.0-0. 2 Not Available [facility] (Lab) [address], [place], [address], 01/22/2019 14:51:02 01/23/20 19 01/22/2019 CBC w/ auto diff rbccnt 4.82 10*6/ uL 4.20-5 .40 Not Available [facility] (Lab) [address], [place], [address], 01/22/2019 14:51:02 01/23/20 19 01/22/2019 CBC w/ auto diff hemoglobin 13.7 g/dL 12-16 Not Available [facility] (Lab) [address], [place], [address], 01/22/2019 14:51:02 01/23/20 19 01/22/2019 CBC w/ auto diff hematocrit 42.3 % 37.0-4 7.0 Not Available [facility] (Lab) [address], [place], [address], 01/22/2019 14:51:02 01/23/20 19 01/22/2019 CBC w/ auto diff MCV 87.7 fL 81-99 Not Available [facility] (Lab) [address], [place], [address], 01/22/2019 14:51:02 01/23/20 19 01/22/2019 CBC w/ auto diff MCH 28.5 pg 30.0-3 3.2 low Not Available [facility] (Lab) [address], [place], [address], 01/22/2019 14:51:02 01/23/20 19 01/22/2019 CBC w/ auto diff MCHC 32.5 g/dL 33.0-3 7.0 low Not Available [facility] (Lab) [address], [place], [address], 01/22/2019 14:51:02 01/23/20 19 01/22/2019 CBC w/ auto diff RDW 13.7 % 11.5-1 4.5 Not Available [facility] (Lab) [address], [place], [address], 01/22/2019 14:51:02 01/23/20 19 01/22/2019 CBC w/ auto diff auto. platelet count 204 10*3/ uL 130-40 0 Not Available [facility] (Lab) [address], [place], [address], 01/22/2019 14:51:02 01/23/20 19 01/22/2019 CBC w/ auto diff MPV 8.2 fL 7.4-10 .4 Not Available [facility] (Lab) [address], [place], [address], 01/22/2019 14:51:02 02/02/20 19 02/02/2019 T3, free, serum or plasm a triiodothyro nine,free,se rum 3.4 pg/mL 2.0-4. 4 [facility] [address] [place], [place] [id number] Lab Direc tor: Nikos green PhD, Phone : [phone] Not Available [facility] (Lab) [address], [place], [address], 02/02/2019 07:11:11 02/02/2002/02/2019 thyro id perox idase (tpo) Ab, serum thyroid peroxidase (tpo) Ab 9 IU/mL 0-34 [facility] [address] [place], [place] [id number] Lab Direc tor: Nikos green PhD, Phone : [phone] Not Available [facility] (Lab) [address], [place], [address], 02/02/2019 07:11:11 02/02/2002/02/2019 HbA1c (hemo globi n A1c), blood hemoglobin A1C 5.4 % 4.8-5. 6 . . Predi abete s: 5.7 - 6.4 Diabe randall: >6.4 Glyce chris contr ol for adult s with diabe randall: <7.0 [facility]: [facility] [address] [place] [address] Lab Direc tor: Nikos green PhD, Phone : [phone] Not Available [facility] (Lab) [address], [place], [address], 02/02/2019 06:10:17 02/02/20 19 02/01/2019 T4, free, serum free T4 1.27 NG/dL 0.78-2 .19 Not Available [facility] (Lab) [address], [place], [address], 02/01/2019 10:39:48 02/02/20 19 02/01/2019 TSH, serum or plasm a TSH (thy stim horm) 0.030 mIU/m L 0.465- 4.68 low High doses of Bioti n can cause lower than expec maru value s. Great er than 10% bias may occur . Tamra mcdaniel recol lecti on of test after the patie nt has disco ntinu ed bioti n for 7-10 days. Not Available [facility] (Lab) [address], [place], [address], 02/01/2019 10:39:07 07/25/20 19 07/25/2019 cultu re, urine cultur ===== ===== ===== ===== ===== ===== ===== ===== ===== ===== ===== ===== ===== ===== ===== ===== ===== ===== ===== ===== ===== ===== ===== ===== CULTU RE NO.: [id number] Exam Statu s: Final Exam Type: URINE CULTU RE ===== ===== ===== ===== ===== ===== ===== ===== ===== ===== ===== ===== ===== ===== ===== ===== ===== ===== ===== ===== ===== ===== ===== ===== Cultu re Repor t: Organ ism #01 Esche valerie a coli (escc ol) Antib iotic s escco l Achie vable Achie vable (01) Dosag e Serum Level Urine Level mcg/m l mcg/m l Ampic illin >=32 R 009M Cefaz nathaniel <=4 S 009M Tobra mycin <=1 S 009M Trime thopr im/Sullivan lfame <=20 S 009M Nitro furan toin <=16 S 009M Ampic illin /Sulb actam 16 I 009M Cefep brianna <=1 S 009M ESBL Neg - 009M Aztre onam <=1 S 009M Ceftr iaxon e <=1 S 009M Piper acill in/Ta zobac <=4 S 009M Levof loxac in <=0.1 2 S 009M Cefta zidim e <= 1 S 009M Ertap enem <=0.5 S 009M Genta micin <=1 S 009M Tigec yclin e <=0.5 S 009M Merop enem <=0.2 5 S 009M Not Available [facility] (Lab) [address] [facility] [address] , [place], [address], 07/27/2019 11:23:21 06/05/20 20 06/05/2020 pap test, thinp rep, cervi narciso Pap normal Not Available [facility] [address] [facility] [address], [place], [address], 04/01/2024 17:17:33 05/18/20 24 05/18/2024 rapid flu (A+B) influenza A negati ve negati ve normal Not Available [facility] [address] [place], [address], 05/18/2024 10:12:59 05/18/20 24 05/18/2024 rapid flu (A+B) influenza B negati ve negati ve normal Not Available [facility] [address] [place] [address], [address], 05/18/2024 10:12:59 05/18/20 24 05/18/2024 rapid flu (A+B) control accept able normal Not Available [facility] [address] [place] [address], [address], 05/18/2024 10:12:59 05/18/20 24 05/18/2024 rapid SARS CoV 2 Ag, QL IA, respi rator y speci men id now rapid sars cov 2 Ag negati ve negati ve normal Not Available [facility] [address] [place] [address], [address], 05/18/2024 10:12:40 06/15/20 24 06/15/2024 rapid SARS CoV 2 Ag, QL IA, respi rator y speci men id now rapid sars cov 2 Ag negati ve posit janna Not Available [facility] [address] , [place], [address], 06/15/2024 13:56:30 02/05/20 19 02/04/2019 US, head [facility] [address] [place] [id number] PATRIC Bliss REPORT ------ ------ ------ ------ ------ ------ ------ ------ ------ ------ ------ ---- NAME: VEL BRIGGS Room #: : 1980 Accoun t #: [id number] Bed #: Age: 38 Patien t Type: RAD Exam Date/T brianna: Sex: F 2017 08:36: 00 Order #: Access ion #: Exam Descri ption: [id number] US-HEA D-NECK SFT TISSUE Dictat ed by: Dl koroma Physic kenny: TATIANA THOMAS Attend ing Physic kenny: TATIANA THOMAS Primar y Care Physic kenny:TATIANA SALCEDO ------ ------ ------ ------ ------ ------ ------ ------ ------ ------ ------ ---- FINAL REPORT EXAM: THYROI D SONOGR AM DATE OF EXAMIN ATION: 02/05/20 19 8:36 hours COMPAR KEO: None. HISTOR Y: The patien t is38 years old with abnorm al thyroi d labs showin g hypoth yroidi sm. Irregu lar heartb eat. Clinic al workin g diagno sis of goiter . TECHNI QUE: Graysc manny and color- flow imagin g of the thyroi d was obtain ed. FINDIN GS: The isthmu s is 3.8 millim eters in thickn ess. Otherw ise unrema rkable . The right lobe of the thyroi d is estima maru at 4.1 x 1.5 x 1.5 centim eters in size. Echote xture isnorm al. No solid or cystic lesion s are identi fied. The left lobe of the thyroi d is estima maru at 4.0 x 1.3 x 1.8 centim eters in size. Echote xture is normal . There is a small 3 mm cyst in the mid lobe of the thyroi d. There is a solid mass lesion isoech oic to the remain kiara of the gland left mid thyroi d lobe 1.63 x 0.97 x 1.80 cm in size. Most likely an adenom a. Follow -up thyroi d sonogr am in six months recomm ended for stabil ity evalua tion. IMPRES PARESH: Single solid nodule left lobe of the thyroi d. Isoech oic to the remain kiara of the gland. Six-mo nth follow -up thyroi d sonogr am recomm ended. Page 1 of 2 [facility] [address] [place] [address] [phone] PATRIC Ruthy REPORT ------ ------ ------ ------ ------ ------ ------ ------ ------ ------ ------ ---- NAME: VEL BRIGGS Room #: : 1980 Accoun t #: [id number] Bed #: Age: 38 Patien t Type: RAD Exam Date/T brianna: Sex: F 2017 08:36: 00 Order #: Access ion #: Exam Descri ption: [id number] US-HEA D-NECK SFT TISSUE Dictat ed by: Dl Hernandez M.D. Orderi Physic kenny: TATIANA THOMAS Attend ing Physic kenny: TATIANA THOMAS [facility] Physic kenny:TATIANA SALCEDO ------ ------ ------ ------ ------ ------ ------ ------ ------ ------ ------ ---- FINAL REPORT Additi onal simple cyst left lobe of thyroi baltazar lomas on Workst ation ID: [id number] MMO Dictat ing Physic kenny: Dl lomas and electr onical ly signed by Dl Hernandez M.D. on 02/05/20 19 8:47 CC: TATIANA THOMAS, TATAINA ZAMORANO Page 2 of 2 [id number] [facility] (Imaging) [address], [place], [address], 01/22/2023 07:28:50 09/03/20 21 09/03/2021 XR, chest , 1 view No observ ation record ed. [id number] [facility] (Radiology) [address], [place], [address], 01/22/2023 07:28:50 09/04/20 21 09/04/2021 CT, angio gram, chest , w/o contr ast No observ ation record ed. [id number] [facility] (Radiology) [address], [place], [address], 01/22/2023 07:28:50 09/04/20 21 09/04/2021 XR, chest , 1 view No observ ation record ed. [id number] [place] [address] (Radiology) [address], [place], [address], 01/22/2023 07:28:50 06/18/20 22 06/18/2022 XR, chest No observ ation record ed. [id number] [place] [address] (Emergency Room) [address], [place], [address], 01/22/2023 07:28:50 04/05/20 24 04/05/2024 XR, chest No observ ation record ed. [email or web address] (Radiology) [address] , [place], [address], 04/06/2024 10:04:26 06/17/20 24 06/17/2024 XR, chest , 2 view No observ ation record ed. [address] (Sds) [address] , [place], [address], 06/17/2024 09:51:15 Result Notes None recorded. Problems Name Problem SNOMED Code Status Onset Date Resolution Date Notes Provider Name and Address Organization Details Recorded Time Apnea 9198287 Active Not Available [facility] 3 07:02:33 Rheumato id factor detected 845665697 Active Not Available [facility] 3 07:02:34 Sacroili ac joint pain 019908704 Completed Not Available [facility] 3 07:02:34 Mixed anxiety and depressi ve disorder 507950264 Active Not Available [facility] 3 07:02:34 Complain ing of - cough Completed Not Available [facility] 3 07:02:34 Genital herpes simplex 41359700 Active on Valacycl ovir 500mg QD; follows with OBGYN Dr. Jauregui Not Available [facility] 3 07:02:34 Multiple joint pain 28356199 Active RF elevated , on Naproxen 500mg BID prn Not Available [facility] 3 07:02:34 Postmeno pausal state 61492158 Active on Estradio l 1mg QDl; follows with OBGYN Dr. Jauregui Not Available [facility] 3 07:02:35 Prediabe randall 980614473 Active 2023 PRIMO MILTON NP [address] [place], [address] , [facility] 4 12:09:00 Thyroid stimulat ing hormone level above referenc e range 505691465 Active 2023 PRIMO MILTON NP [address] [place], [address] , [facility] 4 12:09:39 Vitamin D deficien cy 72917646 Active 2023 PRIMO MILTON NP [address] [place], [address] , [facility] 4 09:22:48 Gastroes ophageal reflux disease without esophagi tis 370998136 Active 2023 PRIMO MILTON NP [address] [place], [address] , [facility] 4 16:03:36 Tachycar jelly 6900211 Active 2023 PRIMO MILTON NP [address] [place], [address] , [facility] 4 11:10:21 Dyspnea on exertion 32632738 Active 2023 PRIMO MILTON NP [address] [place], [address] , [facility] 4 09:08:03 Acute urinary tract infectio n 435390745 Active 2023 PRIMO MILTON NP [address] [place], [address] , [facility] 4 11:05:50 Acute bronchit is 31829731 Active 2023 LOLITA SANCHEZ, [facility] [address] [place], [address] , [facility] 4 09:46:00 Anemia 951102827 Active 2023 PRIMO MILTON NP [address] [place], [address] , [facility] 4 10:24:34 Attentio n deficit hyperact ivity disorder 539024443 Active 2023 PRIMO MILTON NP [address] [place], [address] , [facility] 4 12:04:26 Sore throat 561820094 Active 2023 PRIMO MILTON NP [address] [place], [address] , [facility] 4 13:56:20 Backache 827798744 Active Not Available [facility] 3 16:24:28 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 Not Available [facility] 3 16:24:28 Chronic intersti tial cystitis 773743012 Active Not Available [facility] 3 16:24:28 Abdomina l pain 58520011 Active Not Available [facility] 3 16:24:28 Gastroes ophageal reflux disease 605521750 Active Not Available [facility] 3 16:24:28 Headache 09997248 Active Not Available [facility] 3 16:24:28 Hemorrha ge of rectum and anus 912591756 Active Not Available [facility] 3 16:24:29 Retentio n of urine 279754579 Active Not Available [facility] 3 16:24:29 Dizzines s and giddines s 112511118 Active Not Available [facility] 3 16:24:29 Malaise and fatigue 020947434 Active Not Available [facility] 3 16:24:29 Syncope and collapse 922769020 Active Not Available [facility] 3 16:24:29 Depressi ve disorder 83091765 Active Not Available [facility] 3 16:24:29 Chronic maxillar y sinusiti s 79304227 Active Not Available [facility] 3 16:24:29 Migraine 63090716 Active Not Available [facility] 3 16:24:29 Pharyngi tis [id number] Active Not Available [facility] 3 16:24:29 Obesity [id number] Active Not Available [facility] 3 16:24:29 Paronych ia of finger 564669748 Active Not Available [facility] 3 16:24:29 Dysuria 33487330 Active Not Available [facility] 3 16:24:29 Acute upper respirat ory infectio n 96224559 Active Not Available [facility] 3 16:24:29 [facility] hyperten paresh 68881501 Active Not Available [facility] 3 16:24:30 Acute cholecys titis 40402160 Active Not Available [facility] 3 16:24:30 Otitis media 51492177 Active Not Available [facility] 3 16:24:30 Urethral abscess 99566696 Active Not Available [facility] 3 16:24:30 Acute maxillar y sinusiti s 28457104 Active Not Available [facility] 3 16:24:30 Urinary tract infectio us disease 13294102 Active Not Available [facility] 3 16:24:30 Cholecys titis 09747144 Active Not Available [facility] 3 16:24:30 Palpitat ions 59991688 Active Not Available [facility] 3 16:24:30 Skin sensatio n disturba nce 50666146 Active Not Available [facility] 3 16:24:30 Trichomo nal vulvovag initis 28140761 Active Not Available [facility] 3 16:24:31 Neck pain 73629824 Active Not Available [facility] 3 16:24:31 Fatigue 05375177 Active Not Available [facility] 3 16:24:31 Urge incontin ence of urine 67182567 Active Not Available [facility] 3 16:24:31 Problem Notes None recorded. 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 Not Available [facility] 10/14/19 23 07:06:26 4 Hysterectomy completed Not Available [facility] 023 07:06:26 Imaging Results Imaging Date Name Status LastModified by Organiz ation Details LastModified Time 02/04/2019 US, head completed [id number] [place] [address] (Imaging) [address], [place], [address], 01/22/2023 07:28:50 09/03/2021 XR, chest, 1 view completed [id number] [address] [place] [address] (Radiology) [address], [place], [address], 01/22/2023 07:28:50 09/04/2021 CT, angiogram, chest, w/o contrast completed [id number] [address] [place] [address] (Radiology) [address], [place], [address], 01/22/2023 07:28:50 09/04/2021 XR, chest, 1 view completed [id number] [address] [place] [address] (Radiology) [address], [place], [address], 01/22/2023 07:28:50 06/18/2022 XR, chest completed [id number] 700 [facility] (Emergency Room) [address], [place], [address], 01/22/2023 07:28:50 04/05/2024 XR, chest completed [facility] (Radiology) [address], [place], [address], 04/06/2024 10:04:26 06/17/2024 XR, chest, 2 view completed [id number] [facility] (Sds) [address], [place], [address], 06/17/2024 09:51:15 Procedure Notes None recorded. Medical Equipment None Reported. Allergies Allergen ID Allergen Name Allergen Category Reaction Reaction Severity Criticality Documentation Date Start Date Code Code System Note Provider Name and Address Organization Details Recorded Time 02102 Product containin g angiotens in-conver ting enzyme inhibitor (product) medicatio n cough moderate Not available 10/12/20222013 84810 009 SNOMED [facility] 15:42:31 Medications Name Sig Start Date Stop Date Status Note LastModified by Organization Details LastModified Time Prescripti on - Prior Authorizat ion Request 05/18 completed Not Available Not Available Not Available cyclobenza aspen 10 mg tablet 04/01 completed Not Available Not Available Not Available amoxicilli n 500 mg capsule TK ONE C PO TID WF 04/01 completed Not Available Not Available Not Available fluconazol e 100 mg tablet TK ONE AND SS TS 150MG PO ONE DOSE active Not Available Not Available No t Available buspirone 5 mg tablet TAKE 2 TABLET BY MOUTH TWICE DAILY 04/01 completed Not Available Not Available Not Available bupropion HCl SR 150 mg tablet,12 hr sustained- release TAKE 1 TABLET(S ) BY MOUTH TWICE DAILY 07/30 completed Not Available Not Available Not Available oxybutynin chloride ER 15 mg tablet,ext ended release 24 hr TAKE ONE TABLET BY MOUTH TWICE DAILY active Not Available Not Available No t Available naproxen 375 mg tablet TAKE 1 TABLET BY MOUTH TWICE DAILY WITH MEALS FOR 14 DAYS 04/01 completed Not Available Not Available Not Available clindamyci n HCl 300 mg capsule TK 1 C PO BID FOR 7 DAYS active Not Available Not Available No t Available oxybutynin chloride ER 10 mg tablet,ext ended release 24 hr TK 1 T PO ONCE D 05/29 completed Not Available Not Available Not Available azithromyc in 250 mg tablet TAKE 2 TABLETS BY MOUTH ON DAY 1, THEN TAKE 1 TABLET DAILY ON DAYS 2-5 active Not Available Not Available No t Available fluconazol e 150 mg tablet Take 1 tablet every day by oral route for 1 day. active Not Available Not Available No t Available metoprolol succinate ER 50 mg tablet,ext ended release 24 hr Take 1 tablet every day by oral route as directed , for tachycar jelly. active Not Available Not Available No t Available valacyclov ir 1 gram tablet take 1 tablet BY MOUTH EVERY DAY active Not Available Not Available No t Available medroxypro gesterone 2.5 mg tablet TK ONE T PO ONCE DAILY 04/01 completed Not Available Not Available Not Available hydrocodon e 5 mg-acetami nophen 325 mg tablet 04/01 completed Not Available Not Available Not Available phenazopyr idine 200 mg tablet TK 1 T PO TID AFTER MEALS FOR 2 DAYS 04/01 completed Not Available Not Available Not Available metronidaz ole 0.75 % (37.5 mg/5 gram) vaginal gel I 1 APL VAGINALL Y QHS FOR 5 NTS 04/01 completed Not Available Not Available Not Available prednisone 20 mg tablet TK 1 T PO ONCE D FOR 5 DAYS active Not Available Not Available No t Available clonazepam 0.5 mg tablet TAKE 1 TABLET BY MOUTH TWICE DAILY NEEDED 04/01 completed Not Available Not Available Not Available metoprolol succinate ER 100 mg tablet,ext ended release 24 hr 04/01 completed Not Available Not Available Not Available sertraline 100 mg tablet Take 2 tablets every day by oral route. 07/30 completed Not Available Not Available Not Available Cleocin 100 mg vaginal suppositor y 04/01 completed Not Available Not Available Not Available metronidaz ole 250 mg tablet TK 1 T PO QID 04/01 completed Not Available Not Available Not Available Elmiron 100 mg capsule TAKE ONE CAPSULE BY MOUTH EVERY 8 HOURS ON AN EMPTY STOMACH active Not Available Not Available No t Available sumatripta n 50 mg tablet TAKE 1 TABLET BY MOUTH AT ONSET OF HEADACHE MAY REPEAT IN 2 HOURS MAX OF 4 TABLETS IN 24 HOURS 04/01 completed Not Available Not Available Not Available topiramate 25 mg tablet TAKE ONE TABLET BY MOUTH EVERY DAY FOR mood 04/01 completed Not Available Not Available Not Available phentermin e 37.5 mg tablet TAKE 1 TABLET BY MOUTH DAILY active Not Available Not Available No t Available divalproex 500 mg tablet,del ayed release One tablet at bedtime by mouth daily 10/07 completed Not Available Not Available Not Available valacyclov ir 500 mg tablet TK 1 T PO Q 24 H active Not Available Not Available No t Available sulfametho xazole 800 mg-trimeth oprim 160 mg tablet TK 1 T PO BID 04/01 completed Not Available Not Available Not Available tramadol 50 mg tablet 04/01 completed Not Available Not Available Not Available amoxicilli n 500 mg tablet Take 1 tablet 3 times a day by oral route with meals for 10 days. 06/24 completed Not Available Not Available Not Available propranolo l 10 mg tablet TAKE 1 TABLET BY MOUTH TWICE DAILY 04/01 completed Not Available Not Available Not Available alprazolam 0.25 mg tablet Take 1 tablet every day by oral route as needed. 05/27 completed Not Available Not Available Not Available estradiol 1 mg tablet TAKE ONE TABLET BY MOUTH EVERY DAY active Not Available Not Available No t Available sulfacetam shruti sodium 10 % eye drops INSTILL 1 TO 2 DROPS IN AFFECTED EYES EVERY 3 TO 4 HOURS FOR 5 DAYS active Not Available Not Available No t Available benzonatat e 100 mg capsule TK 1 C PO Q 8 H PRN 04/01 completed Not Available Not Available Not Available hydrocodon e 7.5 mg-acetami nophen 325 mg tablet TAKE 1 TABLET BY MOUTH SIX HOURS NEEDED FOR PAIN CONTROL 04/01 completed Not Available Not Available Not Available cephalexin 500 mg capsule 04/01 completed Not Available Not Available Not Available oseltamivi r 75 mg capsule TK 1 C PO ONCE DAILY FOR 10 DAYS 04/01 completed Not Available Not Available Not Available buspirone 30 mg tablet TAKE 1/2 TABLET BY MOUTH TWICE DAILY active Not Available Not Available No t Available ranitidine 150 mg tablet Take 1 tablet twice a day by oral route. 04/01 completed Not Available Not Available Not Available buspirone 10 mg tablet TAKE 1 TABLET THREE TIMES DAILY 05/18 completed Not Available Not Available Not Available dextroamph etamine-am phetamine 20 mg tablet TAKE ONE TABLET BY MOUTH TWICE DAILY active Not Available Not Available No t Available lisinopril 10 mg tablet TAKE 1 TABLET BY MOUTH EVERY DAY active Not Available Not Available No t Available divalproex ER 500 mg tablet,ext ended release 24 hr TAKE 1 TABLET BY MOUTH AT BEDTIME active Not Available Not Available No t Available polymyxin B sulfate 10,000 unit-trime thoprim 1 mg/mL eye drops INT 1 GTT IN OS Q 4 H WA FOR 7 DAYS 04/01 completed Not Available Not Available Not Available progestero ne micronized 200 mg capsule TK ONE C PO ONCE HS active Not Available Not Available No t Available oxybutynin chloride ER 5 mg tablet,ext ended release 24 hr TK 1 T PO ONCE A DAY 04/01 completed Not Available Not Available Not Available estradiol 2 mg tablet TK ONE T PO ONCE DAILY active Not Available Not Available No t Available hydrocodon e 5 mg-acetami nophen 500 mg tablet TK 1 T PO Q 4 H PRN active Not Available Not Available No t Available zolpidem 5 mg tablet TAKE 1 TABLET BY MOUTH AT BEDTIME 04/01 completed Not Available Not Available Not Available ergocalcif tammy (vitamin D2) 1,250 mcg (50,000 unit) capsule 05/18 completed Not Available Not Available Not Available irbesartan 150 mg tablet TAKE 1 TABLET BY MOUTH EVERY DAY 04/01 completed Not Available Not Available Not Available Ativan 0.5 mg tablet Take 1 tablet every day by oral route as needed. 2012 active as needed Not Available Not Available Not Available methylpred nisolone 4 mg tablets in a dose pack TAKE 6 TABLETS BY MOUTH ON DAY ONE, THEN DECREASE BY ONE TABLET DAILY UNTIL ALL TAKEN. TAKE WITH FOOD active Not Available Not Available No t Available albuterol sulfate HFA 90 mcg/actuat ion aerosol inhaler INHALE TWO PUFFS BY MOUTH EVERY 4 HOURS NEEDED FOR shortnes s of breath active Not Available Not Available No t Available oxybutynin chloride 5 mg tablet TAKE 1 TABLET BY MOUTH TWICE DAILY 04/01 completed Not Available Not Available Not Available ondansetro n 4 mg disintegra ting tablet active Not Available Not Available Not Available metformin ER 500 mg tablet,ext ended release 24 hr Take 1 tablet every day by oral route as directed for 30 days, for elevated a1c. active Not Available Not Available No t Available sertraline 50 mg tablet Take 1 tablet every day by oral route. 04/01 completed Not Available Not Available Not Available naproxen 500 mg tablet TK 1 T PO BID 04/01 completed Not Available Not Available Not Available progestero ne micronized 100 mg capsule TAKE ONE CAPSULE BY MOUTH AT BEDTIME active Not Available Not Available No t Available amoxicilli n 875 mg-potassi um clavulanat e 125 mg tablet Take 1 tablet every 12 hours by oral route for 10 days. 04/01 completed Not Available Not Available Not Available buspirone 15 mg tablet 04/01 completed Not Available Not Available Not Available tobramycin 0.3 %-dexameth asone 0.1 % eye drops,susp ension INSTILL 1 DROP INTO BOTH EYES FOUR TIMES A DAY 04/01 completed Not Available Not Available Not Available esomeprazo le magnesium 20 mg capsule,de layed release TAKE ONE CAPSULE BY MOUTH EVERY DAY active Not Available Not Available No t Available hydroxyzin e pamoate 25 mg capsule TAKE 1 CAPSULE BY MOUTH EVERY 8 HOURS NEEDED 04/01 completed Not Available Not Available Not Available Estrace 0.01% (0.1 mg/gram) vaginal cream 04/01 completed Not Available Not Available Not Available aripiprazo le 10 mg tablet Take 1 tablet every day by oral route. 04/01 completed Not Available Not Available Not Available aripiprazo le 30 mg tablet TAKE 1/2 TABLET BY MOUTH DAILY active Not Available Not Available No t Available Vitamin D3 25 mcg (1,000 unit) capsule Take 1 capsule every day by oral route. 01/27 completed Not Available Not Available Not Available Stress Formula with Zinc tablet TAKE 1 TABLET BY MOUTH DAILY 04/01 completed Not Available Not Available Not Available Premarin 0.3 mg tablet 04/01 completed Not Available Not Available Not Available aripiprazo le 5 mg tablet TAKE 1 TABLET EVERY DAY 05/18 completed Not Available Not Available Not Available bupropion HCl XL 150 mg 24 hr tablet, extended release TK 1 T PO QD 04/01 completed Not Available Not Available Not Available metoprolol tartrate 25 mg tablet TAKE ONE TABLET TWICE DAILY 04/01 completed Not Available Not Available Not Available topiramate 50 mg tablet TAKE 1 TABLET BY MOUTH AT BEDTIME 04/01 completed Not Available Not Available Not Available nitrofuran toin monohydrat e/macrocry stals 100 mg capsule TAKE ONE CAPSULE BY MOUTH EVERY TWELVE HOURS FOR FIVE DAYS 05/18 completed Not Available Not Available Not Available duloxetine 30 mg capsule,de layed release Take 1 capsule every day by oral route as directed . active Not Available Not Available No t Available duloxetine 60 mg capsule,de layed release Take 60 mg every day by oral route as directed . active Not Available Not Available No t Available Abilify 1/2 tab daily 01/27 completed Not Available Not Available Not Available oxybutynin 15 mg extended release 05/29 completed Not Available Not Available Not Available cholecalci ferol (vitamin D3) 1,250 mcg (50,000 unit) capsule Take 1 capsule every week by oral route as directed , for vitamin D deficien cy. 2023 active Not Available Not Available Not Avai lable Anecream 4 % topical APPLY EXTERNAL LY TO THE AFFECTED AREA THREE TIMES DAILY DIRECTED FOR 3 DAYS active Not Available Not Available No t Available Fluvirin 4856-4174 45 mcg (15 mcg x 3)/0.5 mL intramuscu lar suspension ADM 0.5ML UTD active Not Available Not Available No t Available Fluvirin 8998-1067 45 mcg (15 mcg x 3)/0.5 mL intramuscu lar suspension INJECT 0.5 ML INTRAMUS CULARLY DIRECTED . 04/01 completed Not Available Not Available Not Available Fluvirin 4764-9646 45 mcg (15 mcg x 3)/0.5 mL intramuscu lar suspension 04/01 completed Not Available Not Available Not Available Vitamin B12 1 tab daily 07/30 completed Not Available Not Available Not Available esomeprazo le magnesium 20 mg tablet,del ayed release Take 1 tablet twice a day by oral route as directed , for acid reflux. 2023 active Not Available Not Available Not Avai lable Fluvirin 2286-8879 45 mcg (15 mcg x 3)/0.5 mL intramuscu lar suspension ADM 0.5ML IM UTD 04/01 completed Not Available Not Available Not Available Fluvirin (PF) 45 mcg(15 mcg x3)/0.5 mL intramuscu lar syringe ADM 0.5ML IM UTD 04/01 completed Not Available Not Available Not Available Fluzone Quad (PF ) 60 mcg(15 mcgx4)/0.5 mL intramuscu lar syringe INJECT 0.5ML INTRAMUS CULAR FOR 1 DOSE 04/01 completed Not Available Not Available Not Available Wegovy 0.25 mg/0.5 mL subcutaneo us pen injector Take 0.25mg subcutan eously every week 2023 active Not Available Not Available Not Avai lable Vitals Date Recorded Body mass index (BMI) Body height Oxygen saturation Oxygen saturation in Arterial blood by Pulse oximetry Heart rate Body temperature Body weight Systolic blood pressure Diastolic blood pressure Provider Name and Address Organization Details Last Updated DateTime 9 44.6 kg/m2 154.94 cm 98 % 98 % 87 /min 97.2 [degF] 440128. 88 g 118 mm[Hg] 78 mm[Hg] Not Available [facility] 3 07:00:57 Date Recorded Body mass index (BMI) Body height Oxygen saturation Oxygen saturation in Arterial blood by Pulse oximetry Heart rate Respiratory rate Body temperature Body weight Systolic blood pressure Diastolic blood pressure Provider Name and Address Organization Details Last Updated DateTime 9 43.7 kg/m2 154.94 cm 99 % 99 % 104 /min 16 /min 97.6 [degF] 536169. 29 g 143 mm[Hg] 88 mm[Hg] Not Available [facility] 3 07:00:57 Date Recorded Body mass index (BMI) Body height Oxygen saturation Oxygen saturation in Arterial blood by Pulse oximetry Heart rate Body temperature Body weight Systolic blood pressure Diastolic blood pressure Provider Name and Address Organization Details Last Updated DateTime 9 42.8 kg/m2 154.94 cm 98 % 98 % 98 /min 96.8 [degF] 950808. 95 g 112 mm[Hg] 68 mm[Hg] Not Available [facility] 3 07:00:58 Date Recorded Body height Body mass index (BMI) Body weight Body temperature Heart rate Respiratory rate Oxygen saturation Oxygen saturation in Arterial blood by Pulse oximetry Pain severity - 0-10 verbal numeric rating [Score] - Reported Systolic blood pressure Diastolic blood pressure Provider Name and Address Organization Details Last Updated DateTime 4 157.48 cm 48.7 kg/m2 908197. 57 g 97.4 [degF] 99 /min 18 /min 98 % 98 % 0 132 mm[Hg] 94 mm[Hg] Carmel Gresham [facility] 4 15:55:51 Date Recorded Body height Body mass index (BMI) Body weight Body temperature Heart rate Respiratory rate Oxygen saturation Oxygen saturation in Arterial blood by Pulse oximetry Pain severity - 0-10 verbal numeric rating [Score] - Reported Systolic blood pressure Diastolic blood pressure Provider Name and Address Organization Details Last Updated DateTime 4 157.48 cm 48.7 kg/m2 651869. 97 g 98.3 [degF] 97 /min 20 /min 97 % 97 % 0 128 mm[Hg] 74 mm[Hg] Fei Boykin [facility] 4 09:15:05 Social History Question Answer Notes LastModified by Organizat ion Details LastModified Time Tobacco Smoking Status Never Smoker Not Available [facility] 10/14/2022 07:06:06 Do You Have An Advance Directive? No [id number] Information not available 10/14/2022 What Is Your Level Of Alcohol Consumption? None [id number] Information not available 10/14/2022 What Is Your Level Of Caffeine Consumption? Moderate [id number] Information not available 10/14/2022 How Much Tobacco Do You Chew? None MIGRATION.[id number] Information not available 10/14/2022 What Type Of Diet Are You Following? REGULAR [id number] Information not available 10/14/2022 Which Illicit Or Recreational Drugs Have You Used? Denies MIGRATION.[id number] Information not available 10/14/2022 Do You Or Have You Ever Used E-cigarettes Or Vape? 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 No MIGRATION.[id number] Information not available 10/14/2022 Are You In An Abusive/frighteni ng Relationship? No MIGRATION.[id number] Information not available 10/14/2022 Do You Feel Safe At Home Yes MIGRATION.[id number] Information not available 10/14/2022 Number Of Dairy Servings Per Day 1 [id number].[id number] Information not available 10/14/2022 What Was The Date Of Your Most Recent Tobacco Screening? 05/18/2024 [email or web address] Information not available 05/18/2024 Do You Or Have You Ever Used Smokeless Tobacco? Never Used Smokeless Tobacco MIGRATION.[id number] Information not available 10/14/2022 How Much Tobacco Do You Smoke? No MIGRATION.[id number] 3076 Information not available 10/14/2022 Do You Feel Stressed (tense, Restless, Nervous, Or Anxious, Or Unable To Sleep At Night)? [id number] Information not available 04/01/2024 Do You Use Any Illicit Or Recreational Drugs? No Information not available 04/01/2024 Do You Use Sunscreen Routinely? Yes MIGRATION.[id number] Information not available 10/14/2022 How Many Years Have You Smoked Tobacco? 0 MIGRATION.480575 0276 Information not available 10/14/2022 Do You Or Have You Ever Used Any Other Forms Of Tobacco Or Nicotine? No Information not available 04/01/2024 Sex: Unknown Functional Status Question Answer Note LastModified by Organizat ion Details LastModified Time What is your exercise level? Occasional [id number] Information not available 10/14/2022 Mental Status None recorded. Family History Relationship Description Onset Age of this Age Resolved Age Notes LastModified by Organization Details LastModified Time Mother Well adult [id number] Not available 10/14/2022 06:58:36 Father Well adult [id number] Not available 10/14/2022 06:58:36 Medical History Condition Response RHEUMATIC FEVER N PROSTATE N RADIATION / CHEMOTHERAPY N EYE PROBLEMS N CAROTID BLOCKAGE N BACK / NECK PROBLEMS Y BOWEL PROBLEMS N DEPRESSION (INCLUDING POST ) N FEMALE PROBLEMS / INFECTIONS N HAVE YOU BEEN HOSPITALIZED OR SEEN IN [facility] ER IN THE PAST YEAR ? N THYROID DISEASE N ATHEROSCLEROSIS N ULCERS N BREAST PROBLEMS N DIALYSIS N OBESITY Y ANEURYSM N OSTEOPOROSIS N URINARY/BLADDER/KIDNEY PROBLEMS N ARTHRITIS Y USE OF BLOOD THINNERS N SKIN PROBLEMS N GASTROINTESTINAL DISORDER N HEARTBURN / REFLUX N BLOOD CLOTS N HEPATITIS / LIVER DISEASE N ASTHMA N PULMONARY DISEASE N GOUT N SLEEP DISORDER N HERPES Y DEMENTIA N VASCULAR DISEASE N DIZZINESS N KIDNEY DISEASE N HYPERTENSION N CARDIAC ARRHYTHMIA N CANCER: SPECIFY N ANXIETY DISORDER Y PNEUMONIA N PULMONARY EMBOLISM N BRONCHITIS N TUBERCULOSIS N Gynecological History Statement/Question Response Date of Last Mammogram Date of Last Mammogram Date of LMP Menses Monthly N Date of Last Pap Current Control Method Hysterectom y Obstetrics History GPAL:G 0 P 0 0 0 0 Immunizations Vaccine Type Date Status Note Provider Nam e and Address Organization Details Recorded Time Influenza, high-dose, trivalent, PF 3 completed Carmel saldana, [facility] 04/01/2024 15:40:43 Influenza, split virus, trivalent, preservative 2 completed Not Available [facility] 10/12/2022 16:25:22 Influenza, split virus, trivalent, preservative 1 completed Not Available [facility] 10/12/2022 16:25:22 Influenza, split virus, trivalent, PF 7 completed Carmel saldana, [facility] 04/01/2024 15:40:43 Influenza, split virus, trivalent, preservative 5 completed Carmel Gresham null, [facility] 04/01/2024 15:40:43 Past Encounters Encounter ID Performer Location Encounter Start Date Encounter Closed Date Diagnosis/Indication Diagnosis SNOMED-CT Code Diagnosis ICD10 Code Diagnosis Note [id number] [facility] [address] [place] [address] 11/29/2015 00:00:00 11/29/2015 18:26:50 [id number] [facility] [address] [place] [address] 04/10/2016 00:00:00 04/10/2016 14:07:26 [id number] [facility] [address] [place] [address] 05/17/2016 00:00:00 05/17/2016 13:21:42 [id number] [facility] [address] [place] [address] 09/18/2016 00:00:00 09/18/2016 20:38:11 [id number] [facility] [address] [place] [address] 10/07/2017 00:00:00 10/07/2017 09:49:51 [id number] [facility] [address] [facility] [address] 12/04/2017 00:00:00 12/04/2017 18:20:20 [id number] [facility] [address] [facility] [address] 07/30/2018 00:00:00 07/30/2018 15:49:45 [id number] [facility] [facility] [address] [facility] [address] 01/27/2019 00:00:00 01/27/2019 16:21:19 [id number] [facility]. [facility] [address] [facility] [address] 02/08/2019 00:00:00 02/08/2019 17:41:08 [id number] [facility] [address] [facility] [address] 05/27/2019 00:00:00 05/27/2019 17:20:05 [id number] PRIMO MILTON NP [facility] [address] [facility] [address] 04/01/2024 15:37:56 04/01/2024 17:05:14 Body mass index 40+ - severely obese [id number] Z68.42 Patient believes her weight is causing her joint paint, difficulty with activities , and fatigueEnc ouraged patient to cut out teas and sodas and switch to waterEncou raged patient to prepare meals ahead of time since time is a factor and causing poor diet choicesExe rcising when possible, even if it is going on a walk on breaksPati ent was given samples of wegovy (4 pens) Adult heal th examination [id number] Z00.00 Labs prior to visit, reviewed with patientPRIYA chen le Vitamin D deficiency [id number] E55.9 Vitamin D: 21.4Patien t is to start Vitamin D 50,000unit s once weekly for [address] imulating hormone level above reference range [id number] R94.6 TSH 5.37Free T4 1.07Will recheck in 3 months, if abnormal again will begin levothyrox ine Prediabetes [id number] R7 3.03 Hemoglobin a1c 6.3Patient is to start metformin ER 500mg dailyWill check a1c again in 3 months Gastroesop hageal reflux disease without esophagitis [id number] K21.9 Patient has daily acid refluxShe says that nexium helps her symptoms and is requesting a refill Screening for malignant neoplasm of cervix [id number] Z12.4 Up to date. [place] [facility] [place] for malignant neoplasm of breast [id number] Z12.39 Pt has never had a mammogram, is agreeable, will order [id number] JOSEPH MEDINA DISP_CR [facility] [address] [place] [phone] 05/18/2024 09:00:55 05/18/2024 09:57:58 Acute bronchitis [id number] J20.9 Begin medication as directedfo llow up with regular doctor if not improved in 2 days Health Concerns Section Related Observation LastModified by Organization Carlos cool LastModified Time None Recorded Concern Status LastModified by Organization Details LastModified Time None Recorded Advance Directives Directive N: Payers Encounter Date Sequence Insurance Name Policy Number Policy Blake Covered Member ID Blake Member ID Guarantor Name 04/01/2024 1 [place] [employer] [place] [employer] Vel Briggs [id number] Vel Briggs 05/18/2024 1 [facility] DHSIMV Vel Briggs [id number] Vel García Briggs Notes Date Note Type Note Provider Name and Address Organization Details Recorded Time 04/01/2024 text/html Vel is a 43 year old female presenting to [facility]. Patient says she has concerns with her weight. She knows that she is overweight and she says that her weight just continues to gradually increase. She says that her joints are hurting, it is hard for her to do things, she gets out of breath easier, and she is always tired. Patient also is having daily acid reflux. She says that she was taking nexium before she changed insurances and it worked really well for her. Patient has no other concerns at this time. PRIMO MILTON NP [address] [place], [address], [facility] 04/01/2024 16:54:58 05/18/2024 text/html 43 yo female enters with cough, sore throat, shortness of breath with exertion, chest discomfort with deep inspiration for the past 2 days. Patient denies vomiting and reports occasional mild diarrhea. No rashes of any kind. 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. JOSEPH MEDINA [address] [place], [address], [facility] 05/18/2024 10:50:59 OBGyn Episode No OBEpisode recorded.
--- OUTSIDE RECORDS SUMMARY | 2024-11-28 00:51 | XMS_ITS | Clinical Summary ---
Author Organization [facility] Address [address] [place] [address] Care Team Providers Care Special Education Itinerant Teacher Name Role Phone Bert Telma PEOPLES-SUKI Primary Care Provider [phone] Haley Valadez MD Unavailable [phone] Source Comments [facility],non-owned Affiliates and Associated Physician Practices is amultiple site organization consisting of ambulatory clinics and hospital sitesin [place], [place], [place] and [place]. This disclosure is being madepursuant to the Care Everywhere program and may not contain all information available regarding this patient. Last updated 18.[facility] Allergies Active Allergy Reactions Criticality Noted Date [...] 09/17/2024 Assessment & Plan (09/17/2024 11:06 PM CUTTER ALUMINUM SHEET): Referral placed to sleep medicine Counseled on weight loss Dyspnea on exertion 04/07/2024 Assessment & Plan (09/17/2024 11:06 PM CUTTER ALUMINUM SHEET): Overall, symptoms seem to be suggestive of [...] (09/07/2024): on Valacyclovir 500mg QD; follows with OBGYN Dr. Asbery Malaise and fatigue 08/06/2019 Migraine 08/06/2019 Multiple joint pain 08/06/2019 Backache 08/06/2019 Headache 08/06/2019 Neck pain 08/06/2019 Obesity 08/06/2019 Palpitations 08/06/2019 Paronychia of finger 08/06/2019 Postmenopausal state 08/06/2019 Overview (09/07/2024): on Estradiol 1mg QDl; follows with OBGYRochelle Jauregui Premenstrual tension syndrome 08/06/2019 Retention of [...] major depressive disorder, without psychotic features 05/10/2019 Encounters Date Type Department Care Team Description 11/16/2024 Telephone [facility] Heart & Vascular Care [address], [address] [place] [address] Diandra Gambino, RECYCLING WORKER-CARE MANAGEMENT ASSISTANT Question 11/15/2024 3:29 PM [employer]TER [employer]IN[employer] SHEET - 11/15/2024 5:58 PM C[employer]TER ALUMINUM SHEET Emergency ER at [facility] 1 [place] [address] Nesha Crump, RECYCLING WORKER-CARE MANAGEMENT ASSISTANT Chest pain, unspecified type; Elevated blood pressure reading Discharge Disposition: Home or Self Care 11/15/2024 Travel 11/05/2024 Refill [facility] Health [address] [place] [address] Adam Joe, RECYCLING WORKER-CARE MANAGEMENT ASSISTANT Refill Request 10/29/2024 Telephone [facility] - Respiratory Therapy 1 [place] [address] Eve Carlson, CADD OPERATOR Preop Question (Pt. Stated, I have not had Covid. ) 10/18/2024 Telephone [facility] Heart & Vascular Care [address], [address] [place] [address] Gwen Mckeon MD General 10/15/2024 9:00 AM C[employer]INUM SHEET Office Visit [facility] Heart Vascular [facility] [address], [facility] [address] [place] [address] Diandra Gambino, RECYCLING WORKER-CARE MANAGEMENT ASSISTANT Shortness of breath (Primary Dx); Tachycardia; Dizziness; Chronic hypertension 10/13/2024 Telephone [facility] Heart Vascular [facility] [address], [facility] [address] [place] [address] Gwen Mckeon MD Results 2024 Travel 10/07/2024 11:00 AM [employer] SHE[employer] - 10/07/2024 11:59 PM [employer] SHE[employer] Hospital Encounter [facility] Cardiovascular Ultrasound [address] [place] [address] Gwen Mckeon MD Discharge Disposition: Home or Self Care 10/07/2024 9:00 AM C[employer]IN[employer] SHEET - 10/07/2024 10:59 AM [employer]UM SHE[employer] Hospital Encounter [facility] Cardiovascular Ultrasound 1 [place] [address] Gwen Mckeon MD Discharge Disposition: Home or Self Care 10/07/2024 8:59 AM C[employer] SHE[employer] Hospital Encounter [facility] - Nuclear Medicine 1 [place] [address] Gwen Mckeon MD Discharge Disposition: Home or Self Care 10/04/2024 Refill [facility] Health [address] [place] [address] Adam Joe, RECYCLING WORKER-CARE MANAGEMENT ASSISTANT MEDICATION REFILL 09/20/2024 Telephone [facility] Heart & Vascular Care [address], [facility] [address] [place] [address] Gwen Mckeon MD Results 09/20/2024 Orders Only [facility] Heart & Vascular Care [address], [facility] [address] [place] [address] Gwen Mckeon MD Shortness of breath; Tachycardia 09/17/2024 8:20 AM C[employer]TER [employer]INUM SHEET Office Visit [facility] Medical [facility] - Pulmonology [address], [address] [place] [address] Haley Valadez MD Dyspnea on exertion (Primary Dx); Sleep apnea-like behavior 09/17/2024 Telephone [facility] Heart & Vascular Care [address], [facility] [address] [place] [address] Gwen Mckeon MD Abnormal Ekg 09/14/2024 Travel 09/10/2024 11:30 AM C[employer]TER AL[employer]INUM SHEET Office Visit [facility] Heart & Vascular Care [address], [facility] [address] [place] [address] Gwen Mckeon MD Shortness of breath (Primary Dx); Dizziness; Tachycardia; Chronic hypertension 09/10/2024 Orders Only [facility] Heart & Vascular Care [address] [facility] [address], [facility] [address] [place] [address] Gwen Mckeon MD Shortness of breath; Dizziness; Tachycardia; Chronic hypertension 09/10/2024 Travel from Last 3 Months Immunizations Name Administration Dates Next Due INFLUENZA [...] Comments Blood Pressure 117/82 11/15/2024 5:01 PM [employer] Pulse 84 11/15/2024 5:15 PM [employer] SHE[employer] Temperature 36.7 C (98 F) 11/15/2024 1:51 PM [employer] SHE[employer] Respiratory Rate 17 11/15/2024 5:15 PM [employer] SHE[employer] Oxygen Saturation 100% 11/15/2024 5:15 PM [employer] Inhaled Oxygen Concentration 100% 06/24/2018 1 :33 PM CDT Weight 122.5 kg (270 lb) 11/15/2024 1:51 PM [employer] Height 152.4 cm (5') 11/15/2024 1:51 PM [employer] SHE[employer] Body Mass Index 52.73 11/15/2024 1:51 PM [employer] SHE[employer] Plan of Treatment Upcoming Encounters Date Type Department Care Team (Late st Contact Info) Description 12/07/2024 2:30 PM [employer] SHE[employer] Office Visit [facility] Medical [facility] - Family Medicine [address] [place] [address] Haley Valadez MD 1 [place] [address] Kelsie Huffman DO [facility] [place] [address] 12/15/2024 4:20 PM CDT Office Visit [facility] Behavioral Health 2 [place] [phone] Adam Joe, RECYCLING WORKER-CARE MANAGEMENT ASSISTANT [address] [place] [address] 12/24/2024 8:00 AM CDT Appointment [facility] Respiratory Therapy 1 [place] [address] Haley Valadez MD [address] [place] [phone] 12/24/2024 9:00 AM CDT Appointment [facility] Respiratory Therapy 1 [place], [place] [address] Haley Valadez MD 1 [place] [phone] 12/24/2024 10:30 AM CDT Appointment [facility] - CT Scan 1 [place], [place] [address] Haley Valadez MD 1 [place] [address] 04/19/2025 10:30 AM CDT Office Visit [facility] Heart & Vascular Care [address], [address] [place], [place] [address] Gwen Mckeon MD [address] [place] [address] Health Maintenance Due Date Last Done Comments MAMMOGRAM 1981 HIV SCREENING 1996 HEPATITIS C SCREENING 10/04/1999 HEPATITIS B VACCINE (1 of 3 - 19+ 3-dose series) 2000 DTAP/TDAP/TD VACCINES (7 - Td or Tdap) 08/04/2007 08/04/1997, 04/26/1987, 01/02/1984, Additional history exists COVID-19 VACCINE ( season) 2024 10/29/2021, 11/08/2020, 10/11/2020 INFLUENZA VACCINE (#1) 2024 8, 07/29/2017, 06/27/2016, Additional history exists DEPRESSION SCREENING 10/06/2024 08/15/2022, 07/28/2022, 02/28/2022 SCREENING FOR DIABETES 11/15/2027 , 02/19/2023, 02/19/2023, Additional history exists LIPID TESTING 02/20/2028 02/19/2023, 10/07, 05/12/2019 ZOSTER VACCINE (1 of 2) 2031 HIB VACCINE Aged Out No longer eligi ble based on patient's age to complete this topic HPV VACCINE Aged Out No longer eligi ble based on patient's age to complete this topic MENINGOCOCCAL (Group B) VACCINE Aged Out No longer eligible based on patient's age to complete this topic MENINGOCOCCAL VACCINE Aged Out No keshav teresa eligible based on patient's age to complete this topic PNEUMOCOCCAL VACCINE Aged Out No long er eligible based on patient's age to complete this topic Procedures Procedure Name Priority Date/Time Associated Diagnosis Comments TROPONIN-I HIGH SENSITIVE REFLEX 1HOUR Timed 11/15/2024 4:45 PM [employer] EKG 12-LEAD STAT 11/15/2024 3:46 PM [employer] SHEET Chest pain, unspecified type TROPONIN-I HIGH SENSITIVE BASELINE + 1HR STAT 11/15/2024 3:38 PM [employer] SHEET COMPREHENSIVE METABOLIC PANEL STAT 11/15/2024 3:38 PM [employer] SHE[employer] CBC W AUTO DIFFERENTIAL STAT 11/15/2024 3:38 PM [employer] SHEET NM MYOCARD PERF REST STRESS Routine 10/07/2024 12:29 PM [employer] SHEET Shortness of breath Tachycardia STRESS TEST Routine 10/07/2024 11:48 AM [employer] SHEET Shortness of breath Tachycardia ECHO COMPLETE Routine 10/07/2024 10:10 AM [employer] SHEET Shortness of breath Tachycardia HOLTER MONITOR Routine 09/19/2024 Shortness of breath Tachycardia EKG 12-LEAD Routine 09/10/2024 Shortness of breath Dizziness Tachycardia Chronic hypertension LIPID PROFILE Routine 02/19/2023 12:14 PM CDT High risk medications (not anticoagulants) long-term use from Last 3 Months or Most Recently Relevant to Health Maintenance Results * TROPONIN-I HIGH SENSITIVE REFLEX 1HOUR (11/15/2024 4:45 PM C[employer]TER [employer] SHE[employer]) Troponin I High Sensitive <3 <=14 ng/L 11/15/2024 5:20 PM C[employer]TER ALUMINUM SHEET [facility] Delta Troponin I HS 11/15/2024 5:20 PM C[employer]TER ALUMINUM SHEET [facility] Comment:Result exceeds linea rity range. A delta value is unable to be calculated. Blood BLOOD SPECIMEN / Unknown Venipuncture / Unknown 11/15/2024 4:45 PM [employer] SHEET 11/15/2024 4:50 PM [employer]IN[employer] SHEET Nesha AGUERO LAB - SUMMER BABYSITTER RY ORDERABLES [facility] [address] * EKG 12-LEAD (11/15/2024 3:46 PM C[employer]TER ALUMINUM SHEET) Only the most recent of2 resultswithin the time period is included. Ventricular Rate 89 BPM [facility] Atrial Rate 89 BPM [facility] P-R Interval 156 ms [facility] QRS Duration ms 80 ms [facility] Q-T Interval ms 378 ms [facility] QTC Calculation (Bezet) 459 ms [facility] Calculated P [place] 42 degrees [facility] Calculated R [place] 32 degrees [facility] Calculated T [place] 29 degrees [facility] Interpretation EKG Normal sinus rhythm Normal ECG When compared with ECG of 23-APR-2018 22:07, No significant change was found Confirmed by MD EMETERIO, GWEN ([id number]) on 11/18/2024 3:55:41 PM [facility] 11/15/2024 3:46 PM [employer] SHE[employer] 11/18/2024 3:55 PM [employer] SHEET Nesha AGUERO ECG ORDERABLE S Performing Organization Address [facility] Co de Phone Number [facility] * TROPONIN-I HIGH SENSITIVE BASELINE + 1HR (11/15/2024 3:38 PM CUTTER ALUMINUM SHEET) Pathologist [facility] Troponin I High Sensitive <3 <=14 ng/L 11/15/2024 4:08 PM CUTTER ALUMINUM SHEET [facility] Blood BLOOD SPECIMEN / Unknown Venipuncture / Unknown 11/15/2024 3:38 PM [employer]IN[employer] SHEET 11/15/2024 3:43 PM [employer]INUM SHEET Nesha AGUERO LAB - SUMMER BABYSITTER RY ORDERABLES Performing Organization Address City/[facility]/ZIP Co de Phone Number [facility] [address] [place] [address], [facility] * (ABNORMAL) CBC W AUTO DIFFERENTIAL (11/15/2024 3:38 PM CUTTER ALUMINUM SHEET) [facility] WBC 8.0 4.0 - 10.7 x10E9/L 11/15/2024 3:48 PM [facility]IN[employer] SHE[employer] AM [facility] RBC Count 4.75 3.90 - 5.20 x10E12/L 11/15/2024 3:48 PM [facility] Hemoglobin 11.3(L) 11.9 - 15.8 g/dL 11/15/2024 3:48 PM [facility] Hematocrit 36.7 34.8 - 46.1 % 11/15/2024 3:48 PM [facility] MCV 77.3(L) 80.0 - 98.0 fL 11/15/2024 3:48 PM [facility] MCH 23.8(L) 26.7 - 33.6 pg 11/15/2024 3:48 PM [facility] MCHC 30.8(L) 31.7 - 36.3 g/dL 11/15/2024 3:48 PM [facility] RDW-CV 15.7(H) 11.3 - 14.8 % 11/15/2024 3:48 PM [facility] Platelet Count 281 150 - 420 x10E9/L 11/15/2024 3:48 PM [facility] MPV 9.7 7.8 - 11.4 fL 11/15/2024 3:48 PM [facility] Neutrophil % 61.2 41.0 - 74.0 % 11/15/2024 3:48 PM [facility] Lymphocyte % 30.5 17.0 - 47.0 % 11/15/2024 3:48 PM [facility] Monocyte % 6.0 3.0 - 11.0 % 11/15/2024 3:48 PM [facility] Eosinophil % 1.5 0.0 - 7.0 % 11/15/2024 3:48 PM [facility] Basophil % 0.4 0.0 - 1.6 % 11/15/2024 3:48 PM [facility] Immature Granulocytes % 0.4 0.0 - 1.0 % 11/15/2024 3:48 PM [facility] Neutrophil Absolute 4.91 1.60 - 7.50 x10E9/L 11/15/2024 3:48 PM [facility] Lymphocyte Absolute 2.45 1.00 - 4.40 x10E9/L 11/15/2024 3:48 PM [facility] Monocyte Absolute 0.48 0.15 - 1.00 x10E9/L 11/15/2024 3:48 PM [facility] Eosinophil Absolute 0.12 0.00 - 0.60 x10E9/L 11/15/2024 3:48 PM [facility] Basophil Absolute 0.03 0.00 - 0.13 x10E9/L 11/15/2024 3:48 PM [facility] Blood BLOOD SPECIMEN / Unknown Venipuncture / Unknown 11/15/2024 3:38 PM [employer] SHE[employer] 11/15/2024 3:43 PM [employer] Nesha Crump RECYCLING WORKER-CARE MANAGEMENT ASSISTANT LAB - HEMATOL OGY ORDERABLES [facility] [address] * (ABNORMAL) COMPREHENSIVE METABOLIC PANEL (11/15/2024 3:38 PM CUTTER ALUMINUM SHEET) [facility] Glucose 98 70 - 125 mg/dL 11/15/2024 4:08 PM [facility] Sodium 140 136 - 145 mmol/L 11/15/2024 4:08 PM [facility] Potassium 4.0 3.4 - 5.1 mmol/L 11/15/2024 4:08 PM [facility] Chloride 106 98 - 107 mmol/L 11/15/2024 4:08 PM [facility] CO2 27 22 - 29 mmol/L 11/15/2024 4:08 PM [facility] Calcium 9.88 8.4 - 10.2 mg/dL 11/15/2024 4:08 PM [facility] Anion Gap 7 6 - 16 mmol/L 11/15/2024 4:08 PM [facility] BUN 8.1(L) 9.8 - 20.1 mg/dL 11/15/2024 4:08 PM [facility] Creatinine 0.96 0.57 - 1.11 mg/dL 11/15/2024 4:08 PM [facility] Alkaline Phosphatase 111 40 - 150 U/L 11/15/2024 4:08 PM [facility] ALT 11 <=55 U/L 11/15/2024 4:08 PM [facility] AST 14 5 - 34 U/L 11/15/2024 4:08 PM [facility] Protein Total 7.2 6.4 - 8.3 gm/dL 11/15/2024 4:08 PM [facility] Albumin 3.6 3.4 - 4.8 gm/dL 11/15/2024 4:08 PM [facility] Globulin Total 3.6 2.6 - 4.0 gm/dL 11/15/2024 4:08 PM [facility] Albumin/Globulin Ratio 1.0 0.9 - 1.6 11/15/2024 4:08 PM [facility] Bilirubin Total 0.2 0.2 - 1.2 mg/dL 11/15/2024 4:08 PM [facility] eGFR 75(L) >90 mL/min/1.7 3m2 11/15/2024 4:08 PM [facility] Comment:The GFR result was c alculated using the updated CKD-EPI Creatinine Equation (2020). Blood BLOOD SPECIMEN / Unknown Venipuncture / Unknown 11/15/2024 3:38 PM [employer] SHE[employer] 11/15/2024 3:43 PM [employer] Nesha Crump APRN-CARE MANAGEMENT ASSISTANT LAB - SUMMER BABYSITTER RY ORDERABLES Performing Organization Address City/State/[facility] Co de Phone Number [facility] [address] * NM MYOCARD PERF REST STRESS (10/07/2024 12:29 PM C[employer] SHE[employer]) Anatomical Region Laterality Modality Chest Nuclear Medicine 10/07/2024 1:02 PM [employer] Impressions 2024 6:09 AM [employer] IMPRESSION: Normal myocardial perfusion scan. > Interpreting Provider: Marti Nava MD on 2024 6:09 AM Narrative 2024 6:09 AM [employer] SHEET PROCEDURE: NM MYOCARD PERF REST STRESS, DATE/TIME OF EXAM: 10/07/2024 12:29 PM, LOCATION [facility] INDICATION: R06.02: Shortness of breath R00.0: [...] STRESS, DATE/TIME OF EXAM: 2:29 PM, LOCATION [facility] INDICATION: R06.02: Shortness of breath R00.0: [...] * STRESS TEST Treadmill (10/07/2024 11:48 AM [employer] SHE[employer]) Predicted METS 9.2 METS [facility] C V [...] Laterality Modality Ultrasound Narrative 2024 1:03 PM [employer] Stress: A pharmacological stress test was performed [...] Nuclear images reported under separate cover. Gwen Mcekon MD CARDIAC SERVICES CUP ID * ECHO COMPLETE (10/07/2024 10:10 AM [employer] SHE[employer]) LV EDV A2C 100 ml [facility] CV [...] Region Laterality Modality Ultrasound 10/07/2024 9:44 AM [employer] SHE[employer] Narrative 10/20/2024 9:50 AM [employer] Summary * Left ventricular systolic function is [...] 9:44 AM Patient Status: O/P Study Site: [facility] Primary Location: [facility] EStudy Info Exam Type: ECHO COMPLETE Indications R06.02 - Shortness of breath R00.0 - Tachycardia Procedure(s) * A complete 2D, color Doppler, spectral Doppler, and M-Mode transthoracic echocardiogram was performed. Staff Referring Physician: Gwen Mckeon Ordering Provider: Gwen Mckeon Attending Physician: Gwen Mckeon Support Manager: Lilia Camacho [facility] Left Ventricle Left ventricle [...] 9:44 AM Patient Status: O/P Study Site: [facility] Primary Location: [facility] EStudy Info Exam Type: ECHO COMPLETE Indications R06.02 - Shortness of breath R00.0 - Tachycardia Procedure(s) * A complete 2D, color Doppler, spectral Doppler, and M-Modetransthoracic echocardiogram was performed. Staff Referring Physician: Gwen Mckeon Ordering Provider: Gwen Mckeon Attending Physician: Gwen Mckeon Support Manager: Lilia Camacho [facility] Left Ventricle Left ventricle [...] 9.5 ...................... 7.0 3X AVERAGE...................>23........................>11 Adam Joe RECYCLING WORKER-CARE MANAGEMENT ASSISTANT LAB - CHEMISTR Y ORDERABLES [facility] [address] [place] [address], [facility] from Last 3 Months or Most Recently Relevant to Health Maintenance Advance Directives * Full Code (Latest Code Status on File) Date Activated Date Inactivated Comments 05/10/2019 3:58 PM 05/13/2019 11:39 AM * Full Code Date Activated Date Inactivated Comments 09/19/2014 4:44 PM 09/20/2014 1:35 PM Care Teams Special Education Itinerant Teacher Relationship Specialty Start Date End Date Telma Noel APRN-SUKI [address] [place] [phone] PCP - General Nurse Practitioner Family 09/10/24 Haley Valadez MD [address] [place] [address] Physician Pulmonary Disease 09/17/24
== END 2024-11-28 00:50 | disposition home or self-care (01) ==
LOC: ANHED 11-28 00:48
PROVIDERS: Emergency Provider Emergency Medicine
DX: J06.9 Acute upper respiratory infection, unspecified (principal); R60.0 Localized edema; R06.02 Shortness of breath; Z20.822 Contact with and (suspected) exposure to COVID-19; I10 Essential (primary) hypertension
CPT/HCPCS: 36415; 71046; 80053; 83880; 85025; 87637; 93005; 99284